=== PATIENT | female | born 1935 | race Caucasian/White ===

== ENCOUNTER 2020-03-22 03:42 | Inpatient (IN) | payer MEDICARE ==
[2020-03-22] MEDS ORDERED: IPRATROPIUM-ALBUTEROL 3 ML NEB INHALATION STA (03:45)
--- NOTE | 2020-03-22 03:48 | ED ---
SOB HPI - General Chief Complaint: Shortness of Breath Stated Complaint: FANTA Time Seen by Provider: 03/22/20 03:45 Source: patient, EMS, RN notes reviewed, old records reviewed Mode of arrival: EMS Limitations: no limitations - History of Present Illness Initial Comments: This is a 31-year-old female with a significantly poor strain secondary to clinical condition coming severely hypoxic in the 50s on BiPAP unresponsive. History obtained from EMS and patient's prior charting MD Complaint: shortness of breath -: unknown Severity: severe Severity scale (1-10): 10 Consistency: constant Improves With: oxygen, bronchodilators, upright position Worsens With: nothing Known History Of: other (unknown history) Associated Symptoms: denies other symptoms Treatments Prior to Arrival: none - Related Data Allergies Allergy/AdvReac Type Severity Reaction Status Date / Time codeine Allergy Anaphylaxis Verified 03/22/20 04:41 Penicillins Allergy Anaphylaxis Verified 03/22/20 04:41 Review of Systems ROS Statement: Those systems with pertinent positive or pertinent negative responses have been documented in the HPI. ROS Other: All systems not noted in ROS Statement are negative. Past Medical History Past Medical History: Unable to Obtain History of Any Multi-Drug Resistant Organisms: Unobtainable Past Surgical History: Unable to Obtain Past Psychological History: Unable to Obtain Smoking Status: Smoker, current status unknown Past Alcohol Use History: Unable to Obtain Past Drug Use History: Unable to Obtain General Exam Limitations: altered mental status General appearance: anxious, lethargic, obtunded, in distress Head exam: Present: atraumatic, normocephalic, normal inspection Eye exam: Present: normal appearance, PERRL, EOMI. Absent: scleral icterus, conjunctival injection, periorbital swelling ENT exam: Present: normal exam, mucous membranes moist Neck exam: Present: normal inspection. Absent: tenderness, meningismus, lymphadenopathy Respiratory exam: Present: respiratory distress, wheezes, accessory muscle use, decreased breath sounds, prolonged expiratory. Absent: rales, rhonchi, stridor Cardiovascular Exam: Present: regular rate, normal rhythm, normal heart sounds. Absent: systolic murmur, diastolic murmur, rubs, gallop, clicks GI/Abdominal exam: Present: soft, normal bowel sounds. Absent: distended, tenderness, guarding, rebound, rigid Extremities exam: Present: normal inspection, full ROM, normal capillary refill. Absent: tenderness, pedal edema, joint swelling, calf tenderness Back exam: Present: normal inspection Neurological exam: Present: alert, oriented X3, CN II-XII intact Psychiatric exam: Present: normal affect, normal mood Skin exam: Present: warm, dry, intact, normal color. Absent: rash Course Vital Signs 03/22/20 03/22/20 03/22/20 03:43 03:52 03:54 Temperature 97.4 F L Pulse Rate 90 87 Respiratory 18 35 H Rate Blood Pressure 148/92 O2 Sat by Pulse 97 Oximetry 03/22/20 04:29 Temperature Pulse Rate 77 Respiratory 18 Rate Blood Pressure 154/77 O2 Sat by Pulse 94 L Oximetry - Reevaluation(s) Reevaluation #1: 03/22/20 05:50 Medical record is reviewed with no prior hospital visits Reevaluation #2: 03/22/20 05:50 Patient has significant improvement on BiPAP is becoming more alert although still not conversing Reevaluation #3: 03/22/20 05:50 Patient is a no code - Consultations Consultation #1: Spoke with Dr. Roper who agrees to admit this patient Medical Decision Making - Medical Decision Making 84 female DF for evaluation persistent shortness of breath thickened disease. Patient be admitted for further evaluation management of severe hypoxia and monitoring of mental status - Lab Data Result diagrams: 03/22/20 03:48 03/22/20 03:48 Lab Results 03/22/20 03/22/20 03/22/20 Range/Units 03:48 03:48 03:48 WBC 17.4 H (3.8-10.6) k/uL RBC 3.96 (3.80-5.40) m/uL Hgb 12.0 (11.4-16.0) gm/dL Hct 37.1 (34.0-46.0) % MCV 93.7 (80.0-100.0) fL MCH 30.3 (25.0-35.0) pg MCHC 32.4 (31.0-37.0) g/dL RDW 15.8 H (11.5-15.5) % Plt Count 241 (150-450) k/uL MPV 7.9 Neutrophils % 81 % Lymphocytes % 8 % Monocytes % 6 % Eosinophils % 3 % Basophils % 1 % Neutrophils # 14.1 H (1.3-7.7) k/uL Lymphocytes # 1.4 (1.0-4.8) k/uL Monocytes # 1.0 (0-1.0) k/uL Eosinophils # 0.6 (0-0.7) k/uL Basophils # 0.1 (0-0.2) k/uL Sodium 127 L (137-145) mmol/L Potassium 5.3 H (3.5-5.1) mmol/L Chloride 93 L (98-107) mmol/L Carbon Dioxide 23 (22-30) mmol/L Anion Gap 11 mmol/L BUN 46 H (7-17) mg/dL Creatinine 1.54 H (0.52-1.04) mg/dL Est GFR (CKD-EPI)AfAm 36 (>60 ml/min/1.73 sqM) Est GFR (CKD-EPI)NonAf 31 (>60 ml/min/1.73 sqM) Glucose 292 H (74-99) mg/dL Plasma Lactic Acid Tom 2.2 H* (0.7-2.0) mmol/L Calcium 9.1 (8.4-10.2) mg/dL Phosphorus 7.1 H (2.5-4.5) mg/dL Magnesium 2.0 (1.6-2.3) mg/dL Total Bilirubin 1.0 (0.2-1.3) mg/dL AST 30 (14-36) U/L ALT 29 (4-34) U/L Alkaline Phosphatase 126 (38-126) U/L Creatine Kinase 33 (30-135) U/L Troponin I (0.000-0.034) ng/mL NT-Pro-B Natriuret Pep pg/mL Total Protein 6.2 L (6.3-8.2) g/dL Albumin 3.8 (3.5-5.0) g/dL 03/22/20 03/22/20 Range/Units 03:48 03:48 WBC (3.8-10.6) k/uL RBC (3.80-5.40) m/uL Hgb (11.4-16.0) gm/dL Hct (34.0-46.0) % MCV (80.0-100.0) fL MCH (25.0-35.0) pg MCHC (31.0-37.0) g/dL RDW (11.5-15.5) % Plt Count (150-450) k/uL MPV Neutrophils % % Lymphocytes % % Monocytes % % Eosinophils % % Basophils % % Neutrophils # (1.3-7.7) k/uL Lymphocytes # (1.0-4.8) k/uL Monocytes # (0-1.0) k/uL Eosinophils # (0-0.7) k/uL Basophils # (0-0.2) k/uL Sodium (137-145) mmol/L Potassium (3.5-5.1) mmol/L Chloride (98-107) mmol/L Carbon Dioxide (22-30) mmol/L Anion Gap mmol/L BUN (7-17) mg/dL Creatinine (0.52-1.04) mg/dL Est GFR (CKD-EPI)AfAm (>60 ml/min/1.73 sqM) Est GFR (CKD-EPI)NonAf (>60 ml/min/1.73 sqM) Glucose (74-99) mg/dL Plasma Lactic Acid Tom (0.7-2.0) mmol/L Calcium (8.4-10.2) mg/dL Phosphorus (2.5-4.5) mg/dL Magnesium (1.6-2.3) mg/dL Total Bilirubin (0.2-1.3) mg/dL AST (14-36) U/L ALT (4-34) U/L Alkaline Phosphatase (38-126) U/L Creatine Kinase (30-135) U/L Troponin I 0.075 H* (0.000-0.034) ng/mL NT-Pro-B Natriuret Pep 34081 pg/mL Total Protein (6.3-8.2) g/dL Albumin (3.5-5.0) g/dL - EKG Data -: EKG Interpreted by Me (EKG is sinus rhythm 89, [place] 04 QRS 96 QTc 450) - Radiology Data Radiology results: report reviewed (Chest x-ray shows bilateral diffuse edema and infiltrates infiltrate edema versus pneumonia), image reviewed Critical Care Time Critical Care Time: Yes Total Critical Care Time: 31 Disposition Clinical Impression: Community acquired pneumonia, Acute exacerbation of chronic obstructive pulmonary disease, Congestive heart failure, Acute pulmonary edema, Hypoxia Disposition: ADMITTED IP TO THIS [facility] Condition: Critical Is patient prescribed a controlled substance at d/c from ED?: No
[2020-03-22 04:02] LABS: Basophils # (A) 0.1 k/uL (0-0.2); Basophils % (A) 1 %; Eosinophils # (A) 0.6 k/uL (0-0.7); Eosinophils % (A) 3 %; HCT 37.1 % (34.0-46.0); Lymphocytes # (A) 1.4 k/uL (1.0-4.8); Lymphocytes % (A) 8 %; MCH 30.3 pg (25.0-35.0); MCHC 32.4 g/dL (31.0-37.0); MCV 93.7 fL (80.0-100.0); Mean Platelet Volume 7.9; Monocytes % (A) 6 %; Neutrophils # (A) 14.1 k/uL (1.3-7.7); Neutrophils % (A) 81 %; Platelet Count 241 k/uL (150-450); RBC 3.96 m/uL (3.80-5.40); RDW 15.8 % (11.5-15.5); WBC 17.4 k/uL (3.8-10.6)
[2020-03-22] MEDS ORDERED: MORPHINE SULFATE 2 MG/ML SYRINGE IVP STA (04:02)
[2020-03-22 04:11] LABS: Albumin 3.8 g/dL (3.5-5.0); Calcium 9.1 mg/dL (8.4-10.2); Phosphorus 7.1 mg/dL (2.5-4.5); Potassium 5.3 mmol/L (3.5-5.1); Total Protein 6.2 g/dL (6.3-8.2)
--- NOTE | 2020-03-22 04:13 | XR ---
EXAM: XR Chest, 1 View CLINICAL HISTORY: Shortness of breath. TECHNIQUE: Frontal view of the chest. COMPARISON: No previous study. FINDINGS: Lungs: Diffuse abnormal haziness is noted throughout the right lung differential etiologies which include atypical or diffuse pneumonia versus diffuse pulmonary edema. Pleural space: Small to moderate right pleural effusion. No pneumothorax. Heart: There is cardiomegaly. Mediastinum: Unremarkable. Bones/joints: Osteopenia. Vasculature: Atherosclerotic disease of the aortic knob. IMPRESSION: 1. Cardiomegaly. 2. Mild to moderate right pleural effusion appeared 3. Diffuse haziness throughout the right lung differential etiologies which include diffuse atypical pneumonia versus pulmonary edema. Clinical correlation is advised. 4. Atherosclerotic disease. 5. Osteopenia.
[2020-03-22] MEDS ORDERED: ALBUTEROL NEBULIZED 2.5 MG/3 ML INHALATION PRN (05:31)
[2020-03-22] MEDS ORDERED: AZITHROMYCIN 500 MG in SODIUM CHLORIDE 0.9% 250 ML IVPB STA (05:31)
[2020-03-22] MEDS ORDERED: PNEUMONIA PROTOCOL UTILIZED 1 EACH MISC PO PRN (05:31)
[2020-03-22] MEDS ORDERED: MORPHINE SULFATE 2 MG/ML SYRINGE IVP PRN (05:32)
[2020-03-22] MEDS ORDERED: LEVOFLOXACIN 750MG-D5W PMX 750 MG in DEXTROSE/WATER 1 150ML.BAG IVPB STA (05:35)
[2020-03-22 06:04] LABS: C Reactive Protein 44.8 mg/L (<10.0)
[2020-03-22] MEDS ORDERED: ONDANSETRON 4 MG/2 ML VIAL IVP STA (07:46)
[2020-03-22] MEDS: IPRATROPIUM-ALBUTEROL 3 ML NEB INHALATION SCH ×4 (07:56→19:50)
[2020-03-22] MEDS ORDERED: IPRATROPIUM-ALBUTEROL 3 ML NEB INHALATION PRN (11:57)
[2020-03-22] MEDS ORDERED: SPIRONOLACTONE 25 MG TAB PO SCH (12:00)
--- NOTE | 2020-03-22 12:27 | P.CRDCN ---
History of Present Illness Consult date: 03/22/20 Chief complaint: Shortness of breath History of present illness: This is an 84-year-old female patient who we consulted to see the emergency depa rtment today for further evaluation of shortness of breath. The patient somewhat is a poor historian. She was transferred from extended care facility mainly because of increasing shortness of breath and the need for more oxygen. Currently the patient is on BiPAP. She was seen at the emergency department with her daughter at bedside. The patient stated that for the last few days she has been more short of breath but no symptoms of chest pain or chest discomfort. No lower extremities edema. No fever or chills or cough. No dizziness or lightheadedness and no change in mental status until earlier today when the patient was at the shelter and the more obtunded. Because of that it was decided to bring the patient to the emergency department. The patient EKG showed sinus rhythm without any significant ST or T-wave abnormalities. She underwent a chest x-ray which showed bilateral infiltrate with a component of pulmonary edema as well. Subsequently the patient started on Lasix at 40 mg IV twice a day. The NT proBNP is 1500. Her lactic acid is elevated. The creatinine also is a slightly elevated. The patient was admitted according to her recently to [facility] with increasing shortness of breath and she was diagnosed was heart failure at that point. Past Medical History Past Medical History: Coronary Artery Disease (CAD), Heart Failure, COPD, CVA/TIA, Diabetes Mellitus, GERD/Reflux, Hyperlipidemia, Hypertension, Renal Disease, Syncope, Vascular Disorder Additional Past Medical History / Comment(s): Pt recently hospitalized 03/02/20 with CHF, bilateral pleural effusions/bilateral thoracentesis, syncope d/t hypoxia. Other hx: Aortic valve stenosis with replacement, cardiac arrhyth anuel, IDDM type II, CKD stage III, CVA with dysarthria/R sided weakness, chronic hypoxic respiratory failure, arthritis bilateral hands/feet, poor circulation, constipation History of Any Multi-Drug Resistant Organisms: None Reported Past Surgical History: Cardiac Valve Replacement, Heart Catheterization, Tonsillectomy Additional Past Surgical History / Comment(s): PAPITO, aortic valve replacement, colonoscopy Past Anesthesia/Blood Transfusion Reactions: No Reported Reaction Smoking Status: Never smoker - Past Family History Father Family Medical History: Myocardial Infarction (WA) Additional Family Medical History / Comment(s): Father of a [place] at the age of 47yrs. Mother Family Medical History: Coronary Artery Disease (CAD) Medications and Allergies Home Medications Medication Instructions Recorded Confirmed Type ALPRAZolam [Xanax] 0.25 mg PO TID PRN 03/22/20 03/22/20 History Acetaminophen Tab [Tylenol] 650 mg PO Q6H PRN 03/22/20 03/22/20 History Aspirin 81 mg PO DAILY 03/22/20 03/22/20 History Atenolol [Tenormin] 100 mg PO DAILY 03/22/20 03/22/20 History Atorvastatin [Lipitor] 20 mg PO HS 03/22/20 03/22/20 History Budesonide [Pulmicort] 0.5 mg INHALATION RT-BID@0600,2100 03/22/20 03/22/20 History Citalopram Hydrobromide [CeleXA] 20 mg PO DAILY 03/22/20 03/22/20 History Clotrimazole/Betamethasone Dip 1 applic TOPICAL BID 03/22/20 03/22/20 History [Lotrisone Cream] Furosemide [Lasix] 20 mg PO BID@0600,1200 03/22/20 03/22/20 History INSULIN LISPRO (humaLOG) [humaLOG] 2 units SQ ACHS 03/22/20 03/22/20 History Ipratropium-Albuterol Nebulize 3 ml INHALATION RT-Q6H PRN 03/22/20 03/22/20 History [Duoneb 0.5 mg-3 mg/3 ml Soln] Isosorbide Mononitrate ER [Imdur] 30 mg PO DAILY 03/22/20 03/22/20 History Linagliptin [Tradjenta] 5 mg PO DAILY 03/22/20 03/22/20 History Melatonin 3 mg PO HS 03/22/20 03/22/20 History Methylphenidate HCl [Ritalin] 20 mg PO BID@0600,1200 03/22/20 03/22/20 History Montelukast Sodium [Singulair] 10 mg PO HS 03/22/20 03/22/20 History Nystatin 100,000 Unit/ml Susp 500,000 units PO QID 03/22/20 03/22/20 History [Mycostatin Oral Susp] Pantoprazole Sodium [Protonix] 40 mg PO DAILY@0600 03/22/20 03/22/20 History Sennosides/Docusate Sodium [Senna 1 tab PO BID@0600,2100 03/22/20 03/22/20 History Plus 8.6-50 mg Tablet] Spironolactone [Aldactone] 25 mg PO DAILY 03/22/20 03/22/20 History amLODIPine [Norvasc] 10 mg PO DAILY 03/22/20 03/22/20 History cloNIDine HCL [Catapres] 0.05 mg PO BID 03/22/20 03/22/20 History diphenhydrAMINE & Zinc Cream 1 applic TOPICAL TID PRN 03/22/20 03/22/20 History [Benadryl Cream] hydrALAZINE HCL [Apresoline] 100 mg PO BID 03/22/20 03/22/20 History Allergies Allergy/AdvReac Type Severity Reaction Status Date / Time codeine Allergy Anaphylaxis Verified 03/22/20 07:39 Penicillins Allergy Anaphylaxis Verified 03/22/20 07:39 Physical Exam Vitals: Vital Signs Temp Pulse Resp BP Pulse Ox 03/22/20 09:17 61 20 108/44 95 03/22/20 08:08 64 03/22/20 07:56 64 03/22/20 07:41 64 24 120/52 93 L 03/22/20 07:14 67 18 119/48 93 L 03/22/20 04:29 77 18 154/77 94 L 03/22/20 03:54 87 03/22/20 03:52 35 H 03/22/20 03:43 97.4 F L 90 18 148/92 97 Intake and Output 03/21/20 03/22/20 03/22/20 22:59 06:59 14:59 Other: Weight 68.9 kg 68.9 kg - Constitutional General appearance: no acute distress - Respiratory Respiratory: bilateral: diminished - Cardiovascular Heart sounds: normal: S1, S2 Abnormal Heart Sounds: systolic murmur Results 03/22/20 03:48 03/22/20 03:48 Cardiac Enzymes 03/22/20 03/22/20 03/22/20 Range/Units 03:48 03:48 03:48 AST 30 (14-36) U/L Lactate Dehydrogenase 862 H (313-618) U/L Troponin I 0.075 H* (0.000-0.034) ng/mL CBC 03/22/20 Range/Units 03:48 WBC 17.4 H (3.8-10.6) k/uL RBC 3.96 (3.80-5.40) m/uL Hgb 12.0 (11.4-16.0) gm/dL Hct 37.1 (34.0-46.0) % Plt Count 241 (150-450) k/uL Comprehensive Metabolic Panel 03/22/20 Range/Units 03:48 Sodium 127 L (137-145) mmol/L Potassium 5.3 H (3.5-5.1) mmol/L Chloride 93 L (98-107) mmol/L Carbon Dioxide 23 (22-30) mmol/L BUN 46 H (7-17) mg/dL Creatinine 1.54 H (0.52-1.04) mg/dL Glucose 292 H (74-99) mg/dL Calcium 9.1 (8.4-10.2) mg/dL AST 30 (14-36) U/L ALT 29 (4-34) U/L Alkaline Phosphatase 126 (38-126) U/L Total Protein 6.2 L (6.3-8.2) g/dL Albumin 3.8 (3.5-5.0) g/dL Current Medications Generic Name Dose Route Start Last Admin Trade Name Freq PRN Reason Stop Dose Admin Acetaminophen 650 mg 03/22/20 11:54 Acetaminophen Tab 325 Mg Tab PO Q6H PRN Pain Albuterol Sulfate 2.5 mg 03/22/20 05:31 Albuterol Nebulized 2.5 Mg/3 Ml INHALATION RT-Q4H PRN Shortness Of Breath Or Wheezing Albuterol/Ipratropium 3 ml 03/22/20 08:00 03/22/20 07:56 Ipratropium-Albuterol 3 Ml Neb INHALATION 3 ml RT-QID LANEY Administration Albuterol/Ipratropium 3 ml 03/22/20 11:57 Ipratropium-Albuterol 3 Ml Neb INHALATION RT-Q6H PRN Shortness Of Breath Amlodipine Besylate 10 mg 03/23/20 09:00 Amlodipine 10 Mg Tab PO DAILY [facility] Aspirin 81 mg 03/23/20 09:00 Aspirin 81 Mg PO DAILY [facility] Atenolol 100 mg 03/23/20 09:00 Atenolol 50 Mg Tab PO DAILY [facility] Atorvastatin Calcium 20 mg 03/22/20 21:00 Atorvastatin 20 Mg Tab PO HS [facility] Betamethasone/Clotrimazole 1 applic 03/22/20 21:00 Clotrimazole/Betameth 1-0.05% Cream 45 Gm Tube TOPICAL BID [facility] Budesonide 0.5 mg 03/22/20 21:00 Budesonide 0.5 Mg/2 Ml Nebu INHALATION RT-BID@0600,2100 [facility] Citalopram Hydrobromide 20 mg 03/23/20 09:00 Citalopram Hydrobromide 20 Mg Tab PO DAILY [facility] Clonidine 0.05 mg 03/22/20 21:00 Clonidine Hcl 0.1 Mg Tab PO BID [facility] Furosemide 40 mg 03/22/20 12:00 Furosemide 10 Mg/Ml 4 Ml Vial IV Q12HR [facility] Hydralazine HCl 100 mg 03/22/20 21:00 Hydralazine Hcl 50 Mg Tab PO BID [facility] Isosorbide Mononitrate 30 mg 03/23/20 09:00 Isosorbide Mononitrate Er 30 Mg Tab.Er.24h PO DAILY [facility] Miscellaneous Information 1 each 03/22/20 05:31 Pneumonia Protocol Utilized 1 Each Misc PO ONCE PRN Per Protocol Morphine Sulfate 2 mg 03/22/20 05:32 Morphine Sulfate 2 Mg/Ml Syringe IVP Q4H PRN Pain/Discomfort Nystatin 500,000 unit 03/22/20 13:00 Nystatin 100,000 Unit/Ml Susp 500,000 Unit/5 Ml Cup PO QID [facility] Senna/Docusate Sodium 1 each 03/22/20 21:00 Sennosides-Docusate Sodium 1 Each Tab PO BID@0600,2100 [facility] Intake and Output 03/21/20 03/22/20 03/22/20 22:59 06:59 14:59 Other: Weight 68.9 kg 68.9 kg Patient Weight 03/23/20 06:59 Weight 68.9 kg 03/22/20 03:48 03/22/20 03:48 Assessment and Plan Assessment: Assessment #1 mild acute respiratory distress #2 heart failure of unknown etiology at this point #3 possible underlying pneumonia #4 renal failure #5 hypertension #6 multiple comorbid conditions Plan #1 continue the IV Lasix for additional 24 hours #2 continue monitoring the kidney function and electrolytes #3 obtain an echocardiogram was Doppler to assess ejection fraction #4 follow-up with the patient
[2020-03-22] MEDS: FUROSEMIDE 10 MG/ML 4 ML VIAL IV SCH ×2 (13:05→20:17)
[2020-03-22] MEDS: LORazepam 2 MG/ML INJ IV PRN ×2 (13:06→22:47)
[2020-03-22] MEDS: NYSTATIN 100,000 UNIT/ML SUSP 500,000 UNIT/5 ML CUP PO SCH ×3 (13:30→20:16)
--- NOTE | 2020-03-22 15:13 | P.HPIM ---
History of Present Illness H&P Date: 03/22/20 Chief Complaint: Difficulty breathing HISTORY OF PRESENT ILLNESS This is an 84-year-old female patient of Dr. Valente with past medical history of coronary artery disease, aortic valve stenosis status post replacement, chronic systolic heart failure, diabetes mellitus type 2, hypertension, hyperlipidemia, CVA with dysarthria and right-sided weakness, chronic hypoxic respiratory failure on home O2, chronic kidney disease stage III, generalized anxiety disorder. Patient was recently seen at [facility] which time she was treated for pleural effusions status post bilateral thoracentesis. Patient is known to have severe tricuspid regurgitation. Patient was recently started on methylphenidate 20 mg twice daily. She went to [facility] but had a panic attack and [facility]. Also [facility] did not have BiPAP which she required. She was stabilized and then discharged back to [facility]. Patient was then doing well until yesterday when she developed increasing shortness of breath. He also had increasing lower extremity edema. Denies having any chest pain. No lightheadedness or dizziness. Patient presented to [facility] emergency center for evaluation. EKG was sinus rhythm without acute ST changes. Chest x-ray showed bilateral infiltrates with component of pulmonary edema. ProBNP 31110. Lactic acid 2.2 with repeat of 1.3. Sodium 127, potassium 5.3, chloride 93, CO2 23, BUN 46 and creatinine 1.54. Blood sugar 292. Phosphorus 7.1, magnesium 2.0. LDH 862. Troponin 0.075. C-reactive protein 44.8. Coronavirus PCR not detected. Patient has been started on IV Lasix 40 mg twice daily, consults requested with pulmonary medicine, cardiology and nephrology. REVIEW OF SYSTEMS Constitutional: No fever, no chills, no night sweats. No weight change. Reports weakness, reports fatigue. No daytime sleepiness. EENT: No headache. No blurred vision or double vision, no loss of vision. No loss of Hearing, no ringing in the ears, no dizziness. No nasal drainage or congestion. No epistaxis. No sore throat. Lungs: Reports shortness of breath, cough, no sputum production. No wheezing. Cardiovascular: No chest pain, reports lower extremity edema. No palpitations. No paroxysmal nocturnal dyspnea. No orthopnea. No lightheadedness or dizziness. No syncopal episodes. Abdominal: No abdominal pain. No nausea, vomiting. No diarrhea. No constipation. No bloody or tarry stools reports loss of appetite. Genitourinary: No dysuria, increased frequency, urgency. No urinary retention. Musculoskeletal: No myalgias. No muscle weakness, no gait dysfunction, no frequent falls. No back pain. No neck pain. Integumentary: No wounds, no lesions. No rash or pruritus. No unusual bruising. No change in hair or nails. Neurologic: No aphasia. No facial droop. No change in mentation. No head injury. No headache. No paralysis. No paresthesia. Psychiatric: No depression. No anxiety. No mood swings. Endocrine: No abnormal blood sugars. No weight change. No excessive sweating or thirst. No cold intolerance. PHYSICAL EXAMINATION Gen: This is an 84-year-old female. Patient is on the ER stretcher. Daughter places at the bedside. HEENT: Head is atraumatic, normocephalic. Pupils equal, round. Sclerae is anicteric. Patient is on BiPAP. NECK: Supple. No JVD. No lymphadenopathy. No thyromegaly. LUNGS: Clear to auscultation. No wheezes or rhonchi. Mild to moderate intercostal retractions. HEART: Regular rate and rhythm. Systolic murmur. ABDOMEN: Soft. Bowel sounds are present. No masses. No tenderness. EXTREMITIES: 1+ bilateral pedal edema. No calf tenderness. NEUROLOGICAL: Patient is awake, alert and oriented x3. Cranial nerves 2 through 12 are grossly intact. ASSESSMENT AND PLAN 1. Acute on chronic hypoxic respiratory failure requiring BiPAP. Consult pulmonary medicine. Continue oxygen therapy with BiPAP. Continue DuoNeb treatments 4 times daily and as needed, Pulmicort 0.5 mg twice daily and repeat chest x-ray tomorrow. Pro-calcitonin ordered, sputum culture. 2. Acute on chronic heart failure, possible systolic. Echocardiogram ordered. Patient started on Lasix 40 mg IV twice daily, cardiology consult, monitor I&O and daily weights, monitor electrolytes and renal function. 3. Acute kidney injury with chronic kidney disease stage III. Consult with nephrology added. 4. Hyponatremia. 5. Diabetes mellitus type 2, uncontrolled with hyperglycemia. 6. Hypertension. Continue amlodipine 10 mg daily, atenolol 100 mg daily, Catapres 0.05 mg twice daily, hydralazine 100 mg twice daily. 7. Hyperlipidemia. Continue Lipitor 29 g at bedtime 8. History of CVA with right-sided weakness. Continue aspirin 81 mg daily, Lipitor 20 mg at bedtime for secondary prevention 9. History of coronary artery disease. Continue Imdur 30 mg daily. 10. Generalized anxiety disorder. Xanax on hold. Lorazepam 0.5 mg every 8 hours as needed for anxiety 11. GI prophylaxis. Protonix. 12. DVT prophylaxis. Heparin subcu. CODE STATUS: No code Patient will be admitted to the hospital for a minimum of 2 night stay. DISCHARGE PLAN Return to [facility] most likely. Impression and plan of care have been directed as dictated by the signing physician. Irma Stoll nurse practitioner acting as scribe for signing physician. Past Medical History Past Medical History: Coronary Artery Disease (CAD), Heart Failure, COPD, CVA/TIA, Diabetes Mellitus, GERD/Reflux, Hyperlipidemia, Hypertension, Renal Disease, Syncope, Vascular Disorder Additional Past Medical History / Comment(s): Pt recently hospitalized 03/02/20 with CHF, bilateral pleural effusions/bilateral thoracentesis, syncope d/t hypoxia. Other hx: Aortic valve stenosis with replacement, cardiac arrhythmia, IDDM type II, CKD stage III, CVA with dysarthria/R sided weakness, chronic hypoxic respiratory failure, arthritis bilateral hands/feet, poor circulation, constipation History of Any Multi-Drug Resistant Organisms: None Reported Past Surgical History: Cardiac Valve Replacement, Heart Catheterization, Tonsillectomy Additional Past Surgical History / Comment(s): PAPITO, aortic valve replacement, colonoscopy Smoking Status: Never smoker - Past Family History Father Family Medical History: Myocardial Infarction (ID) Additional Family Medical History / Comment(s): Father of a ID at the age of 47yrs. Mother Family Medical History: Coronary Artery Disease (CAD) Medications and Allergies Home Medications Medication Instructions Recorded Confirmed Type ALPRAZolam [Xanax] 0.25 mg PO TID PRN 03/22/20 03/22/20 History Acetaminophen Tab [Tylenol] 650 mg PO Q6H PRN 03/22/20 03/22/20 History Aspirin 81 mg PO DAILY 03/22/20 03/22/20 History Atenolol [Tenormin] 100 mg PO DAILY 03/22/20 03/22/20 History Atorvastatin [Lipitor] 20 mg PO HS 03/22/20 03/22/20 History Budesonide [Pulmicort] 0.5 mg INHALATION RT-BID@0600,2100 03/22/20 03/22/20 History Citalopram Hydrobromide [CeleXA] 20 mg PO DAILY 03/22/20 03/22/20 History Clotrimazole/Betamethasone Dip 1 applic TOPICAL BID 03/22/20 03/22/20 History [Lotrisone Cream] Furosemide [Lasix] 20 mg PO BID@0600,1200 03/22/20 03/22/20 History INSULIN LISPRO (humaLOG) [humaLOG] 2 units SQ ACHS 03/22/20 03/22/20 History Ipratropium-Albuterol Nebulize 3 ml INHALATION RT-Q6H PRN 03/22/20 03/22/20 History [Duoneb 0.5 mg-3 mg/3 ml Soln] Isosorbide Mononitrate ER [Imdur] 30 mg PO DAILY 03/22/20 03/22/20 History Linagliptin [Tradjenta] 5 mg PO DAILY 03/22/20 03/22/20 History Melatonin 3 mg PO HS 03/22/20 03/22/20 History Methylphenidate HCl [Ritalin] 20 mg PO BID@0600,1200 03/22/20 03/22/20 History Montelukast Sodium [Singulair] 10 mg PO HS 03/22/20 03/22/20 History Nystatin 100,000 Unit/ml Susp 500,000 units PO QID 03/22/20 03/22/20 History [Mycostatin Oral Susp] Pantoprazole Sodium [Protonix] 40 mg PO DAILY@0600 03/22/20 03/22/20 History Sennosides/Docusate Sodium [Senna 1 tab PO BID@0600,2100 03/22/20 03/22/20 History Plus 8.6-50 mg Tablet] Spironolactone [Aldactone] 25 mg PO DAILY 03/22/20 03/22/20 History amLODIPine [Norvasc] 10 mg PO DAILY 03/22/20 03/22/20 History cloNIDine HCL [Catapres] 0.05 mg PO BID 03/22/20 03/22/20 History diphenhydrAMINE & Zinc Cream 1 applic TOPICAL TID PRN 03/22/20 03/22/20 History [Benadryl Cream] hydrALAZINE HCL [Apresoline] 100 mg PO BID 03/22/20 03/22/20 History Allergies Allergy/AdvReac Type Severity Reaction Status Date / Time codeine Allergy Anaphylaxis Verified 03/22/20 07:39 Penicillins Allergy Anaphylaxis Verified 03/22/20 07:39 Physical Exam Vitals: Vital Signs Temp Pulse Resp BP Pulse Ox 03/22/20 09:17 61 20 108/44 95 03/22/20 08:08 64 03/22/20 07:56 64 03/22/20 07:41 64 24 120/52 93 L 03/22/20 07:14 67 18 119/48 93 L 03/22/20 04:29 77 18 154/77 94 L 03/22/20 03:54 87 03/22/20 03:52 35 H 03/22/20 03:43 97.4 F L 90 18 148/92 97 Intake and Output 03/21/20 03/22/20 03/22/20 22:59 06:59 14:59 Other: Weight 68.9 kg 68.9 kg Results CBC & Chem 7: 03/22/20 03:48 03/22/20 03:48 Labs: Abnormal Lab Results - Last 24 Hours (Table) 03/22/20 03/22/20 03/22/20 Range/Units 03:48 03:48 03:48 WBC 17.4 H (3.8-10.6) k/uL RDW 15.8 H (11.5-15.5) % Neutrophils # 14.1 H (1.3-7.7) k/uL Sodium 127 L (137-145) mmol/L Potassium 5.3 H (3.5-5.1) mmol/L Chloride 93 L (98-107) mmol/L BUN 46 H (7-17) mg/dL Creatinine 1.54 H (0.52-1.04) mg/dL Glucose 292 H (74-99) mg/dL Plasma Lactic Acid Tom 2.2 H* (0.7-2.0) mmol/L Phosphorus 7.1 H (2.5-4.5) mg/dL Lactate Dehydrogenase (313-618) U/L Troponin I (0.000-0.034) ng/mL C-Reactive Protein (<10.0) mg/L Total Protein 6.2 L (6.3-8.2) g/dL 03/22/20 03/22/20 Range/Units 03:48 03:48 WBC (3.8-10.6) k/uL RDW (11.5-15.5) % Neutrophils # (1.3-7.7) k/uL Sodium (137-145) mmol/L Potassium (3.5-5.1) mmol/L Chloride (98-107) mmol/L BUN (7-17) mg/dL Creatinine (0.52-1.04) mg/dL Glucose (74-99) mg/dL Plasma Lactic Acid Tom (0.7-2.0) mmol/L Phosphorus (2.5-4.5) mg/dL Lactate Dehydrogenase 862 H (313-618) U/L Troponin I 0.075 H* (0.000-0.034) ng/mL C-Reactive Protein 44.8 H (<10.0) mg/L Total Protein (6.3-8.2) g/dL
[2020-03-22 17:08] LABS: Glucose,Whole Blood 126 mg/dL (75-99)
[2020-03-22] MEDS: ACETAMINOPHEN TAB 325 MG TAB PO PRN (18:08)
[2020-03-22] MEDS: BUDESONIDE 0.5 MG/2 ML NEBU INHALATION SCH (20:07)
[2020-03-22] MEDS: SENNOSIDES-DOCUSATE SODIUM 1 EACH TAB PO SCH (20:16)
[2020-03-22] MEDS: hydrALAZINE HCL 50 MG TAB PO SCH (20:16)
[2020-03-22] MEDS: HEPARIN SODIUM,PORCINE 5,000 UNIT/ML 1 ML VIAL SQ SCH (20:16)
[2020-03-22] MEDS: CLOTRIMAZOLE/BETAMETH 1-0.05% CREAM 45 GM TUBE TOPICAL SCH (20:16)
[2020-03-22] MEDS: cloNIDine HCL 0.1 MG TAB PO SCH (20:16)
[2020-03-22] MEDS: ATORVASTATIN 20 MG TAB PO SCH (20:16)
[2020-03-22 20:21] LABS: Glucose,Whole Blood 188 mg/dL (75-99)
[2020-03-23] MEDS ORDERED: AZITHROMYCIN 500 MG TAB PO SCH (05:31)
[2020-03-23 06:12] LABS: Glucose,Whole Blood 146 mg/dL (75-99)
[2020-03-23] MEDS: PANTOPRAZOLE 40 MG TABLET PO SCH (06:28)
[2020-03-23] MEDS: SENNOSIDES-DOCUSATE SODIUM 1 EACH TAB PO SCH ×2 (06:28→20:12)
[2020-03-23] MEDS: BUDESONIDE 0.5 MG/2 ML NEBU INHALATION SCH ×3 (07:41→19:40)
[2020-03-23] MEDS: IPRATROPIUM-ALBUTEROL 3 ML NEB INHALATION SCH ×4 (07:42→19:37)
--- NOTE | 2020-03-23 08:15 | XR ---
EXAMINATION TYPE: XR chest 1V portable DATE OF EXAM: 03/23/2020 COMPARISON: 03/22/2020 INDICATION: Pneumonia TECHNIQUE: Single frontal view of the chest is obtained. FINDINGS: The heart size is upper limits of normal. The pulmonary vasculature is prominent. Bibasilar infiltrates are present. Small pleural effusions are present. IMPRESSION: 1. Clinical correlation recommended for congestive heart failure. Bibasilar pneumonia could be consid ered. Bibasilar atelectasis is slightly favored.
[2020-03-23] MEDS: CITALOPRAM HYDROBROMIDE 20 MG TAB PO SCH (09:24)
[2020-03-23] MEDS: ISOSORBIDE MONONITRATE ER 30 MG TAB.ER.24H PO SCH (09:24)
[2020-03-23] MEDS: HEPARIN SODIUM,PORCINE 5,000 UNIT/ML 1 ML VIAL SQ SCH ×2 (09:24→20:12)
[2020-03-23] MEDS: ASPIRIN 81 MG PO SCH (09:25)
[2020-03-23] MEDS: cloNIDine HCL 0.1 MG TAB PO SCH ×2 (09:25→20:12)
[2020-03-23] MEDS: hydrALAZINE HCL 50 MG TAB PO SCH ×2 (09:25→20:12)
[2020-03-23] MEDS: atenoloL 50 MG TAB PO SCH (09:25)
[2020-03-23] MEDS: amLODIPine 10 MG TAB PO SCH (09:25)
[2020-03-23] MEDS: NYSTATIN 100,000 UNIT/ML SUSP 500,000 UNIT/5 ML CUP PO SCH ×4 (09:26→20:12)
[2020-03-23] MEDS: FUROSEMIDE 10 MG/ML 4 ML VIAL IV SCH ×2 (09:26→20:12)
[2020-03-23] MEDS: CLOTRIMAZOLE/BETAMETH 1-0.05% CREAM 45 GM TUBE TOPICAL SCH ×2 (09:26→20:13)
[2020-03-23 11:39] LABS: Glucose,Whole Blood 163 mg/dL (75-99)
[2020-03-23] MEDS ORDERED: VANCOMYCIN IV PER PHARMACY 1 EACH MISC MISCELLANE PRN (12:21)
[2020-03-23] MEDS: LEVOFLOXACIN 500MG-D5W PMX 500 MG in DEXTROSE/WATER 1 100ML.BAG IVPB SCH (13:01)
[2020-03-23] MEDS: VANCOMYCIN 1,250 MG in SODIUM CHLORIDE 0.9% 250 ML IVPB SCH (13:02)
[2020-03-23 13:38] LABS: Basophils # (A) 0.1 k/uL (0-0.2); Basophils % (A) 1 %; Eosinophils # (A) 0.2 k/uL (0-0.7); Eosinophils % (A) 2 %; HCT 31.6 % (34.0-46.0); HGB 10.2 gm/dL (11.4-16.0); Lymphocytes # (A) 0.8 k/uL (1.0-4.8); Lymphocytes % (A) 10 %; MCH 30.7 pg (25.0-35.0); MCHC 32.3 g/dL (31.0-37.0); MCV 95.1 fL (80.0-100.0); Mean Platelet Volume 7.9; Monocytes # (A) 0.6 k/uL (0-1.0); Monocytes % (A) 7 %; Neutrophils # (A) 6.3 k/uL (1.3-7.7); Neutrophils % (A) 78 %; Platelet Count 172 k/uL (150-450); RBC 3.32 m/uL (3.80-5.40); RDW 15.4 % (11.5-15.5)
[2020-03-23 13:48] LABS: Calcium 8.5 mg/dL (8.4-10.2)
--- NOTE | 2020-03-23 13:58 | P.NPCON ---
History of Present Illness - Reason for Consult acute renal failure - History of Present Illness Reason for consultation: Acute kidney injury and hyponatremia History of present illness: Patient is a 84-year-old female seen in consultation for acute kidney injury and hyponatremia. Creatinine was 1.54 on admission and is 1.66 today. Sodium level was 127 and is 128 today. Patient presented to the hospital from [facility] with shortness of breath. She was noted to be unresponsive with oxygen saturation in the 50s. Currently she is on a high flow nasal cannula 15 L. Blood pressure is stable. No active chest pain or shortness of breath. Chest x-ray suggestive of fluid overload. No vomiting or diarrhea. Oral intake fair. Currently maintained on IV Lasix. Has a Calix catheter. No dizziness or syncopal episodes. She has been evaluated by cardiology. Echocardiogram is pending. No hematuria or dysuria. No fever or chills. Denies any cough. Denies regular use of nonsteroidals. No family history of renal disease. She does have long- standing history of diabetes. Currently sitting up in chair. Vital signs are stable. General: The patient appeared well nourished and normally developed. HEENT: Head exam is unremarkable. Neck is without jugular venous distension. LUNGS: Breath sounds decreased. HEART: Rate and Rhythm are regular. ABDOMEN: Soft, nontender. EXTREMITITES: Trace edema. Past Medical History Past Medical History: Coronary Artery Disease (CAD), Heart Failure, COPD, CVA/TIA, Diabetes Mellitus, GERD/Reflux, Hyperlipidemia, Hypertension, Renal Disease, Syncope, Vascular Disorder Additional Past Medical History / Comment(s): Pt recently hospitalized 03/02/20 with CHF, bilateral pleural effusions/bilateral thoracentesis, syncope d/t hypoxia. Other hx: Aortic valve stenosis with replacement, cardiac arr hythmia, IDDM type II, CKD stage III, CVA with dysarthria/R sided weakness, chronic hypoxic respiratory failure, arthritis bilateral hands/feet, poor circulation, constipation History of Any Multi-Drug Resistant Organisms: None Reported Past Surgical History: Cardiac Valve Replacement, Heart Catheterization, Tonsillectomy Additional Past Surgical History / Comment(s): PAPITO, aortic valve replacement, colonoscopy Past Anesthesia/Blood Transfusion Reactions: No Reported Reaction Smoking Status: Never smoker - Past Family History Father Family Medical History: Myocardial Infarction (MA) Additional Family Medical History / Comment(s): Father of a MA at the age of 47yrs. Mother Family Medical History: Coronary Artery Disease (CAD) Medications and Allergies Home Medications Medication Instructions Recorded Confirmed Type ALPRAZolam [Xanax] 0.25 mg PO TID PRN 03/22/20 03/22/20 History Acetaminophen Tab [Tylenol] 650 mg PO Q6H PRN 03/22/20 03/22/20 History Aspirin 81 mg PO DAILY 03/22/20 03/22/20 History Atenolol [Tenormin] 100 mg PO DAILY 03/22/20 03/22/20 History Atorvastatin [Lipitor] 20 mg PO HS 03/22/20 03/22/20 History Budesonide [Pulmicort] 0.5 mg INHALATION RT-BID@0600,2100 03/22/20 03/22/20 History Citalopram Hydrobromide [CeleXA] 20 mg PO DAILY 03/22/20 03/22/20 History Clotrimazole/Betamethasone Dip 1 applic TOPICAL BID 03/22/20 03/22/20 History [Lotrisone Cream] Furosemide [Lasix] 20 mg PO BID@0600,1200 03/22/20 03/22/20 History INSULIN LISPRO (humaLOG) [humaLOG] 2 units SQ ACHS 03/22/20 03/22/20 History Ipratropium-Albuterol Nebulize 3 ml INHALATION RT-Q6H PRN 03/22/20 03/22/20 History [Duoneb 0.5 mg-3 mg/3 ml Soln] Isosorbide Mononitrate ER [Imdur] 30 mg PO DAILY 03/22/20 03/22/20 History Linagliptin [Tradjenta] 5 mg PO DAILY 03/22/20 03/22/20 History Melatonin 3 mg PO HS 03/22/20 03/22/20 History Methylphenidate HCl [Ritalin] 20 mg PO BID@0600,1200 03/22/20 03/22/20 History Montelukast Sodium [Singulair] 10 mg PO HS 03/22/20 03/22/20 History Nystatin 100,000 Unit/ml Susp 500,000 units PO QID 03/22/20 03/22/20 History [Mycostatin Oral Susp] Pantoprazole Sodium [Protonix] 40 mg PO DAILY@0600 03/22/20 03/22/20 History Sennosides/Docusate Sodium [Senna 1 tab PO BID@0600,2100 03/22/20 03/22/20 History Plus 8.6-50 mg Tablet] Spironolactone [Aldactone] 25 mg PO DAILY 03/22/20 03/22/20 History amLODIPine [Norvasc] 10 mg PO DAILY 03/22/20 03/22/20 History cloNIDine HCL [Catapres] 0.05 mg PO BID 03/22/20 03/22/20 History diphenhydrAMINE & Zinc Cream 1 applic TOPICAL TID PRN 03/22/20 03/22/20 History [Benadryl Cream] hydrALAZINE HCL [Apresoline] 100 mg PO BID 03/22/20 03/22/20 History Allergies Allergy/AdvReac Type Severity Reaction Status Date / Time codeine Allergy Anaphylaxis Verified 03/22/20 07:39 Penicillins Allergy Anaphylaxis Verified 03/22/20 07:39 Physical Exam Vitals: Vital Signs Temp Pulse Pulse Resp BP Pulse Ox 03/23/20 12:00 98.1 F 65 17 104/47 93 L 03/23/20 11:10 68 03/23/20 10:57 68 03/23/20 09:40 98 F 72 18 127/53 91 L 03/23/20 04:00 98.9 F 74 22 132/54 95 03/22/20 23:39 98.8 F 86 21 123/56 91 L 03/22/20 20:01 60 03/22/20 20:00 100 F H 89 18 134/64 91 L 03/22/20 19:50 60 03/22/20 16:23 60 03/22/20 16:12 60 03/22/20 16:00 100.5 F H 74 152/64 92 L Intake and Output 03/22/20 03/23/20 03/23/20 22:59 06:59 14:59 Intake Total 125 125 Output Total 460 510 Balance -335 -510 125 Intake: Oral 125 125 Output: Urine 460 510 Other: Voiding Method Indwelling Catheter Indwelling Catheter Indwelling Catheter Results - Lab Results Most recent lab results Calcium 9.1 mg/dL (8.4-10.2) 03/22/20 03:48 Phosphorus 7.1 mg/dL (2.5-4.5) H 03/22/20 03:48 Magnesium 2.0 mg/dL (1.6-2.3) 03/22/20 03:48 03/23/20 13:09 03/22/20 03:48 Assessment and Plan Plan: Assessment: 1. Acute kidney injury versus chronic kidney disease. No prior records available. Creatinine serially stable at 1.66 today. 2. Hypervolemic hyponatremia. 3. CHF. Unknown ejection fraction. Echocardiogram pending. 4. Fluid overload. 5. Diabetes mellitus. 6. Acute hypoxic respiratory failure. 7. Hypertension with chronic kidney disease. Blood pressure little on the lower side. Plan: Maintain IV Lasix. Low-salt diet and 1200 mL fluid restriction. Strict is and os. Check urinalysis. Check renal ultrasound. Follow-up echocardiogram. Repeat electrolytes in the morning. Hold hydralazine for systolic blood pressure less than 120. Thank you for the consultation. I will continue to follow the patient with you during her hospital stay.
--- NOTE | 2020-03-23 14:06 | P.PN ---
Subjective Progress Note Date: 03/23/20 HISTORY OF PRESENT ILLNESS: Patient examined this morning at the bedside. She denies chest pain or pressure. She reports feeling short of breath. She is on 15 L nasal cannula. She remains on IV Lasix. Creatinine 1.66 today, up from 1.54 yesterday. Fluid balance of the last 24 hours is -845 mL. PHYSICAL EXAM: VITAL SIGNS: Reviewed. GENERAL: Well-developed in no acute distress. NECK: Supple. No JVD or thyromegaly LUNGS: Respirations even and unlabored. Lungs diminished. HEART: Regular rate and rhythm. S1 and S2 heard. Systolic mumur noted. EXTREMITIES: Normal range of motion. No clubbing or cyanosis. Peripheral pulses intact. Trace bilateral lower extremity edema ASSESSMENT: Acute exacerbation of chronic heart failure, type unknown, echo pending Possible pneumonia Acute hypoxic respiratory failure Acute on chronic kidney disease Hypertension Hyperlipidemia History of CVA with right-sided weakness Diabetes mellitus PLAN: 2D echo ordered. Await results Wean oxygen as tolerated Continue IV lasix Monitor kidney function Accurate I&O Daily weights Further recommendations pending patient course Nurse practitioner note has been reviewed by physician. Signing provider agrees with the documented findings, assessment, and plan of care. Objective - Vital Signs Vital signs: Vital Signs Temp 98.1 F 03/23/20 12:00 Pulse 65 03/23/20 12:00 Resp 17 03/23/20 12:00 BP 104/47 03/23/20 12:00 Pulse Ox 93 L 03/23/20 12:00 Intake & Output 03/22/20 03/23/20 03/23/20 18:59 06:59 18:59 Intake Total 125 125 Output Total 970 Balance 125 -970 125 Weight 68.9 kg Intake: Oral 125 125 Output: Urine 970 Other: Voiding Method Indwelling Catheter Indwelling Catheter - Labs CBC & Chem 7: 03/23/20 13:09 03/23/20 13:09 Labs: Abnormal Lab Results - Last 24 Hours (Table) 03/22/20 03/22/20 03/22/20 Range/Units 03:48 17:02 20:19 RBC (3.80-5.40) m/uL Hgb (11.4-16.0) gm/dL Hct (34.0-46.0) % Lymphocytes # (1.0-4.8) k/uL Sodium (137-145) mmol/L Chloride (98-107) mmol/L BUN (7-17) mg/dL Creatinine (0.52-1.04) mg/dL Glucose (74-99) mg/dL POC Glucose (mg/dL) 126 H 188 H (75-99) mg/dL Procalcitonin 0.22 H (0.02-0.09) ng/mL 03/23/20 03/23/20 03/23/20 Range/Units 06:11 11:34 13:09 RBC (3.80-5.40) m/uL Hgb (11.4-16.0) gm/dL Hct (34.0-46.0) % Lymphocytes # (1.0-4.8) k/uL Sodium 128 L (137-145) mmol/L Chloride 97 L (98-107) mmol/L BUN 54 H (7-17) mg/dL Creatinine 1.66 H (0.52-1.04) mg/dL Glucose 148 H (74-99) mg/dL POC Glucose (mg/dL) 146 H 163 H (75-99) mg/dL Procalcitonin (0.02-0.09) ng/mL 03/23/20 Range/Units 13:09 RBC 3.32 L (3.80-5.40) m/uL Hgb 10.2 L (11.4-16.0) gm/dL Hct 31.6 L (34.0-46.0) % Lymphocytes # 0.8 L (1.0-4.8) k/uL Sodium (137-145) mmol/L Chloride (98-107) mmol/L BUN (7-17) mg/dL Creatinine (0.52-1.04) mg/dL Glucose (74-99) mg/dL POC Glucose (mg/dL) (75-99) mg/dL Procalcitonin (0.02-0.09) ng/mL
--- NOTE | 2020-03-23 14:41 | P.CNPUL ---
History of Present Illness Consult date: 03/23/20 Reason for consult: dyspnea, cough, hypoxemia, pneumonia, abnormal CXR/CT Chief complaint: Shortness of breath History of present illness: This is a 84-year-old female seen evaluated examined overall a poor historian, data mostly obtained from the chart, patient is a resident of the [facility] on chronic home oxygen also on BiPAP support, there are some issues with activity of BiPAP at [facility], she developed progressive shortness of breath and admitted into the hospital, recently she was hospitalized at [facility] she was found to have severe tricuspid regurgitation status post bilateral pleural effusion and thoracentesis, her baseline problems are significant for chronic systolic heart failure type 2 diabetes mellitus hypertension hypertensive cardiovascular disease dyslipidemia she has a 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, on arrival she was very hypoxic with bilateral infiltrate on the x-ray she was treated with broad-spectrum antibiotics currently on vancomycin and Levaquin also on BiPAP 12/5 is 70% oxygen, currently patient is on the 15 L high flow oxygen awake and alert, denies any chest pain does have ongoing shortness of breath, chest x-ray shows bilateral CHF-like changes along with bilateral pneumonia cannot be excluded with basal atelectasis small pleural effusion Review of Systems ROS unobtainable: due to mental status All systems: negative Past Medical History Past Medical History: Coronary Artery Disease (CAD), Heart Failure, COPD, CVA/TIA, Diabetes Mellitus, GERD/Reflux, Hyperlipidemia, Hypertension, Renal Disease, Syncope, Vascular Disorder Additional Past Medical History / Comment(s): Pt recently hospitalized 03/02/20 with CHF, bilateral pleural effusions/bilateral thoracentesis, syncope d/t hypoxia. Other hx: Aortic valve stenosis with replacement, cardiac arrhythmia, IDDM type II, CKD stage III, CVA with dysarthria/R sided weakness, chronic hypoxic respiratory failure, arthritis bilateral hands/feet, poor circulation, constipation History of Any Multi-Drug Resistant Organisms: None Reported Past Surgical History: Cardiac Valve Replacement, Heart Catheterization, Tons illectomy Additional Past Surgical History / Comment(s): PAPITO, aortic valve replacement, colonoscopy Past Anesthesia/Blood Transfusion Reactions: No Reported Reaction Smoking Status: Never smoker - Past Family History Father Family Medical History: Myocardial Infarction (GA) Additional Family Medical History / Comment(s): Father of a GA at the age of 47yrs. Mother Family Medical History: Coronary Artery Disease (CAD) Medications and Allergies Home Medications Medication Instructions Recorded Confirmed Type ALPRAZolam [Xanax] 0.25 mg PO TID PRN 03/22/20 03/22/20 History Acetaminophen Tab [Tylenol] 650 mg PO Q6H PRN 03/22/20 03/22/20 History Aspirin 81 mg PO DAILY 03/22/20 03/22/20 History Atenolol [Tenormin] 100 mg PO DAILY 03/22/20 03/22/20 History Atorvastatin [Lipitor] 20 mg PO HS 03/22/20 03/22/20 History Budesonide [Pulmicort] 0.5 mg INHALATION RT-BID@0600,2100 03/22/20 03/22/20 History Citalopram Hydrobromide [CeleXA] 20 mg PO DAILY 03/22/20 03/22/20 History Clotrimazole/Betamethasone Dip 1 applic TOPICAL BID 03/22/20 03/22/20 History [Lotrisone Cream] Furosemide [Lasix] 20 mg PO BID@0600,1200 03/22/20 03/22/20 History INSULIN LISPRO (humaLOG) [humaLOG] 2 units SQ ACHS 03/22/20 03/22/20 History Ipratropium-Albuterol Nebulize 3 ml INHALATION RT-Q6H PRN 03/22/20 03/22/20 History [Duoneb 0.5 mg-3 mg/3 ml Soln] Isosorbide Mononitrate ER [Imdur] 30 mg PO DAILY 03/22/20 03/22/20 History Linagliptin [Tradjenta] 5 mg PO DAILY 03/22/20 03/22/20 History Melatonin 3 mg PO HS 03/22/20 03/22/20 History Methylphenidate HCl [Ritalin] 20 mg PO BID@0600,1200 03/22/20 03/22/20 History Montelukast Sodium [Singulair] 10 mg PO HS 03/22/20 03/22/20 History Nystatin 100,000 Unit/ml Susp 500,000 units PO QID 03/22/20 03/22/20 History [Mycostatin Oral Susp] Pantoprazole Sodium [Protonix] 40 mg PO DAILY@0600 03/22/20 03/22/20 History Sennosides/Docusate Sodium [Senna 1 tab PO BID@0600,2100 03/22/20 03/22/20 History Plus 8.6-50 mg Tablet] Spironolactone [Aldactone] 25 mg PO DAILY 03/22/20 03/22/20 History amLODIPine [Norvasc] 10 mg PO DAILY 03/22/20 03/22/20 History cloNIDine HCL [Catapres] 0.05 mg PO BID 03/22/20 03/22/20 History diphenhydrAMINE & Zinc Cream 1 applic TOPICAL TID PRN 03/22/20 03/22/20 History [Benadryl Cream] hydrALAZINE HCL [Apresoline] 100 mg PO BID 03/22/20 03/22/20 History Allergies Allergy/AdvReac Type Severity Reaction Status Date / Time codeine Allergy Anaphylaxis Verified 03/22/20 07:39 Penicillins Allergy Anaphylaxis Verified 03/22/20 07:39 Physical Exam Vitals: Vital Signs Temp Pulse Pulse Resp BP Pulse Ox 03/23/20 14:00 17 03/23/20 12:00 98.1 F 65 17 104/47 93 L 03/23/20 11:10 68 03/23/20 10:57 68 03/23/20 09:40 98 F 72 18 127/53 91 L 03/23/20 04:00 98.9 F 74 22 132/54 95 03/22/20 23:39 98.8 F 86 21 123/56 91 L 03/22/20 20:01 60 03/22/20 20:00 100 F H 89 18 134/64 91 L 03/22/20 19:50 60 03/22/20 16:23 60 03/22/20 16:12 60 03/22/20 16:00 100.5 F H 74 152/64 92 L Intake and Output 03/22/20 03/23/20 03/23/20 22:59 06:59 14:59 Intake Total 125 475 Output Total 460 510 Balance -335 -510 475 Intake: Intake, IV Titration 350 Amount Levofloxacin 500Mg-D5w 100 Pmx 500 mg In Dextrose/ Water 1 100ml.bag @ 100 mls/hr IVPB Q48H [facility] Rx#: [id number] Vancomycin 1,250 mg In 250 Sodium Chloride 0.9% 250 ml @ 125 mls/hr IVPB Q24HR [facility] Rx#:[id number] Oral 125 125 Output: Urine 460 510 Other: Voiding Method Indwelling Catheter Indwelling Catheter Indwelling Catheter - Constitutional General appearance: average body habitus, cooperative, disheveled, mild distress - EENT Eyes: PERRLA Ears: bilateral: normal - Neck Neck: normal ROM Carotids: bilateral: upstroke normal - Respiratory Respiratory: bilateral: diminished, rales - Cardiovascular Rhythm: regular Heart sounds: normal: S1, S2 - Gastrointestinal General gastrointestinal: normal bowel sounds, soft - Musculoskeletal Musculoskeletal: gait normal, generalized weakness Results - Laboratory Findings CBC and BMP: 03/23/20 13:09 03/23/20 13:09 Abnormal lab findings: Abnormal Labs 03/22/20 03/22/20 03/22/20 03:48 03:48 03:48 WBC 17.4 H RBC Hgb Hct RDW 15.8 H Neutrophils # 14.1 H Lymphocytes # Sodium 127 L Potassium 5.3 H Chloride 93 L BUN 46 H Creatinine 1.54 H Glucose 292 H POC Glucose (mg/dL) Plasma Lactic Acid Tom 2.2 H* Phosphorus 7.1 H Lactate Dehydrogenase Troponin I C-Reactive Protein Total Protein 6.2 L Procalcitonin 03/22/20 03/22/20 03/22/20 03:48 03:48 03:48 WBC RBC Hgb Hct RDW Neutrophils # Lymphocytes # Sodium Potassium Chloride BUN Creatinine Glucose POC Glucose (mg/dL) Plasma Lactic Acid Tom Phosphorus Lactate Dehydrogenase 862 H Troponin I 0.075 H* C-Reactive Protein 44.8 H Total Protein Procalcitonin 0.22 H 03/22/20 03/22/20 03/23/20 17:02 20:19 06:11 WBC RBC Hgb Hct RDW Neutrophils # Lymphocytes # Sodium Potassium Chloride BUN Creatinine Glucose POC Glucose (mg/dL) 126 H 188 H 146 H Plasma Lactic Acid Tom Phosphorus Lactate Dehydrogenase Troponin I C-Reactive Protein Total Protein Procalcitonin 03/23/20 03/23/20 03/23/20 11:34 13:09 13:09 WBC RBC 3.32 L Hgb 10.2 L Hct 31.6 L RDW Neutrophils # Lymphocytes # 0.8 L Sodium 128 L Potassium Chloride 97 L BUN 54 H Creatinine 1.66 H Glucose 148 H POC Glucose (mg/dL) 163 H Plasma Lactic Acid Tom Phosphorus Lactate Dehydrogenase Troponin I C-Reactive Protein Total Protein Procalcitonin 03/23/20 13:09 WBC RBC Hgb Hct RDW Neutrophils # Lymphocytes # Sodium Potassium Chloride BUN Creatinine Glucose POC Glucose (mg/dL) Plasma Lactic Acid Tom Phosphorus Lactate Dehydrogenase Troponin I 0.091 H* C-Reactive Protein Total Protein Procalcitonin - Diagnostic Findings Chest x-ray: report reviewed, image reviewed (Finding as noted above) Assessment and Plan Assessment: Acute on chronic hypoxic respiratory failure Acute exacerbation of acute on chronic systolic heart failure Pulmonary hypertension and severe tricuspid regurgitation Bilateral pneumonia Acute kidney injury Type 2 diabetes mellitus Dyslipidemia Hypertension hypertensive cardiovascular disease CVA prior with right-sided weakness Plan: Continue high flow oxygen titrated down as tolerated, continue to use BiPAP machine as night time with when necessary during the day Bronchodilators Broad-spectrum antibiotics Gentle diuresis with close monitoring observation off renal functions Long-term prognosis is guarded O follow clinical course closely Time with Patient: Greater than 30
--- NOTE | 2020-03-23 14:47 | ECHOF ---
Referral Reason:CHF MEASUREMENTS -------- HEIGHT: 157.5 cm WEIGHT: 68.5 kg BP: IVSd: 1.3 cm (0.6 - 1.1) LVIDd: 4.4 cm (3.9 - 5.3) LVPWd: 1.3 cm (0.6 - 1.1) IVSs: 1.9 cm LVIDs: 2.8 cm LVPWs: 1.8 cm RVIDd: 2.5 cm (< 3.3) LAESV Index (A-L): 46.30 ml/m Ao Diam: 2.5 cm (2.0 - 3.7) LA Diam: 3.7 cm (2.7 - 3.8) AV Cusp: 1.4 cm (1.5 - 2.6) EPSS: 0.9 cm MV E Sourav: 1.91 m/s MV DecT: 177 ms MV A Sourav: 0.73 m/s MV E/A Ratio: 2.62 AV maxP.20 mmHg AV meanP.53 mmHg AR PHT: 185 ms RAP: 5.00 mmHg RVSP: 63.94 mmHg MV EF SLOPE: 77.98 mm/s (70 - 150) MV EXCURSION: 13.55 mm (> 18.000) FINDINGS -------- This was a technically good study. The left ventricular size is normal. There is mild concentric left ventricular hypertrophy. Overa ll left ventricular systolic function is normal with, an EF between 55 - 60 %. Increased LAP. Grade 3 Diastolic Dysfunction. The right ventricle is normal in size. LA is severely dilated >40 ml/m2 The right atrial size is normal. Aortic valve is trileaflet and is moderately thickened. There is severe aortic regurgitation. The re is moderate aortic stenosis present. Peak/mean gradient across the Aortic Valve is 40.20mmHg / 1 8.53mmHg. The mitral valve leaflets are mildly thickened. Severe mitral regurgitation is present. The peak and mean MV gradients are 16.47mmHg 4.63mmHg as measured by doppler. Cannot rule out vegetation. The tricuspid valve appears structurally normal. Moderate tricuspid regurgitation present. There is moderate to severe pulmonary hypertension. The right ventricular systolic pressure, as measured by Doppler, is 63.94mmHg. There is no pulmonic regurgitation present. The aortic root size is normal. Normal inferior vena cava with normal inspiratory collapse consistent with estimated right atrial pre ssure of 5 mmHg. There is no pericardial effusion. Large Pleural Effusion. CONCLUSIONS -------- 1. The left ventricular size is normal. 2. There is mild concentric left ventricular hypertrophy. 3. Overall left ventricular systolic function is normal with, an EF between 55 - 60 %. 4. Increased LAP. Grade 3 Diastolic Dysfunction. 5. LA is severely dilated >40 ml/m2 6. Aortic valve is trileaflet and is moderately thickened. 7. There is severe aortic regurgitation. 8. There is moderate aortic stenosis present. 9. Peak/mean gradient across the Aortic Valve is 40.20mmHg / 18.53mmHg. 10. The mitral valve leaflets are mildly thickened. 11. Severe mitral regurgitation is present. 12. The peak and mean MV gradients are 16.47mmHg 4.63mmHg as measured by doppler. 13. Cannot rule out vegetation. 14. Moderate tricuspid regurgitation present. 15. There is moderate to severe pulmonary hypertension. 16. The right ventricular systolic pressure, as measured by Doppler, is 63.94mmHg. 17. There is no pericardial effusion. 18. Large Pleural Effusion. [employer]ATION ENGINEER CHIEF: Gabriella Yuen RDCS
--- NOTE | 2020-03-23 15:43 | US ---
EXAMINATION TYPE: US kidneys/renal and bladder DATE OF EXAM: 03/23/2020 COMPARISON: NONE CLINICAL HISTORY: andres. ANDRES EXAM MEASUREMENTS: Right Kidney: 8.6 x 3.5 x 3.7 cm Left Kidney: 8.5 x 4.2 x 3.4 cm Incidental finding gallstones with thickened wall 5 mm/ CBD is wnl. Right Kidney: No hydronephrosis of masses seen Left Kidney: No hydronephrosis or masses seen Bladder: Catheter in Bilateral Jets seen: No Note is made of gallbladder wall thickening at 0.54 cm and cholelithiasis. Consider additional workup for cholecystitis. IMPRESSION: 1. Normal renal ultrasound. 2. Consider workup for acute cholecystitis
--- NOTE | 2020-03-23 15:55 | P.PN ---
Subjective Progress Note Date: 03/23/20 This is an 84-year-old female patient of Dr. Valente with past medical history of coronary artery disease, aortic valve stenosis status post replacement, chronic systolic heart failure, diabetes mellitus type 2, hypertension, hyperlipidemia, CVA with dysarthria and right-sided weakness, chronic hypoxic respiratory failure on home O2, chronic kidney disease stage III, generalized anxiety disorder. Patient was recently seen at [facility] which time she was treated for pleural effusions status post bilateral thoracentesis. Patient is known to have severe tricuspid regurgitati on. Patient was recently started on methylphenidate 20 mg twice daily. She went to [facility] but had a panic attack and returned [facility] within [facility] hours. Also [facility] did not have BiPAP which she required. She was stabilized and then discharged back to [facility]. Patient was then doing well until yesterday when she developed increasing shortness of breath. He also had increasing lower extremity edema. Denies having any chest pain. No lightheadedness or dizziness. Patient presented to [facility] emergency center for evaluation. EKG was sinus rhythm without acute ST changes. Chest x-ray showed bilateral infiltrates with component of pulmonary edema. ProBNP 60885. Lactic acid 2.2 with repeat of 1.3. Sodium 127, potassium 5.3, chloride 93, CO2 23, BUN 46 and creatinine 1.54. Blood sugar 292. Phosphorus 7.1, magnesium 2.0. LDH 862. Troponin 0.075. C-reactive protein 44.8. Coronavirus PCR not detected. Patient has been started on IV Lasix 40 mg twice daily, consults requested with pulmonary medicine, cardiology and nephrology. 03/23 patient examined bedside. Continues to be on 15 L of nasal cannula high flow. Chest x-ray repeated today shows mild atelectasis with bilateral infiltrate concerning for pneumonia with pulmonary edema. Cardiology evaluated the patient and recommended echocardiogram currently pending. We'll continue with Lasix 40 mg IV twice a day. Continue antibiotics including vancomycin and levofloxacin. Mycoplasma and Legionella ordered. Chest x-ray shows only small pleural effusion of benefit for thoracentesis at this point. Continue albuterol and Pulmicort. REVIEW OF SYSTEMS Constitutional: No fever, no chills, no night sweats. No weight change. Reports weakness, reports fatigue. No daytime sleepiness. EENT: No headache. No blurred vision or double vision, no loss of vision. No loss of Hearing, no ringing in the ears, no dizziness. No nasal drainage or congestion. No epistaxis. No sore throat. Lungs: Reports shortness of breath, cough, no sputum production. No wheezing. Cardiovascular: No chest pain, reports lower extremity edema. No palpitations. No paroxysmal nocturnal dyspnea. No orthopnea. No lightheadedness or dizziness. No syncopal episodes. Abdominal: No abdominal pain. No nausea, vomiting. No diarrhea. No constipation. No bloody or tarry stools reports loss of appetite. Genitourinary: No dysuria, increased frequency, urgency. No urinary retention. Musculoskeletal: No myalgias. No muscle weakness, no gait dysfunction, no frequent falls. No back pain. No neck pain. Integumentary: No wounds, no lesions. No rash or pruritus. No unusual bruising. No change in hair or nails. Neurologic: No aphasia. No facial droop. No change in mentation. No head injury. No headache. No paralysis. No paresthesia. Psychiatric: No depression. No anxiety. No mood swings. Endocrine: No abnormal blood sugars. No weight change. No excessive sweating or thirst. No cold intolerance. Objective - Vital Signs Vital signs: Vital Signs Temp 98.1 F 03/23/20 12:00 Pulse 65 03/23/20 12:00 Resp 17 03/23/20 14:00 BP 104/47 03/23/20 12:00 Pulse Ox 93 L 03/23/20 12:00 Intake & Output 03/22/20 03/23/20 03/23/20 18:59 06:59 18:59 Intake Total 125 475 Output Total 970 Balance 125 -970 475 Weight 68.9 kg Intake: Intake, IV Titration 350 Amount Levofloxacin 500Mg-D5w 100 Pmx 500 mg In Dextrose/ Water 1 100ml.bag @ 100 mls/hr IVPB Q48H [facility] Rx#: [id number] Vancomycin 1,250 mg In 250 Sodium Chloride 0.9% 250 ml @ 125 mls/hr IVPB Q24HR [facility] Rx#:[id number] Oral 125 125 Output: Urine 970 Other: Voiding Method Indwelling Catheter Indwelling Catheter - Exam PHYSICAL EXAMINATION Gen: This is an 84-year-old female. Appears drowsy HEENT: Head is atraumatic, normocephalic. Pupils equal, round. Sclerae is anicteric. Patient is on BiPAP. NECK: Supple. No JVD. No lymphadenopathy. No thyromegaly. LUNGS: Decreased air entry bilaterally. No wheezes or rhonchi. Mild to moderate intercostal retractions. HEART: Regular rate and rhythm. Systolic murmur. ABDOMEN: Soft. Bowel sounds are present. No masses. No tenderness. EXTREMITIES: 1+ bilateral pedal edema. No calf tenderness. NEUROLOGICAL: Patient is awake, alert and oriented x3. Cranial nerves 2 through 12 are grossly intact - Labs CBC & Chem 7: 03/23/20 13:09 03/23/20 13:09 Labs: Abnormal Lab Results - Last 24 Hours (Table) 03/22/20 03/22/20 03/22/20 Range/Units 03:48 17:02 20:19 RBC (3.80-5.40) m/uL Hgb (11.4-16.0) gm/dL Hct (34.0-46.0) % Lymphocytes # (1.0-4.8) k/uL Sodium (137-145) mmol/L Chloride (98-107) mmol/L BUN (7-17) mg/dL Creatinine (0.52-1.04) mg/dL Glucose (74-99) mg/dL POC Glucose (mg/dL) 126 H 188 H (75-99) mg/dL Troponin I (0.000-0.034) ng/mL Procalcitonin 0.22 H (0.02-0.09) ng/mL 03/23/20 03/23/20 03/23/20 Range/Units 06:11 11:34 13:09 RBC (3.80-5.40) m/uL Hgb (11.4-16.0) gm/dL Hct (34.0-46.0) % Lymphocytes # (1.0-4.8) k/uL Sodium 128 L (137-145) mmol/L Chloride 97 L (98-107) mmol/L BUN 54 H (7-17) mg/dL Creatinine 1.66 H (0.52-1.04) mg/dL Glucose 148 H (74-99) mg/dL POC Glucose (mg/dL) 146 H 163 H (75-99) mg/dL Troponin I (0.000-0.034) ng/mL Procalcitonin (0.02-0.09) ng/mL 03/23/20 03/23/20 Range/Units 13:09 13:09 RBC 3.32 L (3.80-5.40) m/uL Hgb 10.2 L (11.4-16.0) gm/dL Hct 31.6 L (34.0-46.0) % Lymphocytes # 0.8 L (1.0-4.8) k/uL Sodium (137-145) mmol/L Chloride (98-107) mmol/L BUN (7-17) mg/dL Creatinine (0.52-1.04) mg/dL Glucose (74-99) mg/dL POC Glucose (mg/dL) (75-99) mg/dL Troponin I 0.091 H* (0.000-0.034) ng/mL Procalcitonin (0.02-0.09) ng/mL Assessment and Plan Plan: ASSESSMENT AND PLAN 1. Acute on chronic hypoxic respiratory failure requiring BiPAP. Consult pulmonary medicine. Continue oxygen therapy with BiPAP. Continue DuoNeb treatments 4 times daily and as needed, Pulmicort 0.5 mg twice daily and repeat chest x-ray suggestive of bibasilar pneumonia and finding of CHF with minimal pleural effusions. Pro-calcitonin mildly elevated, sputum culture. 2. Acute on chronic heart failure, possible diastolic Echocardiogram ordered. Patient started on Lasix 40 mg IV twice daily, cardiology consult, monitor I&O and daily weights, monitor electrolytes and renal function. 3. Acute kidney injury with chronic kidney disease stage III. Consult with nephrology added. 4. Hypovolemic Hyponatremia. Low-salt diet with 1200 fluid restrictions 5. Diabetes mellitus type 2, uncontrolled with hyperglycemia. Continue insulin sliding scale 6. Hypertension. Continue amlodipine 10 mg daily, atenolol 100 mg daily, Catapres 0.05 mg twice daily, hydralazine 100 mg twice daily. 7. Hyperlipidemia. Continue Lipitor 20 mg at bedtime 8. History of CVA with right-sided weakness. Continue aspirin 81 mg daily, Lipitor 20 mg at bedtime for secondary prevention 9. History of coronary artery disease. Continue Imdur 30 mg daily. 10. Generalized anxiety disorder. Xanax on hold. Lorazepam 0.5 mg every 8 hours as needed for anxiety 11. GI prophylaxis. Protonix. 12. DVT prophylaxis. Heparin subcu. CODE STATUS: No code
[2020-03-23 17:08] LABS: Glucose,Whole Blood 135 mg/dL (75-99)
[2020-03-23 19:36] LABS: Appearance,Urine Clear (Clear); Bacteria,Urine Rare /hpf; Bilirubin,Urine Negative (Negative); Blood,Urine Negative (Negative); Color,Urine Yellow; Glucose,Urine (UA) Negative (Negative); Hyaline Casts,Urine 4 /lpf (0-2); Ketones,Urine Negative (Negative); Leukocyte Esterase,Urine Small (Negative); Mucus,Urine Rare /hpf; Nitrite,Urine Negative (Negative); Protein,Urine Negative (Negative); RBC,Urine 2 /hpf (0-5); Squamous Epithelial Cell,Urine <1 /hpf (0-4); Urobilinogen,Urine <2.0 mg/dL (<2.0); WBC,Urine 6 /hpf (0-5)
[2020-03-23] MEDS: ATORVASTATIN 20 MG TAB PO SCH (20:12)
[2020-03-23 20:40] LABS: Glucose,Whole Blood 162 mg/dL (75-99)
[2020-03-23] MEDS: LORazepam 2 MG/ML INJ IV PRN (23:56)
[2020-03-24 06:11] LABS: Glucose,Whole Blood 125 mg/dL (75-99)
[2020-03-24] MEDS: SENNOSIDES-DOCUSATE SODIUM 1 EACH TAB PO SCH ×2 (06:27→21:14)
[2020-03-24] MEDS: PANTOPRAZOLE 40 MG TABLET PO SCH (06:27)
[2020-03-24 08:29] LABS: Calcium 8.6 mg/dL (8.4-10.2); Magnesium 2.1 mg/dL (1.6-2.3); Potassium 4.8 mmol/L (3.5-5.1)
[2020-03-24] MEDS: IPRATROPIUM-ALBUTEROL 3 ML NEB INHALATION SCH ×4 (08:40→20:02)
[2020-03-24] MEDS: BUDESONIDE 0.5 MG/2 ML NEBU INHALATION SCH ×2 (08:40→20:02)
[2020-03-24] MEDS: HEPARIN SODIUM,PORCINE 5,000 UNIT/ML 1 ML VIAL SQ SCH ×2 (10:00→21:14)
[2020-03-24] MEDS: CITALOPRAM HYDROBROMIDE 20 MG TAB PO SCH (10:00)
[2020-03-24] MEDS: cloNIDine HCL 0.1 MG TAB PO SCH ×2 (10:00→21:14)
[2020-03-24] MEDS: atenoloL 50 MG TAB PO SCH (10:00)
[2020-03-24] MEDS: ASPIRIN 81 MG PO SCH (10:00)
[2020-03-24] MEDS: VANCOMYCIN 1,250 MG in SODIUM CHLORIDE 0.9% 250 ML IVPB SCH (10:01)
[2020-03-24] MEDS: NYSTATIN 100,000 UNIT/ML SUSP 500,000 UNIT/5 ML CUP PO SCH ×4 (10:01→21:13)
[2020-03-24] MEDS: hydrALAZINE HCL 50 MG TAB PO SCH ×3 (10:01→21:14)
[2020-03-24] MEDS: FUROSEMIDE 10 MG/ML 4 ML VIAL IV SCH (10:01)
[2020-03-24] MEDS: ISOSORBIDE MONONITRATE ER 30 MG TAB.ER.24H PO SCH (10:01)
[2020-03-24] MEDS: CLOTRIMAZOLE/BETAMETH 1-0.05% CREAM 45 GM TUBE TOPICAL SCH ×2 (10:02→21:14)
--- NOTE | 2020-03-24 10:02 | P.PN ---
Subjective Patient is seen in follow-up for acute kidney injury. She is currently on BiPAP. Renal function worsened from diuresis. Creatinine 1.82 today. Blood pressure stable. Urine output 975 mL overnight. Vital signs are stable. General: The patient appeared well nourished and normally developed. HEENT: Currently on BiPAP. LUNGS: Breath sounds decreased. HEART: Rate and Rhythm are regular. ABDOMEN: Soft, nontender. EXTREMITITES: Trace edema. Objective - Vital Signs Vital signs: Vital Signs Temp 98.7 F 03/24/20 08:00 Pulse 60 03/24/20 08:57 Resp 21 03/24/20 08:00 BP 120/45 03/24/20 09:48 Pulse Ox 97 03/24/20 09:48 Intake & Output 03/23/20 03/24/20 03/24/20 18:59 06:59 18:59 Intake Total 836 Output Total 975 Balance 836 -975 Intake: Intake, IV Titration 350 Amount Levofloxacin 500Mg-D5w 100 Pmx 500 mg In Dextrose/ Water 1 100ml.bag @ 100 mls/hr IVPB Q48H [facility] Rx#: [id number] Vancomycin 1,250 mg In 250 Sodium Chloride 0.9% 250 ml @ 125 mls/hr IVPB Q24HR [facility] Rx#:[id number] Oral 486 Output: Urine 975 Other: Voiding Method Indwelling Catheter Indwelling Catheter - Labs CBC & Chem 7: 03/23/20 13:09 03/24/20 07:29 Labs: Abnormal Lab Results - Last 24 Hours (Table) 03/22/20 03/23/20 03/23/20 Range/Units 03:48 11:34 13:09 RBC (3.80-5.40) m/uL Hgb (11.4-16.0) gm/dL Hct (34.0-46.0) % Lymphocytes # (1.0-4.8) k/uL Sodium 128 L (137-145) mmol/L Chloride 97 L (98-107) mmol/L BUN 54 H (7-17) mg/dL Creatinine 1.66 H (0.52-1.04) mg/dL Glucose 148 H (74-99) mg/dL POC Glucose (mg/dL) 163 H (75-99) mg/dL Troponin I (0.000-0.034) ng/mL Procalcitonin 0.22 H (0.02-0.09) ng/mL Ur Leukocyte Esterase (Negative) Urine WBC (0-5) /hpf Urine Bacteria (None) /hpf Hyaline Casts (0-2) /lpf Urine Mucus (None) /hpf 03/23/20 03/23/20 03/23/20 Range/Units 13:09 13:09 16:03 RBC 3.32 L (3.80-5.40) m/uL Hgb 10.2 L (11.4-16.0) gm/dL Hct 31.6 L (34.0-46.0) % Lymphocytes # 0.8 L (1.0-4.8) k/uL Sodium (137-145) mmol/L Chloride (98-107) mmol/L BUN (7-17) mg/dL Creatinine (0.52-1.04) mg/dL Glucose (74-99) mg/dL POC Glucose (mg/dL) (75-99) mg/dL Troponin I 0.091 H* 0.088 H* (0.000-0.034) ng/mL Procalcitonin (0.02-0.09) ng/mL Ur Leukocyte Esterase (Negative) Urine WBC (0-5) /hpf Urine Bacteria (None) /hpf Hyaline Casts (0-2) /lpf Urine Mucus (None) /hpf 03/23/20 03/23/20 03/23/20 Range/Units 17:00 17:01 20:38 RBC (3.80-5.40) m/uL Hgb (11.4-16.0) gm/dL Hct (34.0-46.0) % Lymphocytes # (1.0-4.8) k/uL Sodium (137-145) mmol/L Chloride (98-107) mmol/L BUN (7-17) mg/dL Creatinine (0.52-1.04) mg/dL Glucose (74-99) mg/dL POC Glucose (mg/dL) 135 H 162 H (75-99) mg/dL Troponin I (0.000-0.034) ng/mL Procalcitonin (0.02-0.09) ng/mL Ur Leukocyte Esterase Small H (Negative) Urine WBC 6 H (0-5) /hpf Urine Bacteria Rare H (None) /hpf Hyaline Casts 4 H (0-2) /lpf Urine Mucus Rare H (None) /hpf 03/24/20 03/24/20 Range/Units 06:09 07:29 RBC (3.80-5.40) m/uL Hgb (11.4-16.0) gm/dL Hct (34.0-46.0) % Lymphocytes # (1.0-4.8) k/uL Sodium 130 L (137-145) mmol/L Chloride (98-107) mmol/L BUN 56 H (7-17) mg/dL Creatinine 1.82 H (0.52-1.04) mg/dL Glucose 119 H (74-99) mg/dL POC Glucose (mg/dL) 125 H (75-99) mg/dL Troponin I (0.000-0.034) ng/mL Procalcitonin (0.02-0.09) ng/mL Ur Leukocyte Esterase (Negative) Urine WBC (0-5) /hpf Urine Bacteria (None) /hpf Hyaline Casts (0-2) /lpf Urine Mucus (None) /hpf Assessment and Plan Plan: Assessment: 1. Acute kidney injury versus chronic kidney disease. No prior records availab le. Renal function worse from diuresis. Creatinine 1.82 today. UA benign. No hydronephrosis noted on kidney ultrasound. Both kidneys are small in size. 2. Hypervolemic hyponatremia. Improving with diuresis. 3. Acute diastolic CHF with severe aortic regurgitation, moderate aortic stenosis, severe mitral regurgitation, moderate tricuspid regurgitation and moderate to severe pulmonary hypertension. 4. Fluid overload. 5. Diabetes mellitus. 6. Acute hypoxic respiratory failure. 7. Hypertension with chronic kidney disease. Controlled. 8. Pneumonia maintained on antibiotics. Plan: Stop IV push Lasix. Start Lasix drip at 10 mL an hour. Low-salt diet and 1200 mL fluid restriction. Strict is and os. Repeat electrolytes in the morning. Hold hydralazine for systolic blood pressure less than 120. Wean FiO2. Monitor vancomycin levels. Dose to be adjusted for renal function.
[2020-03-24] MEDS: amLODIPine 5 MG TAB PO SCH (10:07)
[2020-03-24] MEDS: amLODIPine 10 MG TAB PO SCH (10:26)
[2020-03-24] MEDS: FUROSEMIDE 100 MG in SODIUM CHLORIDE 0.9% 90 ML IV SCH ×2 (10:43→19:10)
--- NOTE | 2020-03-24 10:56 | P.PN ---
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 03/24/2020, patient seen eval reexamined, she has been on BiPAP overnight 01/09 with 80% oxygen switched to high flow oxygen 15 L oxygen saturations 94% she feels better today she is being diuresed renal service has recommended to start Lasix strip, patient remains on the IV antibiotics along with bronchodilator, we'll start some steroids as well This is a 84-year-old female seen evaluated examined overall a poor historian, data mostly obtained from the chart, patient is a resident of the [facility] on chronic home oxygen also on BiPAP support, there are some issues with activity of BiPAP at [facility], she developed progressive shortness of breath and admitted into the hospital, recently she was hospitalized at [facility] she was found to have severe tricuspid regurgitation status post bilateral pleural effusion and thoracentesis, her baseline problems are significant for chronic systolic heart failure type 2 diabetes mellitus hypertension hypertensive cardiovascular disease dyslipidemia she has a 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, on arrival she was very hypoxic with bilateral infiltrate on the x-ray she was treated with broad-spectrum antibiotics currently on vancomycin and Levaquin also on BiPAP 01/09 is 70% oxygen, currently patient is on the 15 L high flow oxygen awake and alert, denies any chest pain does have ongoing shortness of breath, chest x-ray shows bilateral CHF-like changes along with bilateral pneumonia cannot be excluded with basal atelectasis small pleural effusion Objective - Vital Signs Vital signs: Vital Signs Temp 98.7 F 03/24/20 08:00 Pulse 60 03/24/20 08:57 Resp 21 03/24/20 08:00 BP 120/45 03/24/20 09:48 Pulse Ox 93 L 03/24/20 10:21 Intake & Output 03/23/20 03/24/20 03/24/20 18:59 06:59 18:59 Intake Total 836 Output Total 975 Balance 836 -975 Intake: Intake, IV Titration 350 Amount Levofloxacin 500Mg-D5w 100 Pmx 500 mg In Dextrose/ Water 1 100ml.bag @ 100 mls/hr IVPB Q48H [facility] Rx#: [id number] Vancomycin 1,250 mg In 250 Sodium Chloride 0.9% 250 ml @ 125 mls/hr IVPB Q24HR [facility] Rx#:[id number] Oral 486 Output: Urine 975 Other: Voiding Method Indwelling Catheter Indwelling Catheter - Exam - Constitutional General appearance: average body habitus, cooperative, disheveled, mild distress - EENT Eyes: PERRLA Ears: bilateral: normal - Neck Neck: normal ROM Carotids: bilateral: upstroke normal - Respiratory Respiratory: bilateral: diminished, rales - Cardiovascular Rhythm: regular Heart sounds: normal: S1, S2 - Gastrointestinal General gastrointestinal: normal bowel sounds, soft - Musculoskeletal Musculoskeletal: gait normal, generalized weakness - Labs CBC & Chem 7: 03/23/20 13:09 03/24/20 07:29 Labs: Abnormal Lab Results - Last 24 Hours (Table) 03/22/20 03/23/20 03/23/20 Range/Units 03:48 11:34 13:09 RBC (3.80-5.40) m/uL Hgb (11.4-16.0) gm/dL Hct (34.0-46.0) % Lymphocytes # (1.0-4.8) k/uL Sodium 128 L (137-145) mmol/L Chloride 97 L (98-107) mmol/L BUN 54 H (7-17) mg/dL Creatinine 1.66 H (0.52-1.04) mg/dL Glucose 148 H (74-99) mg/dL POC Glucose (mg/dL) 163 H (75-99) mg/dL Troponin I (0.000-0.034) ng/mL Procalcitonin 0.22 H (0.02-0.09) ng/mL Ur Leukocyte Esterase (Negative) Urine WBC (0-5) /hpf Urine Bacteria (None) /hpf Hyaline Casts (0-2) /lpf Urine Mucus (None) /hpf 03/23/20 03/23/20 03/23/20 Range/Units 13:09 13:09 16:03 RBC 3.32 L (3.80-5.40) m/uL Hgb 10.2 L (11.4-16.0) gm/dL Hct 31.6 L (34.0-46.0) % Lymphocytes # 0.8 L (1.0-4.8) k/uL Sodium (137-145) mmol/L Chloride (98-107) mmol/L BUN (7-17) mg/dL Creatinine (0.52-1.04) mg/dL Glucose (74-99) mg/dL POC Glucose (mg/dL) (75-99) mg/dL Troponin I 0.091 H* 0.088 H* (0.000-0.034) ng/mL Procalcitonin (0.02-0.09) ng/mL Ur Leukocyte Esterase (Negative) Urine WBC (0-5) /hpf Urine Bacteria (None) /hpf Hyaline Casts (0-2) /lpf Urine Mucus (None) /hpf 03/23/20 03/23/20 03/23/20 Range/Units 17:00 17:01 20:38 RBC (3.80-5.40) m/uL Hgb (11.4-16.0) gm/dL Hct (34.0-46.0) % Lymphocytes # (1.0-4.8) k/uL Sodium (137-145) mmol/L Chloride (98-107) mmol/L BUN (7-17) mg/dL Creatinine (0.52-1.04) mg/dL Glucose (74-99) mg/dL POC Glucose (mg/dL) 135 H 162 H (75-99) mg/dL Troponin I (0.000-0.034) ng/mL Procalcitonin (0.02-0.09) ng/mL Ur Leukocyte Esterase Small H (Negative) Urine WBC 6 H (0-5) /hpf Urine Bacteria Rare H (None) /hpf Hyaline Casts 4 H (0-2) /lpf Urine Mucus Rare H (None) /hpf 03/24/20 03/24/20 Range/Units 06:09 07:29 RBC (3.80-5.40) m/uL Hgb (11.4-16.0) gm/dL Hct (34.0-46.0) % Lymphocytes # (1.0-4.8) k/uL Sodium 130 L (137-145) mmol/L Chloride (98-107) mmol/L BUN 56 H (7-17) mg/dL Creatinine 1.82 H (0.52-1.04) mg/dL Glucose 119 H (74-99) mg/dL POC Glucose (mg/dL) 125 H (75-99) mg/dL Troponin I (0.000-0.034) ng/mL Procalcitonin (0.02-0.09) ng/mL Ur Leukocyte Esterase (Negative) Urine WBC (0-5) /hpf Urine Bacteria (None) /hpf Hyaline Casts (0-2) /lpf Urine Mucus (None) /hpf Assessment and Plan Assessment: Acute on chronic hypoxic respiratory failure Acute exacerbation of acute on chronic systolic heart failure Pulmonary hypertension and severe tricuspid regurgitation Bilateral pneumonia COPD with acute exacerbation Acute kidney injury Type 2 diabetes mellitus Dyslipidemia Hypertension 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
[2020-03-24 11:49] LABS: Glucose,Whole Blood 168 mg/dL (75-99)
[2020-03-24] MEDS: methylPREDNISolone SOD SUCCI 40 MG/ML 1 ML VIAL IV SCH ×2 (12:21→21:13)
--- NOTE | 2020-03-24 13:40 | P.PN ---
Subjective Progress Note Date: 03/24/20 Principal diagnosis: Valvular heart disease This is an 84-year-old female patient who was admitted to the hospital with increasing shortness of breath and she was diagnosed with acute exacerbation of heart failure secondary to diastole dysfunction with possible underlying pneumo sanjuana. The patient was seen today. She is feeling slightly better intermittent shortness of breath. No symptoms of chest pain or chest discomfort. The creatinine is a slightly worse and because of that the Lasix was stopped by the nephrology service. Hemodynamically she is a stable. An echogram was performed and reveals normal LV function with evidence of severe aortic regurgitation and severe mitral regurgitation and moderate tricuspid regurgitation. Objective - Vital Signs Vital signs: Vital Signs Temp 97.8 F 03/24/20 12:00 Pulse 60 03/24/20 12:53 Resp 20 03/24/20 12:00 BP 107/43 03/24/20 12:00 Pulse Ox 91 L 03/24/20 12:00 Intake & Output 03/23/20 03/24/20 03/24/20 18:59 06:59 18:59 Intake Total 836 237 Output Total 975 Balance 836 -975 237 Intake: Intake, IV Titration 350 Amount Levofloxacin 500Mg-D5w 100 Pmx 500 mg In Dextrose/ Water 1 100ml.bag @ 100 mls/hr IVPB Q48H [facility] Rx#: [id number] Vancomycin 1,250 mg In 250 Sodium Chloride 0.9% 250 ml @ 125 mls/hr IVPB Q24HR [facility] Rx#:[id number] Oral 486 237 Output: Urine 975 Other: Voiding Method Indwelling Catheter Indwelling Catheter Indwelling Catheter - Constitutional General appearance: Present: no acute distress - Respiratory Respiratory: bilateral: diminished - Cardiovascular Heart sounds: normal: S1, S2 Abnormal Heart Sounds: Present: systolic murmur - Labs CBC & Chem 7: 03/23/20 13:09 03/24/20 07:29 Labs: Abnormal Lab Results - Last 24 Hours (Table) 03/23/20 03/23/20 03/23/20 Range/Units 13:09 13:09 13:09 RBC 3.32 L (3.80-5.40) m/uL Hgb 10.2 L (11.4-16.0) gm/dL Hct 31.6 L (34.0-46.0) % Lymphocytes # 0.8 L (1.0-4.8) k/uL D-Dimer (<0.60) mg/L FEU Sodium 128 L (137-145) mmol/L Chloride 97 L (98-107) mmol/L BUN 54 H (7-17) mg/dL Creatinine 1.66 H (0.52-1.04) mg/dL Glucose 148 H (74-99) mg/dL POC Glucose (mg/dL) (75-99) mg/dL Troponin I 0.091 H* (0.000-0.034) ng/mL Ur Leukocyte Esterase (Negative) Urine WBC (0-5) /hpf Urine Bacteria (None) /hpf Hyaline Casts (0-2) /lpf Urine Mucus (None) /hpf 03/23/20 03/23/20 03/23/20 Range/Units 16:03 17:00 17:01 RBC (3.80-5.40) m/uL Hgb (11.4-16.0) gm/dL Hct (34.0-46.0) % Lymphocytes # (1.0-4.8) k/uL D-Dimer (<0.60) mg/L FEU Sodium (137-145) mmol/L Chloride (98-107) mmol/L BUN (7-17) mg/dL Creatinine (0.52-1.04) mg/dL Glucose (74-99) mg/dL POC Glucose (mg/dL) 135 H (75-99) mg/dL Troponin I 0.088 H* (0.000-0.034) ng/mL Ur Leukocyte Esterase Small H (Negative) Urine WBC 6 H (0-5) /hpf Urine Bacteria Rare H (None) /hpf Hyaline Casts 4 H (0-2) /lpf Urine Mucus Rare H (None) /hpf 03/23/20 03/24/20 03/24/20 Range/Units 20:38 06:09 07:29 RBC (3.80-5.40) m/uL Hgb (11.4-16.0) gm/dL Hct (34.0-46.0) % Lymphocytes # (1.0-4.8) k/uL D-Dimer (<0.60) mg/L FEU Sodium 130 L (137-145) mmol/L Chloride (98-107) mmol/L BUN 56 H (7-17) mg/dL Creatinine 1.82 H (0.52-1.04) mg/dL Glucose 119 H (74-99) mg/dL POC Glucose (mg/dL) 162 H 125 H (75-99) mg/dL Troponin I (0.000-0.034) ng/mL Ur Leukocyte Esterase (Negative) Urine WBC (0-5) /hpf Urine Bacteria (None) /hpf Hyaline Casts (0-2) /lpf Urine Mucus (None) /hpf 03/24/20 03/24/20 Range/Units 10:03 11:48 RBC (3.80-5.40) m/uL Hgb (11.4-16.0) gm/dL Hct (34.0-46.0) % Lymphocytes # (1.0-4.8) k/uL D-Dimer 4.73 H (<0.60) mg/L FEU Sodium (137-145) mmol/L Chloride (98-107) mmol/L BUN (7-17) mg/dL Creatinine (0.52-1.04) mg/dL Glucose (74-99) mg/dL POC Glucose (mg/dL) 168 H (75-99) mg/dL Troponin I (0.000-0.034) ng/mL Ur Leukocyte Esterase (Negative) Urine WBC (0-5) /hpf Urine Bacteria (None) /hpf Hyaline Casts (0-2) /lpf Urine Mucus (None) /hpf Assessment and Plan Assessment: Assessment #1 shortness of breath multifocal corneal #2 heart failure exacerbation secondary to heart failure with preserved ejection fraction #3 valvular heart disease as described above #4 acute on chronic renal failure #5 multiple comorbid conditions Plan #1 the Lasix IV was stopped by the nephrology service #2 continue monitor the kidney function and electrolytes #3 the patient remains hemodynamically stable #4 follow-up with the patient
--- NOTE | 2020-03-24 14:47 | P.PN ---
Subjective Progress Note Date: 03/24/20 This is an 84-year-old female patient of Dr. Valente with past medical history of coronary artery disease, aortic valve stenosis status post replacement, chronic systolic heart failure, diabetes mellitus type 2, hypertension, hyperlipidemia, CVA with dysarthria and right-sided weakness, chronic hypoxic respiratory failure on home O2, chronic kidney disease stage III, generalized anxiety disorder. Patient was recently seen at [facility] which time she was treated for pleural effusions status post bilateral thoracentesis. Patient is known to have severe tricuspid regurgitati on. Patient was recently started on methylphenidate 20 mg twice daily. She went to [facility] but had a panic attack and returned [facility] within [facility]. Also [facility] did not have BiPAP which she required. She was stabilized and then discharged back to [facility]. Patient was then doing well until yesterday when she developed increasing shortness of breath. He also had increasing lower extremity edema. Denies having any chest pain. No lightheadedness or dizziness. Patient presented to [facility] emergency center for evaluation. EKG was sinus rhythm without acute ST changes. Chest x-ray showed bilateral infiltrates with component of pulmonary edema. ProBNP 78458. Lactic acid 2.2 with repeat of 1.3. Sodium 127, potassium 5.3, chloride 93, CO2 23, BUN 46 and creatinine 1.54. Blood sugar 292. Phosphorus 7.1, magnesium 2.0. LDH 862. Troponin 0.075. C-reactive protein 44.8. Coronavirus PCR not detected. Patient has been started on IV Lasix 40 mg twice daily, consults requested with pulmonary medicine, cardiology and nephrology. 03/23 patient examined bedside. Continues to be on 15 L of nasal cannula high flow. Chest x-ray repeated today shows mild atelectasis with bilateral infiltrate concerning for pneumonia with pulmonary edema. Cardiology evaluated the patient and recommended echocardiogram currently pending. We'll continue with Lasix 40 mg IV twice a day. Continue antibiotics including vancomycin and levofloxacin. Mycoplasma and Legionella ordered. Chest x-ray shows only small pleural effusion of benefit for thoracentesis at this point. Continue albuterol and Pulmicort. 03/24: Sugar readings have been on the low side and Norvasc decreased to 5 mg and hydralazine to 50. Patient is still on BiPAP at 80% with pulse ox of 97%. She is followed by Dr. Mon. She does have episodes where her respirations are 30 or more. Renal ultrasound was normal. There is note to consider acute cholecystitis. Echocardiogram reveals EF of 55-60%, mild concentric left ventricular hypertrophy, severe aortic regurgitation, moderate aortic stenosis, severe mitral regurgitation, moderate tricuspid regurgitation, moderate to severe pulmonary hypertension. His been afebrile, heart rate in the 60s. Nephrology. IV Lasix and started patient on Lasix drip. She is on a low-salt diet with 1200 mL fluid restriction. REVIEW OF SYSTEMS Constitutional: No fever, no chills, no night sweats. No weight change. Reports weakness, reports fatigue. No daytime sleepiness. EENT: No headache. No blurred vision or double vision, no loss of vision. No loss of Hearing, no ringing in the ears, no dizziness. No nasal drainage or congestion. No epistaxis. No sore throat. Lungs: Reports shortness of breath, reports cough, no sputum production. No wheezing. Cardiovascular: No chest pain, reports lower extremity edema. No palpitations. No paroxysmal nocturnal dyspnea. No orthopnea. No lightheadedness or dizziness. No syncopal episodes. Abdominal: No abdominal pain. No nausea, vomiting. No diarrhea. No constipation. No bloody or tarry stools reports loss of appetite. Genitourinary: No dysuria, increased frequency, urgency. No urinary retention. Musculoskeletal: No myalgias. No muscle weakness, no gait dysfunction, no frequent falls. No back pain. No neck pain. Integumentary: No wounds, no lesions. No rash or pruritus. No unusual bruising. No change in hair or nails. Neurologic: No aphasia. No facial droop. No change in mentation. No head injury. No headache. No paralysis. No paresthesia. Psychiatric: No depression. No anxiety. No mood swings. Endocrine: No abnormal blood sugars. No weight change. No excessive sweating or thirst. No cold intolerance. PHYSICAL EXAMINATION Gen: This is an 84-year-old female. Appears drowsy HEENT: Head is atraumatic, normocephalic. Pupils equal, round. Sclerae is anicteric. Patient is on BiPAP. NECK: Supple. No JVD. No lymphadenopathy. No thyromegaly. LUNGS: Decreased air entry bilaterally. No wheezes or rhonchi. Mild to moderate intercostal retractions. HEART: Regular rate and rhythm. Systolic murmur. ABDOMEN: Soft. Bowel sounds are present. No masses. No tenderness. EXTREMITIES: 1+ bilateral pedal edema. No calf tenderness. NEUROLOGICAL: Patient is awake, alert and oriented x3. Cranial nerves 2 through 12 are grossly intact ASSESSMENT AND PLAN 1. Acute on chronic hypoxic respiratory failure requiring BiPAP. Consult pulmonary medicine appreciated. Continue oxygen therapy with BiPAP. Continue DuoNeb treatments 4 times daily and as needed, Pulmicort 0.5 mg twice daily and repeat chest x-ray suggestive of bibasilar pneumonia and finding of CHF with minimal pleural effusions. Pro-calcitonin mildly elevated, sputum culture. 2. Acute on chronic heart failure, possible diastolic Echocardiogram ordered. Patient transitioned to Lasix gtt, cardiology consult appreciated, monitor I&O and daily weights, monitor electrolytes and renal function. 3. Acute kidney injury with chronic kidney disease stage III. Consult with nephrology appreciated. 4. Hypovolemic Hyponatremia. Low-salt diet with 1200 fluid restrictions 5. Diabetes mellitus type 2, uncontrolled with hyperglycemia. Continue insulin sliding scale 6. Hypertension. Continue amlodipine decreased to 5 mg daily, atenolol 100 mg daily, Catapres 0.05 mg twice daily, hydralazine decreased to 50 mg twice daily. 7. Hyperlipidemia. Continue Lipitor 20 mg at bedtime 8. History of CVA with right-sided weakness. Continue aspirin 81 mg daily, Lipitor 20 mg at bedtime for secondary prevention 9. History of coronary artery disease. Continue Imdur 30 mg daily. 10. Generalized anxiety disorder. Xanax on hold. Lorazepam 0.5 mg every 8 hours as needed for anxiety 11. GI prophylaxis. Protonix. 12. DVT prophylaxis. Heparin subcu. CODE STATUS: No code Discharge plan: Return to [facility] Impression and plan of care have been directed as dictated by the signing physician. Irma Stoll nurse practitioner acting as scribe for signing physician. Objective - Vital Signs Vital signs: Vital Signs Temp 98.7 F 03/24/20 08:00 Pulse 60 03/24/20 08:57 Resp 21 03/24/20 08:00 BP 112/46 03/24/20 08:00 Pulse Ox 94 L 03/24/20 08:00 Intake & Output 03/23/20 03/24/20 03/24/20 18:59 06:59 18:59 Intake Total 836 Output Total 975 Balance 836 -975 Intake: Intake, IV Titration 350 Amount Levofloxacin 500Mg-D5w 100 Pmx 500 mg In Dextrose/ Water 1 100ml.bag @ 100 mls/hr IVPB Q48H [facility] Rx#: [id number] Vancomycin 1,250 mg In 250 Sodium Chloride 0.9% 250 ml @ 125 mls/hr IVPB Q24HR [facility] Rx#:[id number] Oral 486 Output: Urine 975 Other: Voiding Method Indwelling Catheter Indwelling Catheter - Labs CBC & Chem 7: 03/23/20 13:09 03/24/20 07:29 Labs: Abnormal Lab Results - Last 24 Hours (Table) 03/22/20 03/23/20 03/23/20 Range/Units 03:48 11:34 13:09 RBC (3.80-5.40) m/uL Hgb (11.4-16.0) gm/dL Hct (34.0-46.0) % Lymphocytes # (1.0-4.8) k/uL Sodium 128 L (137-145) mmol/L Chloride 97 L (98-107) mmol/L BUN 54 H (7-17) mg/dL Creatinine 1.66 H (0.52-1.04) mg/dL Glucose 148 H (74-99) mg/dL POC Glucose (mg/dL) 163 H (75-99) mg/dL Troponin I (0.000-0.034) ng/mL Procalcitonin 0.22 H (0.02-0.09) ng/mL Ur Leukocyte Esterase (Negative) Urine WBC (0-5) /hpf Urine Bacteria (None) /hpf Hyaline Casts (0-2) /lpf Urine Mucus (None) /hpf 03/23/20 03/23/20 03/23/20 Range/Units 13:09 13:09 16:03 RBC 3.32 L (3.80-5.40) m/uL Hgb 10.2 L (11.4-16.0) gm/dL Hct 31.6 L (34.0-46.0) % Lymphocytes # 0.8 L (1.0-4.8) k/uL Sodium (137-145) mmol/L Chloride (98-107) mmol/L BUN (7-17) mg/dL Creatinine (0.52-1.04) mg/dL Glucose (74-99) mg/dL POC Glucose (mg/dL) (75-99) mg/dL Troponin I 0.091 H* 0.088 H* (0.000-0.034) ng/mL Procalcitonin (0.02-0.09) ng/mL Ur Leukocyte Esterase (Negative) Urine WBC (0-5) /hpf Urine Bacteria (None) /hpf Hyaline Casts (0-2) /lpf Urine Mucus (None) /hpf 03/23/20 03/23/20 03/23/20 Range/Units 17:00 17:01 20:38 RBC (3.80-5.40) m/uL Hgb (11.4-16.0) gm/dL Hct (34.0-46.0) % Lymphocytes # (1.0-4.8) k/uL Sodium (137-145) mmol/L Chloride (98-107) mmol/L BUN (7-17) mg/dL Creatinine (0.52-1.04) mg/dL Glucose (74-99) mg/dL POC Glucose (mg/dL) 135 H 162 H (75-99) mg/dL Troponin I (0.000-0.034) ng/mL Procalcitonin (0.02-0.09) ng/mL Ur Leukocyte Esterase Small H (Negative) Urine WBC 6 H (0-5) /hpf Urine Bacteria Rare H (None) /hpf Hyaline Casts 4 H (0-2) /lpf Urine Mucus Rare H (None) /hpf 03/24/20 03/24/20 Range/Units 06:09 07:29 RBC (3.80-5.40) m/uL Hgb (11.4-16.0) gm/dL Hct (34.0-46.0) % Lymphocytes # (1.0-4.8) k/uL Sodium 130 L (137-145) mmol/L Chloride (98-107) mmol/L BUN 56 H (7-17) mg/dL Creatinine 1.82 H (0.52-1.04) mg/dL Glucose 119 H (74-99) mg/dL POC Glucose (mg/dL) 125 H (75-99) mg/dL Troponin I (0.000-0.034) ng/mL Procalcitonin (0.02-0.09) ng/mL Ur Leukocyte Esterase (Negative) Urine WBC (0-5) /hpf Urine Bacteria (None) /hpf Hyaline Casts (0-2) /lpf Urine Mucus (None) /hpf
--- NOTE | 2020-03-24 15:42 | NM ---
EXAMINATION TYPE: NM pul perfusion DATE OF EXAM: 03/24/2020 COMPARISON: NONE HISTORY: hypoxia Following administration of 5.2 mCi Tc 99m MAA. Perfusion Images obtained post injection. FINDINGS: Several bilateral perfusion defects are noted. The examination is indeterminate and I do recommend a corresponding ventilation study. IMPRESSION: Indeterminant examination. Findings could be on the basis of underlying congestive failure. Correspon ding ventilation study advised.
[2020-03-24 16:46] LABS: Glucose,Whole Blood 210 mg/dL (75-99)
[2020-03-24 20:36] LABS: Glucose,Whole Blood 241 mg/dL (75-99)
[2020-03-24] MEDS: ATORVASTATIN 20 MG TAB PO SCH (21:14)
[2020-03-24] MEDS: INSULIN ASPART (NovoLOG) 100 UNIT/ML VIAL SQ SCH (21:14)
[2020-03-25] MEDS: FUROSEMIDE 100 MG in SODIUM CHLORIDE 0.9% 90 ML IV SCH ×2 (06:13→20:20)
[2020-03-25] MEDS: INSULIN ASPART (NovoLOG) 100 UNIT/ML VIAL SQ SCH ×4 (06:22→21:38)
[2020-03-25] MEDS: SENNOSIDES-DOCUSATE SODIUM 1 EACH TAB PO SCH ×2 (06:22→21:37)
[2020-03-25] MEDS: PANTOPRAZOLE 40 MG TABLET PO SCH (06:22)
[2020-03-25 06:37] LABS: Glucose,Whole Blood 192 mg/dL (75-99)
[2020-03-25] MEDS: BUDESONIDE 0.5 MG/2 ML NEBU INHALATION SCH ×2 (07:36→19:46)
[2020-03-25] MEDS: IPRATROPIUM-ALBUTEROL 3 ML NEB INHALATION SCH ×4 (07:36→19:46)
[2020-03-25 08:28] LABS: Calcium 8.6 mg/dL (8.4-10.2); Magnesium 2.2 mg/dL (1.6-2.3); Potassium 3.9 mmol/L (3.5-5.1)
[2020-03-25 08:33] LABS: Vancomycin,Random 15.7 ug/mL
[2020-03-25] MEDS: ISOSORBIDE MONONITRATE ER 30 MG TAB.ER.24H PO SCH (09:14)
[2020-03-25] MEDS: CITALOPRAM HYDROBROMIDE 20 MG TAB PO SCH (09:14)
[2020-03-25] MEDS: ASPIRIN 81 MG PO SCH (09:14)
[2020-03-25] MEDS: HEPARIN SODIUM,PORCINE 5,000 UNIT/ML 1 ML VIAL SQ SCH ×2 (09:14→21:38)
[2020-03-25] MEDS: NYSTATIN 100,000 UNIT/ML SUSP 500,000 UNIT/5 ML CUP PO SCH ×4 (09:14→22:35)
[2020-03-25] MEDS: amLODIPine 5 MG TAB PO SCH (09:15)
[2020-03-25] MEDS: cloNIDine HCL 0.1 MG TAB PO SCH ×2 (09:15→22:42)
[2020-03-25] MEDS: hydrALAZINE HCL 50 MG TAB PO SCH ×2 (09:15→22:43)
[2020-03-25] MEDS: methylPREDNISolone SOD SUCCI 40 MG/ML 1 ML VIAL IV SCH ×2 (09:15→22:34)
[2020-03-25] MEDS: CLOTRIMAZOLE/BETAMETH 1-0.05% CREAM 45 GM TUBE TOPICAL SCH ×2 (09:16→21:39)
[2020-03-25] MEDS: atenoloL 50 MG TAB PO SCH (09:17)
--- NOTE | 2020-03-25 09:31 | P.PN ---
Subjective Progress Note Date: 03/25/20 Principal diagnosis: Acute on chronic hypoxic respiratory failure Acute exacerbation of acute on chronic systolic heart failure Pulmonary hypertension and severe tricuspid regurgitation Bilateral pneumonia Acute kidney injury Type 2 diabetes mellitus Dyslipidemia Hypertension hypertensive cardiovascular disease CVA prior with right-sided weakness 03/25/2020, patient seen eval reexamined during the rounds labs reviewed medications reviewed, remains on 15 L high flow oxygen, comfortable oxygen saturation is in low to mid 90s, remains on IV Lasix, creatinine improved to 1.75, vancomycin level is in therapeutic range 15.7, patient did use the BiPAP machine at nighttime for almost 6-7 hours 03/24/2020, patient seen eval reexamined, she has been on BiPAP overnight 01/09 with 80% oxygen switched to high flow oxygen 15 L oxygen saturations 94% she feels better today she is being diuresed renal service has recommended to start Lasix strip, patient remains on the IV antibiotics along with bronchodilator, we'll start some steroids as well This is a 84-year-old female seen evaluated examined overall a poor historian, data mostly obtained from the chart, patient is a resident of the [facility] on chronic home oxygen also on BiPAP support, there are some issues with activity of BiPAP at [facility], she developed progressive shortness of breath and admitted into the hospital, recently she was hospitalized at [facility] she was found to have severe tricuspid regurgitation status post bilateral pleural effusion and thoracentesis, her baseline problems are significant for chronic systolic heart failure type 2 diabetes mellitus hypertension hypertensive cardiovascular disease dyslipidemia she has a 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, on arrival she was very hypoxic with bilateral infiltrate on the x-ray she was treated with broad-spectrum antibiotics currently on vancomycin and Levaquin also on BiPAP 01/09 is 70% oxygen, currently patient is on the 15 L high flow oxygen awake and alert, denies any chest pain does have ongoing shortness of breath, chest x-ray shows bilateral CHF-like changes along with bilateral pneumonia cannot be excluded with basal atelectasis small pleural effusion Objective - Vital Signs Vital signs: Vital Signs Temp 98.2 F 03/25/20 08:00 Pulse 72 03/25/20 08:00 Resp 18 03/25/20 08:00 BP 103/39 03/25/20 08:00 Pulse Ox 93 L 03/25/20 08:00 Intake & Output 03/24/20 03/25/20 03/25/20 18:59 06:59 18:59 Intake Total 477 234.5 Output Total 650 775 Balance -173 -540.5 Intake: Intake, IV Titration 184.5 Amount Furosemide 100 mg In 184.5 Sodium Chloride 0.9% 90 ml @ 10 MG/HR 10 mls/hr IV .Q10H [facility] Rx#: [id number] Oral 477 50 Output: Urine 650 775 Other: Voiding Method Indwelling Catheter Indwelling Catheter - Exam - Constitutional General appearance: average body habitus, cooperative, disheveled, mild distress - EENT Eyes: PERRLA Ears: bilateral: normal - Neck Neck: normal ROM Carotids: bilateral: upstroke normal - Respiratory Respiratory: bilateral: diminished, rales - Cardiovascular Rhythm: regular Heart sounds: normal: S1, S2 - Gastrointestinal General gastrointestinal: normal bowel sounds, soft - Musculoskeletal Musculoskeletal: gait normal, generalized weakness - Labs CBC & Chem 7: 03/23/20 13:09 03/25/20 07:46 Labs: Abnormal Lab Results - Last 24 Hours (Table) 03/24/20 03/24/20 03/24/20 Range/Units 10:03 11:48 16:45 D-Dimer 4.73 H (<0.60) mg/L FEU Sodium (137-145) mmol/L BUN (7-17) mg/dL Creatinine (0.52-1.04) mg/dL Glucose (74-99) mg/dL POC Glucose (mg/dL) 168 H 210 H (75-99) mg/dL 03/24/20 03/25/20 03/25/20 Range/Units 20:33 06:16 07:46 D-Dimer (<0.60) mg/L FEU Sodium 132 L (137-145) mmol/L BUN 65 H (7-17) mg/dL Creatinine 1.75 H (0.52-1.04) mg/dL Glucose 171 H (74-99) mg/dL POC Glucose (mg/dL) 241 H 192 H (75-99) mg/dL Assessment and Plan Assessment: Acute on chronic hypoxic respiratory failure Acute exacerbation of acute on chronic systolic heart failure Pulmonary hypertension and severe tricuspid regurgitation Bilateral pneumonia COPD with acute exacerbation Acute kidney injury Type 2 diabetes mellitus Dyslipidemia Hypertension 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
--- NOTE | 2020-03-25 10:18 | P.PN ---
Subjective Progress Note Date: 03/25/20 Principal diagnosis: Valvular heart disease This is an 84-year-old female patient who was admitted to the hospital with increasing shortness of breath and she was diagnosed with acute exacerbation of heart failure secondary to diastole dysfunction with possible underlying pneumo sanjuana. The patient was seen today March 252020. Clinically she is looking better. She still on high flow oxygen 5 L. The shortness of breath overall is better. No symptoms of chest pain or chest discomfort. She has been diuresing very well since she was started on Lasix drip. Echo revealed normal left ventricular systolic function with evidence of severe aortic regurgitation and severe mitral regurgitation and moderate tricuspid regurgitation. Objective - Vital Signs Vital signs: Vital Signs Temp 98.2 F 03/25/20 08:00 Pulse 72 03/25/20 08:00 Resp 18 03/25/20 08:00 BP 103/39 03/25/20 08:00 Pulse Ox 93 L 03/25/20 08:00 Intake & Output 03/24/20 03/25/20 03/25/20 18:59 06:59 18:59 Intake Total 477 234.5 Output Total 650 775 Balance -173 -540.5 Intake: Intake, IV Titration 184.5 Amount Furosemide 100 mg In 184.5 Sodium Chloride 0.9% 90 ml @ 10 MG/HR 10 mls/hr IV .Q10H [facility] Rx#: [id number] Oral 477 50 Output: Urine 650 775 Other: Voiding Method Indwelling Catheter Indwelling Catheter Indwelling Catheter - Constitutional General appearance: Present: no acute distress - Respiratory Respiratory: bilateral: diminished - Cardiovascular Rhythm: regular Heart sounds: normal: S1, S2 Abnormal Heart Sounds: Present: systolic murmur - Labs CBC & Chem 7: 03/23/20 13:09 03/25/20 07:46 Labs: Abnormal Lab Results - Last 24 Hours (Table) 03/24/20 03/24/20 03/24/20 Range/Units 10:03 11:48 16:45 D-Dimer 4.73 H (<0.60) mg/L FEU Sodium (137-145) mmol/L BUN (7-17) mg/dL Creatinine (0.52-1.04) mg/dL Glucose (74-99) mg/dL POC Glucose (mg/dL) 168 H 210 H (75-99) mg/dL 03/24/20 03/25/20 03/25/20 Range/Units 20:33 06:16 07:46 D-Dimer (<0.60) mg/L FEU Sodium 132 L (137-145) mmol/L BUN 65 H (7-17) mg/dL Creatinine 1.75 H (0.52-1.04) mg/dL Glucose 171 H (74-99) mg/dL POC Glucose (mg/dL) 241 H 192 H (75-99) mg/dL Assessment and Plan Assessment: Assessment #1 shortness of breath multifocal corneal #2 heart failure exacerbation secondary to heart failure with preserved ejection fraction #3 valvular heart disease as described above #4 acute on chronic renal failure #5 multiple comorbid conditions Plan #1 continue Lasix drip and nephrology service is on the case #2 continue monitor the kidney function and electrolytes #3 follow-up with the patient
--- NOTE | 2020-03-25 10:36 | P.PN ---
Subjective Patient is seen in follow-up for acute kidney injury. She is currently on high flow nasal cannula. She is maintained on Lasix drip. Renal function stable. Blood pressure on the lower side. Urine output 1.4 L in the last 24 hours. Vital signs are stable. General: The patient appeared well nourished and normally developed. HEENT: Currently on nasal cannula. LUNGS: Breath sounds decreased. HEART: Rate and Rhythm are regular. ABDOMEN: Soft, nontender. EXTREMITITES: Trace edema. Objective - Vital Signs Vital signs: Vital Signs Temp 98.2 F 03/25/20 08:00 Pulse 72 03/25/20 08:00 Resp 18 03/25/20 08:00 BP 103/39 03/25/20 08:00 Pulse Ox 93 L 03/25/20 08:00 Intake & Output 03/24/20 03/25/20 03/25/20 18:59 06:59 18:59 Intake Total 477 234.5 Output Total 650 775 Balance -173 -540.5 Intake: Intake, IV Titration 184.5 Amount Furosemide 100 mg In 184.5 Sodium Chloride 0.9% 90 ml @ 10 MG/HR 10 mls/hr IV .Q10H [facility] Rx#: [id number] Oral 477 50 Output: Urine 650 775 Other: Voiding Method Indwelling Catheter Indwelling Catheter Indwelling Catheter - Labs CBC & Chem 7: 03/23/20 13:09 03/25/20 07:46 Labs: Abnormal Lab Results - Last 24 Hours (Table) 03/24/20 03/24/20 03/24/20 Range/Units 10:03 11:48 16:45 D-Dimer 4.73 H (<0.60) mg/L FEU Sodium (137-145) mmol/L BUN (7-17) mg/dL Creatinine (0.52-1.04) mg/dL Glucose (74-99) mg/dL POC Glucose (mg/dL) 168 H 210 H (75-99) mg/dL 03/24/20 03/25/20 03/25/20 Range/Units 20:33 06:16 07:46 D-Dimer (<0.60) mg/L FEU Sodium 132 L (137-145) mmol/L BUN 65 H (7-17) mg/dL Creatinine 1.75 H (0.52-1.04) mg/dL Glucose 171 H (74-99) mg/dL POC Glucose (mg/dL) 241 H 192 H (75-99) mg/dL Assessment and Plan Plan: Assessment: 1. Acute kidney injury versus chronic kidney disease. Etiology is cardiorenal syndrome. No prior records available. Creatinine stable at 1.75 today. UA benign. No hydronephrosis noted on kidney ultrasound. Patient has underlying chronic kidney disease as both kidneys are small in size. 2. Hypervolemic hyponatremia. Improving with diuresis. 3. Acute diastolic CHF with severe aortic regurgitation, moderate aortic stenosis, severe mitral regurgitation, moderate tricuspid regurgitation and moderate to severe pulmonary hypertension. 4. Fluid overload. Improving with diuresis. 5. Diabetes mellitus. 6. Acute hypoxic respiratory failure. 7. Hypertension with chronic kidney disease. Controlled. 8. Pneumonia maintained on antibiotics. Plan: Maintain Lasix drip at 10 mL an hour. Low-salt diet and 1200 mL fluid restriction. Strict is and os. Repeat electrolytes in the morning. Hold hydralazine and amlodipine for systolic blood pressure less than 120. Wean FiO2. Monitor vancomycin levels. Dose to be adjusted for renal function. Add midodrine 5 mg 3 times daily. To be held for systolic blood pressure greater than 110.
[2020-03-25] MEDS ORDERED: VANCOMYCIN 1,250 MG in SODIUM CHLORIDE 0.9% 250 ML IVPB ONE (12:00)
[2020-03-25 12:07] LABS: Glucose,Whole Blood 227 mg/dL (75-99)
[2020-03-25] MEDS: MIDODRINE 5 MG TAB PO SCH ×2 (12:40→17:27)
--- NOTE | 2020-03-25 14:12 | P.PN ---
Subjective Progress Note Date: 03/25/20 This is an 84-year-old female patient of Dr. Valente with past medical history of coronary artery disease, aortic valve stenosis status post replacement, chronic systolic heart failure, diabetes mellitus type 2, hypertension, hyperlipidemia, CVA with dysarthria and right-sided weakness, chronic hypoxic respiratory failure on home O2, chronic kidney disease stage III, generalized anxiety disorder. Patient was recently seen at [facility] which time she was treated for pleural effusions status post bilateral thoracentesis. Patient is known to have severe tricuspid regurgitati on. Patient was recently started on methylphenidate 20 mg twice daily. She went to [facility] but had a panic attack and returned [facility] within [facility]. Also [facility] did not have BiPAP which she required. She was stabilized and then discharged back to [facility]. Patient was then doing well until yesterday when she developed increasing shortness of breath. He also had increasing lower extremity edema. Denies having any chest pain. No lightheadedness or dizziness. Patient presented to [facility] emergency center for evaluation. EKG was sinus rhythm without acute ST changes. Chest x-ray showed bilateral infiltrates with component of pulmonary edema. ProBNP 09745. Lactic acid 2.2 with repeat of 1.3. Sodium 127, potassium 5.3, chloride 93, CO2 23, BUN 46 and creatinine 1.54. Blood sugar 292. Phosphorus 7.1, magnesium 2.0. LDH 862. Troponin 0.075. C-reactive protein 44.8. Coronavirus PCR not detected. Patient has been started on IV Lasix 40 mg twice daily, consults requested with pulmonary medicine, cardiology and nephrology. 03/23 patient examined bedside. Continues to be on 15 L of nasal cannula high flow. Chest x-ray repeated today shows mild atelectasis with bilateral infiltrate concerning for pneumonia with pulmonary edema. Cardiology evaluated the patient and recommended echocardiogram currently pending. We'll continue with Lasix 40 mg IV twice a day. Continue antibiotics including vancomycin and levofloxacin. Mycoplasma and Legionella ordered. Chest x-ray shows only small pleural effusion of benefit for thoracentesis at this point. Continue albuterol and Pulmicort. 03/25 patient examined bedside. Is comfortable shortness of breath is improved. Continues to be on 15 L high flow. We will plan to transition down to 10 L and was for hypoxia. Patient continues to be on Lasix drip per nephrology recommendation. Urine output was 1.4 L in the past 24 hours. evaluated suggested sodium 132 BUN 65 creatinine 1.75 glucose 227 continue Solu-Medrol 40 IV every 12 continue insulin sliding scale REVIEW OF SYSTEMS Constitutional: No fever, no chills, no night sweats. No weight change. Reports weakness, reports fatigue. No daytime sleepiness. EENT: No headache. No blurred vision or double vision, no loss of vision. No loss of Hearing, no ringing in the ears, no dizziness. No nasal drainage or congestion. No epistaxis. No sore throat. Lungs: Reports shortness of breath, cough, no sputum production. No wheezing. Cardiovascular: No chest pain, reports lower extremity edema. No palpitations. No paroxysmal nocturnal dyspnea. No orthopnea. No lightheadedness or dizziness. No syncopal episodes. Abdominal: No abdominal pain. No nausea, vomiting. No diarrhea. No constipation. No bloody or tarry stools reports loss of appetite. Genitourinary: No dysuria, increased frequency, urgency. No urinary retention. Musculoskeletal: No myalgias. No muscle weakness, no gait dysfunction, no frequent falls. No back pain. No neck pain. Integumentary: No wounds, no lesions. No rash or pruritus. No unusual bruising. No change in hair or nails. Neurologic: No aphasia. No facial droop. No change in mentation. No head injury. No headache. No paralysis. No paresthesia. Psychiatric: No depression. No anxiety. No mood swings. Endocrine: No abnormal blood sugars. No weight change. No excessive sweating or thirst. No cold intolerance. Objective - Vital Signs Vital signs: Vital Signs Temp 97.5 F L 03/25/20 12:00 Pulse 74 03/25/20 12:15 Resp 18 03/25/20 12:00 BP 137/53 03/25/20 12:00 Pulse Ox 98 03/25/20 12:00 Intake & Output 03/24/20 03/25/20 03/25/20 18:59 06:59 18:59 Intake Total 477 234.5 240 Output Total 650 775 Balance -173 -540.5 240 Weight 68.9 kg Intake: Intake, IV Titration 184.5 Amount Furosemide 100 mg In 184.5 Sodium Chloride 0.9% 90 ml @ 10 MG/HR 10 mls/hr IV .Q10H [facility] Rx#: [id number] Oral 477 50 240 Output: Urine 650 775 Other: Voiding Method Indwelling Catheter Indwelling Catheter Indwelling Catheter - Exam PHYSICAL EXAMINATION Gen: This is an 84-year-old female. Appears drowsy HEENT: Head is atraumatic, normocephalic. Pupils equal, round. Sclerae is anicteric. Patient is on BiPAP. NECK: Supple. No JVD. No lymphadenopathy. No thyromegaly. LUNGS: Decreased air entry bilaterally. No wheezes or rhonchi. HEART: Regular rate and rhythm. Systolic murmur. ABDOMEN: Soft. Bowel sounds are present. No masses. No tenderness. EXTREMITIES: 1+ bilateral pedal edema. No calf tenderness. NEUROLOGICAL: Patient is awake, alert and oriented x3. Cranial nerves 2 through 12 are grossly intact - Labs CBC & Chem 7: 03/23/20 13:09 03/25/20 07:46 Labs: Abnormal Lab Results - Last 24 Hours (Table) 03/24/20 03/24/20 03/25/20 Range/Units 16:45 20:33 06:16 Sodium (137-145) mmol/L BUN (7-17) mg/dL Creatinine (0.52-1.04) mg/dL Glucose (74-99) mg/dL POC Glucose (mg/dL) 210 H 241 H 192 H (75-99) mg/dL 03/25/20 03/25/20 Range/Units 07:46 12:03 Sodium 132 L (137-145) mmol/L BUN 65 H (7-17) mg/dL Creatinine 1.75 H (0.52-1.04) mg/dL Glucose 171 H (74-99) mg/dL POC Glucose (mg/dL) 227 H (75-99) mg/dL Assessment and Plan Plan: ASSESSMENT AND PLAN 1. Acute on chronic hypoxic respiratory failure requiring BiPAP. Consult pulmonary medicine. Continue oxygen therapy with BiPAP. Continue DuoNeb treatments 4 times daily and as needed, Pulmicort 0.5 mg twice daily and repeat chest x-ray suggestive of bibasilar pneumonia and finding of CHF with minimal pleural effusions. Continue Lasix. Pro-calcitonin mildly elevated, sputum culture. 2. Acute on chronic heart failure, possible diastolic Echocardiogram ordered. On Lasix drip, cardiology consult, monitor I&O and daily weights, monitor electrolytes and renal function. 3. Acute kidney injury with chronic kidney disease stage III. Consult with nephrology added. 4. Hypovolemic Hyponatremia. Low-salt diet with 1200 fluid restrictions 5. Diabetes mellitus type 2, uncontrolled with hyperglycemia. Continue insulin sliding scale 6. Hypertension. Continue amlodipine 10 mg daily, atenolol 100 mg daily, Catapres 0.05 mg twice daily, hydralazine 100 mg twice daily. 7. Hyperlipidemia. Continue Lipitor 20 mg at bedtime 8. History of CVA with right-sided weakness. Continue aspirin 81 mg daily, Lipitor 20 mg at bedtime for secondary prevention 9. History of coronary artery disease. Continue Imdur 30 mg daily. 10. Generalized anxiety disorder. Xanax on hold. Lorazepam 0.5 mg every 8 hours as needed for anxiety 11. GI prophylaxis. Protonix. 12. DVT prophylaxis. Heparin subcu. CODE STATUS: No code
[2020-03-25 16:53] LABS: Glucose,Whole Blood 303 mg/dL (75-99)
[2020-03-25] MEDS: LEVOFLOXACIN 500MG-D5W PMX 500 MG in DEXTROSE/WATER 1 100ML.BAG IVPB SCH (17:30)
[2020-03-25 20:54] LABS: Glucose,Whole Blood 379 mg/dL (75-99)
[2020-03-25] MEDS: ACETAMINOPHEN TAB 325 MG TAB PO PRN (21:37)
[2020-03-25] MEDS: ATORVASTATIN 20 MG TAB PO SCH (21:37)
[2020-03-26 06:47] LABS: Glucose,Whole Blood 249 mg/dL (75-99)
[2020-03-26] MEDS: INSULIN ASPART (NovoLOG) 100 UNIT/ML VIAL SQ SCH ×4 (06:49→20:56)
[2020-03-26] MEDS: PANTOPRAZOLE 40 MG TABLET PO SCH (06:49)
[2020-03-26] MEDS: SENNOSIDES-DOCUSATE SODIUM 1 EACH TAB PO SCH ×2 (06:49→20:57)
[2020-03-26] MEDS: MIDODRINE 5 MG TAB PO SCH ×3 (06:50→17:50)
[2020-03-26] MEDS: IPRATROPIUM-ALBUTEROL 3 ML NEB INHALATION SCH ×4 (08:09→20:12)
[2020-03-26] MEDS: BUDESONIDE 0.5 MG/2 ML NEBU INHALATION SCH ×2 (08:09→20:12)
[2020-03-26 08:20] LABS: Potassium 4.2 mmol/L (3.5-5.1)
[2020-03-26 08:21] LABS: Calcium 8.9 mg/dL (8.4-10.2); Magnesium 2.3 mg/dL (1.6-2.3)
[2020-03-26] MEDS: methylPREDNISolone SOD SUCCI 40 MG/ML 1 ML VIAL IV SCH ×2 (08:55→20:55)
[2020-03-26] MEDS: HEPARIN SODIUM,PORCINE 5,000 UNIT/ML 1 ML VIAL SQ SCH ×2 (08:56→20:55)
[2020-03-26] MEDS: ISOSORBIDE MONONITRATE ER 30 MG TAB.ER.24H PO SCH (08:56)
[2020-03-26] MEDS: ASPIRIN 81 MG PO SCH (08:56)
[2020-03-26] MEDS: CITALOPRAM HYDROBROMIDE 20 MG TAB PO SCH (08:56)
[2020-03-26] MEDS: cloNIDine HCL 0.1 MG TAB PO SCH ×2 (08:56→20:56)
[2020-03-26] MEDS: hydrALAZINE HCL 50 MG TAB PO SCH ×2 (08:56→20:56)
[2020-03-26] MEDS: amLODIPine 5 MG TAB PO SCH (08:56)
[2020-03-26] MEDS: atenoloL 50 MG TAB PO SCH (08:56)
[2020-03-26] MEDS: NYSTATIN 100,000 UNIT/ML SUSP 500,000 UNIT/5 ML CUP PO SCH ×4 (08:57→20:56)
[2020-03-26] MEDS: CLOTRIMAZOLE/BETAMETH 1-0.05% CREAM 45 GM TUBE TOPICAL SCH ×2 (08:58→20:57)
--- NOTE | 2020-03-26 11:25 | P.PN ---
Subjective Patient is seen in follow-up for acute kidney injury. She is currently on high flow nasal cannula. She is maintained on Lasix drip. Renal function stable. Blood pressure stable. Urine output 1.5 L in the last 24 hours. Has a Calix catheter. No vomiting or diarrhea. Oral intake fair. Vital signs are stable. General: The patient appeared well nourished and normally developed. HEENT: Currently on nasal cannula. LUNGS: Breath sounds decreased. HEART: Rate and Rhythm are regular. ABDOMEN: Soft, nontender. EXTREMITITES: Trace edema. Objective - Vital Signs Vital signs: Vital Signs Temp 98.1 F 03/26/20 08:00 Pulse 76 03/26/20 08:22 Resp 19 03/26/20 08:00 BP 136/49 03/26/20 08:00 Pulse Ox 95 03/26/20 08:11 Intake & Output 03/25/20 03/26/20 03/26/20 18:59 06:59 18:59 Intake Total 2150 240 440 Output Total 1000 500 Balance 1150 -260 440 Weight 68.9 kg 68.4 kg Intake: Intake, IV Titration 450 Amount Furosemide 100 mg In 100 Sodium Chloride 0.9% 90 ml @ 10 MG/HR 10 mls/hr IV .Q10H [facility] Rx#: [id number] Levofloxacin 500Mg-D5w 100 Pmx 500 mg In Dextrose/ Water 1 100ml.bag @ 100 mls/hr IVPB Q48H [facility] Rx#: [id number] Vancomycin 1,250 mg In 250 Sodium Chloride 0.9% 250 ml @ 125 mls/hr IVPB ONCE ONE Rx#:[id number] Oral 1700 240 440 Output: Urine 1000 500 Other: Voiding Method Indwelling Catheter Indwelling Catheter Indwelling Catheter # Bowel Movements 1 - Labs CBC & Chem 7: 03/23/20 13:09 03/26/20 07:40 Labs: Abnormal Lab Results - Last 24 Hours (Table) 03/25/20 03/25/20 03/25/20 Range/Units 12:03 16:47 20:33 Sodium (137-145) mmol/L BUN (7-17) mg/dL Creatinine (0.52-1.04) mg/dL Glucose (74-99) mg/dL POC Glucose (mg/dL) 227 H 303 H 379 H (75-99) mg/dL 03/26/20 03/26/20 Range/Units 06:44 07:40 Sodium 135 L (137-145) mmol/L BUN 73 H (7-17) mg/dL Creatinine 1.60 H (0.52-1.04) mg/dL Glucose 211 H (74-99) mg/dL POC Glucose (mg/dL) 249 H (75-99) mg/dL Microbiology - Last 24 Hours (Table) 03/25/20 16:01 Sputum Culture - Final Sputum Assessment and Plan Plan: Assessment: 1. Acute kidney injury versus chronic kidney disease. Etiology is cardiorenal syndrome. No prior records available. Creatinine a little better at 1.6 today. UA benign. No hydronephrosis noted on kidney ultrasound. Patient has underlying chronic kidney disease as both kidneys are small in size. 2. Hypervolemic hyponatremia. Improving with diuresis. 3. Acute diastolic CHF with severe aortic regurgitation, moderate aortic stenosis, severe mitral regurgitation, moderate tricuspid regurgitation and moderate to severe pulmonary hypertension. 4. Fluid overload. Improving with diuresis. 5. Diabetes mellitus. 6. Acute hypoxic respiratory failure. 7. Hypertension with chronic kidney disease. Controlled. 8. Pneumonia maintained on antibiotics. Plan: Maintain Lasix drip at 10 mL an hour for another 24 hours. Low-salt diet and 1200 mL fluid restriction. Strict is and os. Repeat electrolytes in the morning. Hold hydralazine and amlodipine for systolic blood pressure less than 120. Wean FiO2. Monitor vancomycin levels. Dose to be adjusted for renal function. Maintain midodrine 5 mg 3 times daily. To be held for systolic blood pressure greater than 110.
[2020-03-26 11:59] LABS: Glucose,Whole Blood 243 mg/dL (75-99)
[2020-03-26] MEDS: FUROSEMIDE 100 MG in SODIUM CHLORIDE 0.9% 90 ML IV SCH ×3 (12:36→23:41)
--- NOTE | 2020-03-26 14:00 | P.PN ---
Subjective Progress Note Date: 03/26/20 HISTORY OF PRESENT ILLNESS: Patient examined this morning at the bedside. She denies chest pain or pressure. She reports feeling short of breath but states it is improving each day. She is on 10 L nasal cannula. She remains on a Lasix drip per nephrology. Creatinine 1.6 today. Fluid balance over the last 24 hours is +890 mL. Echocardiogram completed revealed ejection fraction 55-60%. PHYSICAL EXAM: VITAL SIGNS: Reviewed. GENERAL: Well-developed in no acute distress. NECK: Supple. No JVD or thyromegaly LUNGS: Respirations even and unlabored. Lungs diminished. HEART: Regular rate and rhythm. S1 and S2 heard. Systolic mumur noted. EXTREMITIES: Normal range of motion. No clubbing or cyanosis. Peripheral pulses intact. Trace bilateral lower extremity edema ASSESSMENT: Acute exacerbation of chronic diastolic heart failure, ejection fraction 55-60% Pneumonia Acute hypoxic respiratory failure Acute on chronic kidney disease Hypertension Hyperlipidemia History of CVA with right-sided weakness Diabetes mellitus PLAN: Wean oxygen as tolerated Nephrology following. Continue Lasix drip per nephrology Monitor kidney function Accurate I&O Daily weights Echo reports states can not rule out vegetation. Dr. Garcia will review echo and make further recommendations. Further recommendations pending patient course Nurse practitioner note has been reviewed by physician. Signing provider agrees with the documented findings, assessment, and plan of care. Objective - Vital Signs Vital signs: Vital Signs Temp 98.1 F 03/26/20 08:00 Pulse 68 03/26/20 12:00 Resp 19 03/26/20 12:00 BP 110/45 03/26/20 12:00 Pulse Ox 97 03/26/20 12:00 Intake & Output 03/25/20 03/26/20 03/26/20 18:59 06:59 18:59 Intake Total 2150 340 440 Output Total 1000 500 Balance 1150 -160 440 Weight 68.9 kg 68.4 kg Intake: Intake, IV Titration 450 100 Amount Furosemide 100 mg In 100 100 Sodium Chloride 0.9% 90 ml @ 10 MG/HR 10 mls/hr IV .Q10H [facility] Rx#: [id number] Levofloxacin 500Mg-D5w 100 Pmx 500 mg In Dextrose/ Water 1 100ml.bag @ 100 mls/hr IVPB Q48H [facility] Rx#: [id number] Vancomycin 1,250 mg In 250 Sodium Chloride 0.9% 250 ml @ 125 mls/hr IVPB ONCE ONE Rx#:[id number] Oral 1700 240 440 Output: Urine 1000 500 Other: Voiding Method Indwelling Catheter Indwelling Catheter Indwelling Catheter # Bowel Movements 1 - Labs CBC & Chem 7: 03/23/20 13:09 03/26/20 07:40 Labs: Abnormal Lab Results - Last 24 Hours (Table) 03/25/20 03/25/20 03/26/20 Range/Units 16:47 20:33 06:44 Sodium (137-145) mmol/L BUN (7-17) mg/dL Creatinine (0.52-1.04) mg/dL Glucose (74-99) mg/dL POC Glucose (mg/dL) 303 H 379 H 249 H (75-99) mg/dL 03/26/20 03/26/20 Range/Units 07:40 11:57 Sodium 135 L (137-145) mmol/L BUN 73 H (7-17) mg/dL Creatinine 1.60 H (0.52-1.04) mg/dL Glucose 211 H (74-99) mg/dL POC Glucose (mg/dL) 243 H (75-99) mg/dL Microbiology - Last 24 Hours (Table) 03/25/20 16:01 Sputum Culture - Final Sputum
--- NOTE | 2020-03-26 16:28 | P.PN ---
Subjective Progress Note Date: 03/26/20 This is an 84-year-old female patient of Dr. Valente with past medical history of coronary artery disease, aortic valve stenosis status post replacement, chronic systolic heart failure, diabetes mellitus type 2, hypertension, hyperlipidemia, CVA with dysarthria and right-sided weakness, chronic hypoxic respiratory failure on home O2, chronic kidney disease stage III, generalized anxiety disorder. Patient was recently seen at [facility] which time she was treated for pleural effusions status post bilateral thoracentesis. Patient is known to have severe tricuspid regurgitati on. Patient was recently started on methylphenidate 20 mg twice daily. She went to [facility] but had a panic attack and returned here in [facility] within 2 hours. Also [facility] did not have BiPAP which she required. She was stabilized and then discharged back to [facility]. Patient was then doing well until yesterday when she developed increasing shortness of breath. He also had increasing lower extremity edema. Denies having any chest pain. No lightheadedness or dizziness. Patient presented to [facility] emergency center for evaluation. EKG was sinus rhythm without acute ST changes. Chest x-ray showed bilateral infiltrates with component of pulmonary edema. ProBNP 45685. Lactic acid 2.2 with repeat of 1.3. Sodium 127, potassium 5.3, chloride 93, CO2 23, BUN 46 and creatinine 1.54. Blood sugar 292. Phosphorus 7.1, magnesium 2.0. LDH 862. Troponin 0.075. C-reactive protein 44.8. Coronavirus PCR not detected. Patient has been started on IV Lasix 40 mg twice daily, consults requested with pulmonary medicine, cardiology and nephrology. 03/23 patient examined bedside. Continues to be on 15 L of nasal cannula high flow. Chest x-ray repeated today shows mild atelectasis with bilateral infiltrate concerning for pneumonia with pulmonary edema. Cardiology evaluated the patient and recommended echocardiogram currently pending. We'll continue with Lasix 40 mg IV twice a day. Continue antibiotics including vancomycin and levofloxacin. Mycoplasma and Legionella ordered. Chest x-ray shows only small pleural effusion of benefit for thoracentesis at this point. Continue albuterol and Pulmicort. 03/25 patient examined bedside. Is comfortable shortness of breath is improved. Continues to be on 15 L high flow. We will plan to transition down to 10 L and was for hypoxia. Patient continues to be on Lasix drip per nephrology recommendation. Urine output was 1.4 L in the past 24 hours. evaluated suggested sodium 132 BUN 65 creatinine 1.75 glucose 227 continue Solu-Medrol 40 IV every 12 continue insulin sliding scale 03/26 patient continues to be on 10 L oxygen high flow. Continue Lasix drip for next 24 hours per nephrology. Monitor I&O's. Continue Calix catheter for monitoring of urine output. On evaluation today BUN is trending up to 73 creatinine 1.6 hemoglobin pending. Blood sugar this morning to 2 49. We'll hold vancomycin continue levofloxacin. Repeat pro calcitonin. We will add patient on Lantus 5 units twice a day while patient on Solu-Medrol REVIEW OF SYSTEMS Constitutional: No fever, no chills, no night sweats. No weight change. Reports weakness, reports fatigue. No daytime sleepiness. EENT: No headache. No blurred vision or double vision, no loss of vision. No loss of Hearing, no ringing in the ears, no dizziness. No nasal drainage or congestion. No epistaxis. No sore throat. Lungs: Reports shortness of breath, cough, no sputum production. No wheezing. Cardiovascular: No chest pain, reports lower extremity edema. No palpitations. No paroxysmal nocturnal dyspnea. No orthopnea. No lightheadedness or dizziness. No syncopal episodes. Abdominal: No abdominal pain. No nausea, vomiting. No diarrhea. No constipati on. No bloody or tarry stools reports loss of appetite. Genitourinary: No dysuria, increased frequency, urgency. No urinary retention. Musculoskeletal: No myalgias. No muscle weakness, no gait dysfunction, no frequent falls. No back pain. No neck pain. Integumentary: No wounds, no lesions. No rash or pruritus. No unusual bruising. No change in hair or nails. Neurologic: No aphasia. No facial droop. No change in mentation. No head injury. No headache. No paralysis. No paresthesia. Psychiatric: No depression. No anxiety. No mood swings. Endocrine: No abnormal blood sugars. No weight change. No excessive sweating or thirst. No cold intolerance. Objective - Vital Signs Vital signs: Vital Signs Temp 98.1 F 03/26/20 08:00 Pulse 80 03/26/20 11:36 Resp 19 03/26/20 08:00 BP 136/49 03/26/20 08:00 Pulse Ox 95 03/26/20 08:11 Intake & Output 03/25/20 03/26/20 03/26/20 18:59 06:59 18:59 Intake Total 2150 240 440 Output Total 1000 500 Balance 1150 -260 440 Weight 68.9 kg 68.4 kg Intake: Intake, IV Titration 450 Amount Furosemide 100 mg In 100 Sodium Chloride 0.9% 90 ml @ 10 MG/HR 10 mls/hr IV .Q10H [facility] Rx#: [id number] Levofloxacin 500Mg-D5w 100 Pmx 500 mg In Dextrose/ Water 1 100ml.bag @ 100 mls/hr IVPB Q48H [facility] Rx#: [id number] Vancomycin 1,250 mg In 250 Sodium Chloride 0.9% 250 ml @ 125 mls/hr IVPB ONCE ONE Rx#:[id number] Oral 1700 240 440 Output: Urine 1000 500 Other: Voiding Method Indwelling Catheter Indwelling Catheter Indwelling Catheter # Bowel Movements 1 - Exam PHYSICAL EXAMINATION Gen: This is an 84-year-old female. Appears drowsy HEENT: Head is atraumatic, normocephalic. Pupils equal, round. Sclerae is anicteric. Patient is on BiPAP. NECK: Supple. No JVD. No lymphadenopathy. No thyromegaly. LUNGS: Decreased air entry bilaterally. No wheezes or rhonchi. HEART: Regular rate and rhythm. Systolic murmur. ABDOMEN: Soft. Bowel sounds are present. No masses. No tenderness. EXTREMITIES: 1+ bilateral pedal edema. No calf tenderness. NEUROLOGICAL: Patient is awake, alert and oriented x3. Cranial nerves 2 through 12 are grossly intact - Labs CBC & Chem 7: 03/23/20 13:09 03/26/20 07:40 Labs: Abnormal Lab Results - Last 24 Hours (Table) 03/25/20 03/25/20 03/25/20 Range/Units 12:03 16:47 20:33 Sodium (137-145) mmol/L BUN (7-17) mg/dL Creatinine (0.52-1.04) mg/dL Glucose (74-99) mg/dL POC Glucose (mg/dL) 227 H 303 H 379 H (75-99) mg/dL 03/26/20 03/26/20 Range/Units 06:44 07:40 Sodium 135 L (137-145) mmol/L BUN 73 H (7-17) mg/dL Creatinine 1.60 H (0.52-1.04) mg/dL Glucose 211 H (74-99) mg/dL POC Glucose (mg/dL) 249 H (75-99) mg/dL Microbiology - Last 24 Hours (Table) 03/25/20 16:01 Sputum Culture - Final Sputum Assessment and Plan Plan: ASSESSMENT AND PLAN 1. Acute on chronic hypoxic respiratory failure requiring BiPAP. Consult pulmonary medicine. Continue oxygen therapy with BiPAP. Continue DuoNeb treatments 4 times daily and as needed, Pulmicort 0.5 mg twice daily and repeat chest x-ray suggestive of bibasilar pneumonia and finding of CHF with minimal pleural effusions. Continue Lasix. Pro-calcitonin mildly elevated, sputum culture. Repeat pro-calcitonin. Hold vancomycin continue levofloxacin 2. Acute on chronic heart failure, possible diastolic Echocardiogram ordered. On Lasix drip, cardiology consult, monitor I&O and daily weights, monitor electrolytes and renal function. 3. Acute kidney injury with chronic kidney disease stage III. Consult with nephrology added. 4. Hypovolemic Hyponatremia. Low-salt diet with 1200 fluid restrictions 5. Diabetes mellitus type 2, uncontrolled with hyperglycemia. Continue insulin sliding scale and is initiated at 5 mg twice a day 6. Hypertension. Continue amlodipine 10 mg daily, atenolol 100 mg daily, Catapres 0.05 mg twice daily, hydralazine 100 mg twice daily. 7. Hyperlipidemia. Continue Lipitor 20 mg at bedtime 8. History of CVA with right-sided weakness. Continue aspirin 81 mg daily, Lipitor 20 mg at bedtime for secondary prevention 9. History of coronary artery disease. Continue Imdur 30 mg daily. 10. Generalized anxiety disorder. Xanax on hold. Lorazepam 0.5 mg every 8 hours as needed for anxiety 11. GI prophylaxis. Protonix. 12. DVT prophylaxis. Heparin subcu. CODE STATUS: No code
[2020-03-26 16:50] LABS: Glucose,Whole Blood 314 mg/dL (75-99)
--- NOTE | 2020-03-26 17:00 | P.PN ---
Subjective Progress Note Date: 03/26/20 Principal diagnosis: Acute on chronic hypoxic respiratory failure Acute exacerbation of acute on chronic systolic heart failure Pulmonary hypertension and severe tricuspid regurgitation Bilateral pneumonia Acute kidney injury Type 2 diabetes mellitus Dyslipidemia Hypertension hypertensive cardiovascular disease CVA prior with right-sided weakness 03/26/2020, patient seen eval examined during the rounds labs reviewed medications reviewed, respiratory status continued to improve, now down to 10 L high flow oxygen, patient continued to use BiPAP machine at nighttime, B UN/creatinine remains stable 73 and 1.6 03/25/2020, patient seen eval reexamined during the rounds labs reviewed medications reviewed, remains on 15 L high flow oxygen, comfortable oxygen saturation is in low to mid 90s, remains on IV Lasix, creatinine improved to 1.75, vancomycin level is in therapeutic range 15.7, patient did use the BiPAP machine at nighttime for almost 6-7 hours 03/24/2020, patient seen eval reexamined, she has been on BiPAP overnight 01/09 with 80% oxygen switched to high flow oxygen 15 L oxygen saturations 94% she feels better today she is being diuresed renal service has recommended to start Lasix strip, patient remains on the IV antibiotics along with bronchodilator, we'll start some steroids as well This is a 84-year-old female seen evaluated examined overall a poor historian, data mostly obtained from the chart, patient is a resident of the [facility] on chronic home oxygen also on BiPAP support, there are some issues with activity of BiPAP at [facility], she developed progressive shortness of breath and admitted into the hospital, recently she was hospitalized at [facility] she was found to have severe tricuspid regurgitation status post bilateral pleural effusion and thoracentesis, her baseline problems are significant for chronic systolic heart failure type 2 diabetes mellitus hypertension hypertensive cardiovascular disease dyslipidemia she has a 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, on arrival she was very hypoxic with bilateral infiltrate on the x-ray she was treated with broad-spectrum antibiotics currently on vancomycin and Levaquin also on BiPAP /5 is 70% oxygen, currently patient is on the 15 L high flow oxygen awake and alert, denies any chest pain does have ongoing shortness of breath, chest x-ray shows bilateral CHF-like changes along with bilateral pneumonia cannot be excluded with basal atelectasis small pleural effusion Objective - Vital Signs Vital signs: Vital Signs Temp 98.1 F 03/26/20 08:00 Pulse 72 03/26/20 16:00 Resp 19 03/26/20 16:00 BP 107/47 03/26/20 16:00 Pulse Ox 94 L 03/26/20 16:00 Intake & Output 03/25/20 03/26/20 03/26/20 18:59 06:59 18:59 Intake Total 2150 340 690 Output Total 1901 285 8934 Balance 1150 -160 -710 Weight 68.9 kg 68.4 kg Intake: Intake, IV Titration 450 100 Amount Furosemide 100 mg In 100 100 Sodium Chloride 0.9% 90 ml @ 10 MG/HR 10 mls/hr IV .Q10H [facility] Rx#: [id number] Levofloxacin 500Mg-D5w 100 Pmx 500 mg In Dextrose/ Water 1 100ml.bag @ 100 mls/hr IVPB Q48H [facility] Rx#: [id number] Vancomycin 1,250 mg In 250 Sodium Chloride 0.9% 250 ml @ 125 mls/hr IVPB ONCE ONE Rx#:[id number] Oral 1700 240 690 Output: Urine 0179 484 0660 Other: Voiding Method Indwelling Catheter Indwelling Catheter Indwelling Catheter # Bowel Movements 1 - Exam - Constitutional General appearance: average body habitus, cooperative, disheveled, mild distress - EENT Eyes: PERRLA Ears: bilateral: normal - Neck Neck: normal ROM Carotids: bilateral: upstroke normal - Respiratory Respiratory: bilateral: diminished, rales - Cardiovascular Rhythm: regular Heart sounds: normal: S1, S2 - Gastrointestinal General gastrointestinal: normal bowel sounds, soft - Musculoskeletal Musculoskeletal: gait normal, generalized weakness - Labs CBC & Chem 7: 03/23/20 13:09 03/26/20 07:40 Labs: Abnormal Lab Results - Last 24 Hours (Table) 03/25/20 03/26/20 03/26/20 Range/Units 20:33 06:44 07:40 Sodium 135 L (137-145) mmol/L BUN 73 H (7-17) mg/dL Creatinine 1.60 H (0.52-1.04) mg/dL Glucose 211 H (74-99) mg/dL POC Glucose (mg/dL) 379 H 249 H (75-99) mg/dL 03/26/20 03/26/20 Range/Units 11:57 16:47 Sodium (137-145) mmol/L BUN (7-17) mg/dL Creatinine (0.52-1.04) mg/dL Glucose (74-99) mg/dL POC Glucose (mg/dL) 243 H 314 H (75-99) mg/dL Microbiology - Last 24 Hours (Table) 03/25/20 16:01 Gram Stain - Final Sputum Sputum Culture - Final Assessment and Plan Assessment: Acute on chronic hypoxic respiratory failure Acute exacerbation of acute on chronic systolic heart failure Pulmonary hypertension and severe tricuspid regurgitation Bilateral pneumonia COPD with acute exacerbation Acute kidney injury Type 2 diabetes mellitus Dyslipidemia Hypertension 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
[2020-03-26] MEDS ORDERED: VANCOMYCIN 1,250 MG in SODIUM CHLORIDE 0.9% 250 ML IVPB ONE (18:00)
[2020-03-26 20:47] LABS: Glucose,Whole Blood 243 mg/dL (75-99)
[2020-03-26] MEDS: INSULIN DETEMIR (LEVEMIR) 100 UNIT/ML SYR SQ SCH (20:56)
[2020-03-26] MEDS: ATORVASTATIN 20 MG TAB PO SCH (20:57)
[2020-03-27 06:48] LABS: Glucose,Whole Blood 215 mg/dL (75-99)
[2020-03-27] MEDS: PANTOPRAZOLE 40 MG TABLET PO SCH (07:01)
[2020-03-27] MEDS: INSULIN ASPART (NovoLOG) 100 UNIT/ML VIAL SQ SCH ×4 (07:02→21:22)
[2020-03-27] MEDS: SENNOSIDES-DOCUSATE SODIUM 1 EACH TAB PO SCH ×2 (07:02→21:19)
[2020-03-27] MEDS: INSULIN DETEMIR (LEVEMIR) 100 UNIT/ML SYR SQ SCH ×2 (07:02→21:22)
[2020-03-27] MEDS: MIDODRINE 5 MG TAB PO SCH ×3 (07:02→17:30)
[2020-03-27 07:59] LABS: Calcium 8.4 mg/dL (8.4-10.2); Magnesium 2.4 mg/dL (1.6-2.3)
[2020-03-27] MEDS: BUDESONIDE 0.5 MG/2 ML NEBU INHALATION SCH ×2 (08:06→21:35)
[2020-03-27] MEDS: IPRATROPIUM-ALBUTEROL 3 ML NEB INHALATION SCH ×4 (08:06→21:35)
[2020-03-27] MEDS: FUROSEMIDE 100 MG in SODIUM CHLORIDE 0.9% 90 ML IV SCH ×2 (08:30→17:59)
[2020-03-27] MEDS: CITALOPRAM HYDROBROMIDE 20 MG TAB PO SCH (08:33)
[2020-03-27] MEDS: cloNIDine HCL 0.1 MG TAB PO SCH ×2 (08:33→21:21)
[2020-03-27] MEDS: ASPIRIN 81 MG PO SCH (08:33)
[2020-03-27] MEDS: hydrALAZINE HCL 50 MG TAB PO SCH ×2 (08:33→21:21)
[2020-03-27] MEDS: ISOSORBIDE MONONITRATE ER 30 MG TAB.ER.24H PO SCH (08:33)
[2020-03-27] MEDS: atenoloL 50 MG TAB PO SCH (08:34)
[2020-03-27] MEDS: CLOTRIMAZOLE/BETAMETH 1-0.05% CREAM 45 GM TUBE TOPICAL SCH ×2 (08:34→21:22)
[2020-03-27] MEDS: methylPREDNISolone SOD SUCCI 40 MG/ML 1 ML VIAL IV SCH ×2 (08:34→21:21)
[2020-03-27] MEDS: NYSTATIN 100,000 UNIT/ML SUSP 500,000 UNIT/5 ML CUP PO SCH ×4 (08:34→21:19)
[2020-03-27] MEDS: amLODIPine 5 MG TAB PO SCH (08:34)
[2020-03-27] MEDS: HEPARIN SODIUM,PORCINE 5,000 UNIT/ML 1 ML VIAL SQ SCH ×2 (08:34→21:21)
--- NOTE | 2020-03-27 09:46 | P.PN ---
Subjective Progress Note Date: 03/27/20 84-year-old female admitted to the hospital with symptoms of worsening shortness of breath, was diagnosed with acute exacerbation of diastolic congestive heart failure and possibly underlying pneumonia. Continues at this time to be on a Lasix drip at 10 mg per hour. Blood pressure 128/60 with a heart rate in the 60s, 92% on 10 L high flow cannula. Sodium 135, potassium 4.0, BUN 83, creatinine 1.5, magnesium 2.4. No weight documented this morning. Objective - Vital Signs Vital signs: Vital Signs Temp 97.4 F L 03/27/20 08:30 Pulse 69 03/27/20 08:30 Resp 18 03/27/20 08:30 BP 129/51 03/27/20 08:30 Pulse Ox 92 L 03/27/20 08:30 Intake & Output 03/26/20 03/27/20 03/27/20 18:59 06:59 18:59 Intake Total 1190 340 88.167 Output Total 1400 725 Balance -210 -385 88.167 Intake: Intake, IV Titration 100 88.167 Amount Furosemide 100 mg In 100 88.167 Sodium Chloride 0.9% 90 ml @ 10 MG/HR 10 mls/hr IV .Q10H [facility] Rx#: [id number] Oral 1190 240 Output: Urine 1400 725 Other: Voiding Method Indwelling Catheter Indwelling Catheter Indwelling Catheter # Bowel Movements 0 0 - Exam PHYSICAL EXAMINATION: GENERAL: 84-year-old female in no acute distress at the time of my examination HEENT: Head is atraumatic, normocephalic. Pupils equal, round. Sclera anicteric. Conjunctiva are clear. Mucous membranes of the mouth are moist. Neck is supple. There is no elevated jugular venous pressure. No carotid bruit is heard. HEART EXAMINATION: Heart S1 S2 1 systolic murmur is heard CHEST EXAMINATION: Lungs reveal diminished air entry to the bases bilaterally ABDOMEN: Soft, nontender. Bowel sounds are heard. No organomegaly noted. EXTREMITIES: 2+ peripheral pulses with no evidence of peripheral edema and no calf tenderness noted. NEUROLOGIC patient is awake, alert and oriented 2 . . - Labs CBC & Chem 7: 03/23/20 13:09 03/27/20 07:29 Labs: Abnormal Lab Results - Last 24 Hours (Table) 03/26/20 03/26/20 03/26/20 Range/Units 07:40 11:57 16:47 Sodium (137-145) mmol/L BUN (7-17) mg/dL Creatinine (0.52-1.04) mg/dL Glucose (74-99) mg/dL POC Glucose (mg/dL) 243 H 314 H (75-99) mg/dL Magnesium (1.6-2.3) mg/dL Procalcitonin 1.03 H (0.02-0.09) ng/mL 03/26/20 03/27/20 03/27/20 Range/Units 20:46 06:46 07:29 Sodium 135 L (137-145) mmol/L BUN 83 H (7-17) mg/dL Creatinine 1.57 H (0.52-1.04) mg/dL Glucose 197 H (74-99) mg/dL POC Glucose (mg/dL) 243 H 215 H (75-99) mg/dL Magnesium 2.4 H (1.6-2.3) mg/dL Procalcitonin (0.02-0.09) ng/mL Microbiology - Last 24 Hours (Table) 03/25/20 16:01 Gram Stain - Final Sputum Sputum Culture - Final Assessment and Plan Plan: Assessment and plan #1 diastolic congestive heart failure acute on chronic #2 possible pneumonia #3 acute on chronic kidney disease #4 hypertension #5 hyperlipidemia #6 history of CVA with right-sided weakness #7 diabetes Plan We will continue current Lasix drip as per nephrology's recommendation. Continue to monitor the patient's intake and output along with daily weights. Patient's echo cardiac gram with Doppler study revealed an ejection fraction of 55-60%, severe aortic regurgitation with moderate aortic stenosis noted, severe mitral regurgitation, suggestion of possible vegetation, moderate tricuspid regurg, moderate to severe pulmonary hypertension. Further recommendations to follow. DNP note has been reviewed, I agree with a documented findings and plan of care. Patient was seen and examined.
[2020-03-27 12:11] LABS: Glucose,Whole Blood 217 mg/dL (75-99)
--- NOTE | 2020-03-27 12:28 | XR ---
EXAMINATION TYPE: XR chest 1V portable DATE OF EXAM: 03/27/2020 HISTORY: Shortness of breath. COMPARISON: 03/23/2020 TECHNIQUE: Single view of the chest is submitted. FINDINGS: Demonstrated are scattered senescent parenchymal change. Proving features of congestive failure. Persistent pulmonary venous congestion and bilateral effusion s and left basilar atelectasis or infiltrates. The heart is stable. Hilar and mediastinal structures are within normal limits. Degenerative changes are seen of the dorsal spine. IMPRESSION: 1. Proving features of congestive failure. Persistent pulmonary venous congestion and bilateral effu sions and left basilar atelectasis or infiltrates.
--- NOTE | 2020-03-27 13:40 | P.PN ---
Subjective Progress Note Date: 03/27/20 Principal diagnosis: Acute and chronic hypoxic respiratory failure, acute on chronic heart failure, acute kidney injury, hyponatremia, type 2 diabetes, chronic kidney disease. This is an 84-year-old female patient of Dr. 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 Patient was recently seen at [facility] [place] which time she was treated for pleural effusions status post bilateral thoracentesis. Patient is known to have severe tricuspid regurgitation. Patient was recently started on methylphenidate 20 mg twice daily. She went to [facility] but had a panic attack and returned here in Medical Center within 2 hours. Also [facility] did not have BiPAP which she required. She was stabilized and then discharged back to [facility]. Patient was then doing well until yesterday when she developed increasing shortness of breath. He also had increasing lower extremity edema. Denies having any chest pain. No lightheadedness or dizziness. Patient presented to [facility] emergency center for evaluation. EKG was sinus rhythm without acute ST changes. Chest x-ray showed bilateral infiltrates with component of pulmonary edema. ProBNP 35103. Lactic acid 2.2 with repeat of 1.3. Sodium 127, potassium 5.3, chloride 93, CO2 23, B UN 46 and creatinine 1.54. Blood sugar 292. Phosphorus 7.1, magnesium 2.0. LDH 862. Troponin 0.075. C-reactive protein 44.8. Coronavirus PCR not detected. Patient has been started on IV Lasix 40 mg twice daily, consults requested with pulmonary medicine, cardiology and nephrology. 03/23 patient examined bedside. Continues to be on 15 L of nasal cannula high flow. Chest x-ray repeated today shows mild atelectasis with bilateral infiltrate concerning for pneumonia with pulmonary edema. Cardiology evaluated the patient and recommended echocardiogram currently pending. We'll continue with Lasix 40 mg IV twice a day. Continue antibiotics including vancomycin and levofloxacin. Mycoplasma and Legionella ordered. Chest x-ray shows only small pleural effusion of benefit for thoracentesis at this point. Continue albuterol and Pulmicort. 03/25 patient examined bedside. Is comfortable shortness of breath is improved. Continues to be on 15 L high flow. We will plan to transition down to 10 L and was for hypoxia. Patient continues to be on Lasix drip per nephrology recommendation. Urine output was 1.4 L in the past 24 hours. evaluated suggested sodium 132 BUN 65 creatinine 1.75 glucose 227 continue Solu-Medrol 40 IV every 12 continue insulin sliding scale 03/26 patient continues to be on 10 L oxygen high flow. Continue Lasix drip for next 24 hours per nephrology. Monitor I&O's. Continue Calix catheter for monitoring of urine output. On evaluation today BUN is trending up to 73 creatinine 1.6 hemoglobin pending. Blood sugar this morning to 2 49. We'll hold vancomycin continue levofloxacin. Repeat pro calcitonin. We will add patient on Lantus 5 units twice a day while patient on Solu-Medrol 03/27: Patient is doing much better she still on BiPAP using like less oxygen the high flow from 10 L when down to 5 so far. Blood sugars under control currently. Patient is diuresing very well with current diuretics, her kidney function remained good so far. Patient will titrate PTOT will remove Calix catheter and prepare hopefully for going back to [facility] on Sunday. Objective - Vital Signs Vital signs: Vital Signs Temp 97 F L 03/27/20 12:00 Pulse 72 03/27/20 12:13 Resp 18 03/27/20 12:00 BP 108/38 03/27/20 12:00 Pulse Ox 96 03/27/20 12:00 Intake & Output 03/26/20 03/27/20 03/27/20 18:59 06:59 18:59 Intake Total 1190 340 88.167 Output Total 1400 725 Balance -210 -385 88.167 Weight 61.5 kg Intake: Intake, IV Titration 100 88.167 Amount Furosemide 100 mg In 100 88.167 Sodium Chloride 0.9% 90 ml @ 10 MG/HR 10 mls/hr IV .Q10H [facility] Rx#: [id number] Oral 1190 240 Output: Urine 1400 725 Other: Voiding Method Indwelling Catheter Indwelling Catheter Toilet # Bowel Movements 0 0 - Exam REVIEW OF SYSTEMS Constitutional: No fever, no chills, no night sweats. No weight change. Reports weakness, reports fatigue. No daytime sleepiness. EENT: No headache. No blurred vision or double vision, no loss of vision. No loss of Hearing, no ringing in the ears, no dizziness. No nasal drainage or congestion. No epistaxis. No sore throat. Lungs: Reports shortness of breath, cough, no sputum production. No wheezing. Cardiovascular: No chest pain, reports lower extremity edema. No palpitations. No paroxysmal nocturnal dyspnea. No orthopnea. No lightheadedness or dizziness. No syncopal episodes. Abdominal: No abdominal pain. No nausea, vomiting. No diarrhea. No constipation. No bloody or tarry stools reports loss of appetite. Genitourinary: No dysuria, increased frequency, urgency. No urinary retention. Musculoskeletal: No myalgias. No muscle weakness, no gait dysfunction, no frequent falls. No back pain. No neck pain. Integumentary: No wounds, no lesions. No rash or pruritus. No unusual bruising. No change in hair or nails. Neurologic: No aphasia. No facial droop. No change in mentation. No head injury. No headache. No paralysis. No paresthesia. Psychiatric: No depression. No anxiety. No mood swings. Endocrine: No abnormal blood sugars. No weight change. No excessive sweating or thirst. No cold intolerance. PHYSICAL EXAMINATION Gen: This is an 84-year-old female. Appears drowsy HEENT: Head is atraumatic, normocephalic. Pupils equal, round. Sclerae is anicteric. Patient is on BiPAP. NECK: Supple. No JVD. No lymphadenopathy. No thyromegaly. LUNGS: Decreased air entry bilaterally. No wheezes or rhonchi. HEART: Regular rate and rhythm. Systolic murmur. ABDOMEN: Soft. Bowel sounds are present. No masses. No tenderness. EXTREMITIES: 1+ bilateral pedal edema. No calf tenderness. NEUROLOGICAL: Patient is awake, alert and oriented x3. Cranial nerves 2 through 12 are grossly intact - Labs CBC & Chem 7: 03/23/20 13:09 03/27/20 07:29 Labs: Abnormal Lab Results - Last 24 Hours (Table) 03/26/20 03/26/20 03/26/20 Range/Units 07:40 16:47 20:46 Sodium (137-145) mmol/L BUN (7-17) mg/dL Creatinine (0.52-1.04) mg/dL Glucose (74-99) mg/dL POC Glucose (mg/dL) 314 H 243 H (75-99) mg/dL Magnesium (1.6-2.3) mg/dL Procalcitonin 1.03 H (0.02-0.09) ng/mL 03/27/20 03/27/20 03/27/20 Range/Units 06:46 07:29 12:10 Sodium 135 L (137-145) mmol/L BUN 83 H (7-17) mg/dL Creatinine 1.57 H (0.52-1.04) mg/dL Glucose 197 H (74-99) mg/dL POC Glucose (mg/dL) 215 H 217 H (75-99) mg/dL Magnesium 2.4 H (1.6-2.3) mg/dL Procalcitonin (0.02-0.09) ng/mL Microbiology - Last 24 Hours (Table) 03/25/20 16:01 Gram Stain - Final Sputum Sputum Culture - Final Assessment and Plan Assessment: 1. Acute on chronic hypoxic respiratory failure requiring BiPAP. Consult pulmonary medicine. Continue oxygen therapy with BiPAP. Continue DuoNeb treatments 4 times daily and as needed, Pulmicort 0.5 mg twice daily and repeat chest x-ray suggestive of bibasilar pneumonia and finding of CHF with minimal pleural effusions. Continue Lasix. Pro-calcitonin mildly elevated, sputum culture. Repeat pro-calcitonin. Hold vancomycin continue levofloxacin 2. Acute on chronic heart failure, possible diastolic Echocardiogram ordered. Lasix was switched to IV push was switched to oral Lasix by Sunday continue to monitor daily weight and intake and output with urine output mostly. 3. Acute kidney injury with chronic kidney disease stage III. Remove Calix catheter continue to watch her urine output. 4. Hypovolemic Hyponatremia. Sodium is much better continue low fluid restriction but was titrated lipid more. 5. Diabetes mellitus type 2, uncontrolled with hyperglycemia. Continue insulin sliding scale and is initiated at 5 mg twice a day 6. Hypertension. Continue amlodipine 10 mg daily, atenolol 100 mg daily, Catapres 0.05 mg twice daily, hydralazine 100 mg twice daily. 7. Hyperlipidemia. Continue Lipitor 20 mg at bedtime 8. History of CVA with right-sided weakness. Continue aspirin 81 mg daily, Lipitor 20 mg at bedtime for secondary prevention 9. History of coronary artery disease. Continue Imdur 30 mg daily. 10. Generalized anxiety disorder. Xanax on hold. Lorazepam 0.5 mg every 8 hours as needed for anxiety 11. GI prophylaxis. Protonix. Discharge planning: Possibly back to [facility] on Sunday or Sunday.
[2020-03-27] MEDS: LEVOFLOXACIN 500 MG TAB PO SCH (13:52)
--- NOTE | 2020-03-27 15:21 | PN ---
PROGRESS NOTE The patient is seen for followup for acute kidney injury. She is currently awake. Denies any significant complaints. Renal function has improved with creatinine down to 1.57 from peak of 1.8 on 03/24/2020. The patient is currently maintained on Lasix drip. Overall she states she is feeling better. Her weight is down significantly from 68.4 to 61.5 kg. I am not sure this is accurate. A 24 hour urine output documented at 1500 mL. PHYSICAL EXAMINATION: On examination today, blood pressure 108/38, heart rate 65 per minute, she is afebrile. Examination of the heart S1, S2. Examination of the lungs, bilateral breath sounds are heard. Abdomen is soft, nontender. Examination of lower extremities shows edema with chronic skin changes. 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 LAB: Show sodium 135, potassium 4.0, chloride 99, BUN 83, creatinine 1.57. ASSESSMENT: 1. Acute kidney injury, mostly cardiorenal syndrome, currently improving. Patient is maintained on Lasix drip which I will continue. 2. Hypervolemic hyponatremia, improving with diuresis. 3. Acute congestive heart failure, acute on top of chronic, mostly diastolic. 4. Severe aortic regurgitation with moderate aortic stenosis and severe mitral valve regurgitation and moderate to severe pulmonary hypertension. 5. Pneumonia, maintained on antibiotics. PLAN: Continue with the Lasix drip for now. Continue with daily weights. The patient is advised regarding salt and fluid restriction. Repeat labs in a.m. MMODL / IJN: [id number] /
[2020-03-27 17:00] LABS: Glucose,Whole Blood 209 mg/dL (75-99)
[2020-03-27 21:15] LABS: Glucose,Whole Blood 270 mg/dL (75-99)
[2020-03-27] MEDS: ATORVASTATIN 20 MG TAB PO SCH (21:21)
[2020-03-28] MEDS: FUROSEMIDE 100 MG in SODIUM CHLORIDE 0.9% 90 ML IV SCH (04:30)
[2020-03-28 06:48] LABS: Glucose,Whole Blood 181 mg/dL (75-99)
[2020-03-28] MEDS: INSULIN DETEMIR (LEVEMIR) 100 UNIT/ML SYR SQ SCH ×2 (06:57→21:31)
[2020-03-28] MEDS: INSULIN ASPART (NovoLOG) 100 UNIT/ML VIAL SQ SCH ×4 (06:57→21:31)
[2020-03-28] MEDS: PANTOPRAZOLE 40 MG TABLET PO SCH (06:57)
[2020-03-28] MEDS: SENNOSIDES-DOCUSATE SODIUM 1 EACH TAB PO SCH ×2 (06:57→21:30)
[2020-03-28] MEDS: MIDODRINE 5 MG TAB PO SCH ×3 (06:57→17:24)
[2020-03-28 07:23] LABS: HCT 33.3 % (34.0-46.0); HGB 11.1 gm/dL (11.4-16.0); MCH 30.7 pg (25.0-35.0); MCHC 33.3 g/dL (31.0-37.0); MCV 91.9 fL (80.0-100.0); Mean Platelet Volume 7.8; Platelet Count 192 k/uL (150-450); RBC 3.62 m/uL (3.80-5.40); RDW 15.6 % (11.5-15.5); WBC 6.4 k/uL (3.8-10.6)
[2020-03-28 07:35] LABS: Albumin 3.3 g/dL (3.5-5.0); Calcium 8.6 mg/dL (8.4-10.2); Potassium 3.8 mmol/L (3.5-5.1); Total Bilirubin 0.6 mg/dL (0.2-1.3); Total Protein 5.4 g/dL (6.3-8.2)
[2020-03-28] MEDS: IPRATROPIUM-ALBUTEROL 3 ML NEB INHALATION SCH ×4 (07:40→19:20)
[2020-03-28] MEDS: BUDESONIDE 0.5 MG/2 ML NEBU INHALATION SCH ×2 (07:40→20:41)
[2020-03-28] MEDS: NYSTATIN 100,000 UNIT/ML SUSP 500,000 UNIT/5 ML CUP PO SCH ×4 (08:29→21:31)
[2020-03-28] MEDS: methylPREDNISolone SOD SUCCI 40 MG/ML 1 ML VIAL IV SCH (08:29)
[2020-03-28] MEDS: HEPARIN SODIUM,PORCINE 5,000 UNIT/ML 1 ML VIAL SQ SCH ×2 (08:29→21:30)
[2020-03-28] MEDS: amLODIPine 5 MG TAB PO SCH (08:30)
[2020-03-28] MEDS: ISOSORBIDE MONONITRATE ER 30 MG TAB.ER.24H PO SCH (08:30)
[2020-03-28] MEDS: ASPIRIN 81 MG PO SCH (08:30)
[2020-03-28] MEDS: hydrALAZINE HCL 50 MG TAB PO SCH ×2 (08:30→21:30)
[2020-03-28] MEDS: CITALOPRAM HYDROBROMIDE 20 MG TAB PO SCH (08:30)
[2020-03-28] MEDS: cloNIDine HCL 0.1 MG TAB PO SCH ×2 (08:30→21:30)
[2020-03-28] MEDS: atenoloL 50 MG TAB PO SCH (08:30)
[2020-03-28] MEDS: CLOTRIMAZOLE/BETAMETH 1-0.05% CREAM 45 GM TUBE TOPICAL SCH ×3 (08:31→21:31)
--- NOTE | 2020-03-28 10:21 | P.PN ---
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 03/28/2020, patient seen eval examined during the rounds labs reviewed medications reviewed, patient remains on 10 L high flow oxygen, remains afebrile, oxygen saturation are 93%, hemodynamic status stable, last chest x-ray performed yesterday reviewed continue to have CHF-like finding along with pulmonary valve is congestion and bilateral pleural effusion with basal atelectasis slowly improving, labs reviewed the ER and creatinine continued to go up to 94 and 1.55 month patient monitor off of antibiotics 03/26/2020, patient seen eval examined during the rounds labs reviewed medications reviewed, respiratory status continued to improve, now down to 10 L high flow oxygen, patient continued to use BiPAP machine at nighttime, BUN/creatinine remains stable 73 and 1.6 03/25/2020, patient seen eval reexamined during the rounds labs reviewed medications reviewed, remains on 15 L high flow oxygen, comfortable oxygen saturation is in low to mid 90s, remains on IV Lasix, creatinine improved to 1.75, vancomycin level is in therapeutic range 15.7, patient did use the BiPAP machine at nighttime for almost 6-7 hours 03/24/2020, patient seen eval reexamined, she has been on BiPAP overnight 01/09 with 80% oxygen switched to high flow oxygen 15 L oxygen saturations 94% she feels better today she is being diuresed renal service has recommended to start Lasix strip, patient remains on the IV antibiotics along with bronchodilator, we'll start some steroids as well This is a 84-year-old female seen evaluated examined overall a poor historian, data mostly obtained from the chart, patient is a resident of the [facility], [facility] on chronic home oxygen also on BiPAP support, there are some issues with activity of BiPAP at [facility], she developed progressive shortness of breath and admitted into the hospital, recently she was hospitalized at [facility] she was found to have severe tricuspid regurgitation status post bilateral pleural effusion and thoracentesis, her baseline problems are significant for chronic systolic heart failure type 2 diabetes mellitus hypertension hypertensive cardiovascular disease dyslipidemia she has a 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, on arrival she was very hypoxic with bilateral infiltrate on the x-ray she was treated with broad-spectrum antibiotics currently on vancomycin and Levaquin also on BiPAP 01/09 is 70% oxygen, currently patient is on the 15 L high flow oxygen awake and alert, denies any chest pain does have ongoing shortness of breath, chest x-ray shows bilateral CHF-like changes along with bilateral pneumonia cannot be excluded with basal atelectasis small pleural effusion Objective - Vital Signs Vital signs: Vital Signs Temp 97.2 F L 03/28/20 08:00 Pulse 74 03/28/20 08:00 Resp 18 03/28/20 08:00 BP 125/48 03/28/20 08:00 Pulse Ox 93 L 03/28/20 08:00 Intake & Output 03/27/20 03/28/20 03/28/20 18:59 06:59 18:59 Intake Total 843.000 220 320 Output Total 725 Balance 843.000 -505 320 Weight 61.5 kg 44.5 kg Intake: IV 80 .9 80 Intake, IV Titration 183.000 100 Amount Furosemide 100 mg In 183.000 100 Sodium Chloride 0.9% 90 ml @ 10 MG/HR 10 mls/hr IV .Q10H [facility] Rx#: [id number] Oral 660 120 240 Output: Urine 725 Other: Voiding Method Toilet Toilet # Voids 2 # Bowel Movements 2 0 - Exam - Constitutional General appearance: average body habitus, cooperative, disheveled, mild distress - EENT Eyes: PERRLA Ears: bilateral: normal - Neck Neck: normal ROM Carotids: bilateral: upstroke normal - Respiratory Respiratory: bilateral: diminished, rales - Cardiovascular Rhythm: regular Heart sounds: normal: S1, S2 - Gastrointestinal General gastrointestinal: normal bowel sounds, soft - Musculoskeletal Musculoskeletal: gait normal, generalized weakness - Labs CBC & Chem 7: 03/28/20 06:48 03/28/20 06:48 Labs: Abnormal Lab Results - Last 24 Hours (Table) 03/27/20 03/27/20 03/27/20 Range/Units 12:10 16:59 21:10 RBC (3.80-5.40) m/uL Hgb (11.4-16.0) gm/dL Hct (34.0-46.0) % RDW (11.5-15.5) % Sodium (137-145) mmol/L BUN (7-17) mg/dL Creatinine (0.52-1.04) mg/dL Glucose (74-99) mg/dL POC Glucose (mg/dL) 217 H 209 H 270 H (75-99) mg/dL Total Protein (6.3-8.2) g/dL Albumin (3.5-5.0) g/dL 03/28/20 03/28/20 03/28/20 Range/Units 06:39 06:48 06:48 RBC 3.62 L (3.80-5.40) m/uL Hgb 11.1 L (11.4-16.0) gm/dL Hct 33.3 L (34.0-46.0) % RDW 15.6 H (11.5-15.5) % Sodium 136 L (137-145) mmol/L BUN 94 H (7-17) mg/dL Creatinine 1.55 H (0.52-1.04) mg/dL Glucose 182 H (74-99) mg/dL POC Glucose (mg/dL) 181 H (75-99) mg/dL Total Protein 5.4 L (6.3-8.2) g/dL Albumin 3.3 L (3.5-5.0) g/dL Assessment and Plan Assessment: Acute on chronic hypoxic respiratory failure Acute exacerbation of acute on chronic systolic heart failure Pulmonary hypertension and severe tricuspid regurgitation Bilateral basal atelectasis pneumonia less likely okay to observe her off of antibiotics COPD with acute exacerbation Acute kidney injury Type 2 diabetes mellitus Dyslipidemia Hypertension hypertensive 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
--- NOTE | 2020-03-28 11:12 | P.PN ---
Subjective Progress Note Date: 03/28/20 Principal diagnosis: Acute and chronic hypoxic respiratory failure, acute on chronic heart failure, acute kidney injury, hyponatremia, type 2 diabetes, chronic kidney disease. This is an 84-year-old female patient of Dr. 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 Patient was recently seen at [facility] which time she was treated for pleural effusions status post bilateral thoracentesis. Patient is known to have severe tricuspid regurgitation. Patient was recently started on methylphenidate 20 mg twice daily. She went to [facility] but had a panic attack and returned here in [facility] within 2 hours. Also [facility] did not have BiPAP which she required. She was stabilized and then discharged back to [facility]. Patient was then doing well until yesterday when she developed increasing shortness of breath. He also had increasing lower extremity edema. Denies having any chest pain. No lightheadedness or dizziness. Patient presented to [facility] emergency center for evaluation. EKG was sinus rhythm without acute ST changes. Chest x-ray showed bilateral infiltrates with component of pulmonary edema. ProBNP 65082. Lactic acid 2.2 with repeat of 1.3. Sodium 127, potassium 5.3, chloride 93, CO2 23, B UN 46 and creatinine 1.54. Blood sugar 292. Phosphorus 7.1, magnesium 2.0. LDH 862. Troponin 0.075. C-reactive protein 44.8. Coronavirus PCR not detected. Patient has been started on IV Lasix 40 mg twice daily, consults requested with pulmonary medicine, cardiology and nephrology. 03/23 patient examined bedside. Continues to be on 15 L of nasal cannula high flow. Chest x-ray repeated today shows mild atelectasis with bilateral infiltrate concerning for pneumonia with pulmonary edema. Cardiology evaluated the patient and recommended echocardiogram currently pending. We'll continue with Lasix 40 mg IV twice a day. Continue antibiotics including vancomycin and levofloxacin. Mycoplasma and Legionella ordered. Chest x-ray shows only small pleural effusion of benefit for thoracentesis at this point. Continue albuterol and Pulmicort. 03/25 patient examined bedside. Is comfortable shortness of breath is improved. Continues to be on 15 L high flow. We will plan to transition down to 10 L and was for hypoxia. Patient continues to be on Lasix drip per nephrology recommendation. Urine output was 1.4 L in the past 24 hours. evaluated suggested sodium 132 BUN 65 creatinine 1.75 glucose 227 continue Solu-Medrol 40 IV every 12 continue insulin sliding scale 03/26 patient continues to be on 10 L oxygen high flow. Continue Lasix drip for next 24 hours per nephrology. Monitor I&O's. Continue Calix catheter for monitoring of urine output. On evaluation today BUN is trending up to 73 creatinine 1.6 hemoglobin pending. Blood sugar this morning to 2 49. We'll hold vancomycin continue levofloxacin. Repeat pro calcitonin. We will add patient on Lantus 5 units twice a day while patient on Solu-Medrol 03/27: Patient is doing much better she still on BiPAP using like less oxygen the high flow from 10 L when down to 5 so far. Blood sugars under control currently. Patient is diuresing very well with current diuretics, her kidney function remained good so far. Patient will titrate PTOT will remove Calix catheter and prepare hopefully for going back to [facility] on Sunday. 03/28: Ptient is doing well she is off BiPAP except through the night, she s own o 5 L of O2 at this point, still on IV Lasix 10 milligram an hour with switch Lasix to 2 IV push 40 mg every 8 hours for now awaiting for discharged to [facility] tomorrow or day after tomorrow if she is doing well with the current management. Objective - Vital Signs Vital signs: Vital Signs Temp 97.2 F L 03/28/20 08:00 Pulse 74 03/28/20 08:00 Resp 18 03/28/20 08:00 BP 125/48 03/28/20 08:00 Pulse Ox 93 L 03/28/20 08:00 Intake & Output 03/27/20 03/28/20 03/28/20 18:59 06:59 18:59 Intake Total 843.000 220 320 Output Total 725 Balance 843.000 -505 320 Weight 61.5 kg 44.5 kg Intake: IV 80 .9 80 Intake, IV Titration 183.000 100 Amount Furosemide 100 mg In 183.000 100 Sodium Chloride 0.9% 90 ml @ 10 MG/HR 10 mls/hr IV .Q10H [facility] Rx#: [id number] Oral 660 120 240 Output: Urine 725 Other: Voiding Method Toilet Toilet # Voids 2 # Bowel Movements 2 0 - Exam REVIEW OF SYSTEMS Constitutional: No fever, no chills, no night sweats. No weight change. Reports weakness, reports fatigue. No daytime sleepiness. EENT: No headache. No blurred vision or double vision, no loss of vision. No loss of Hearing, no ringing in the ears, no dizziness. No nasal drainage or congestion. No epistaxis. No sore throat. Lungs: Reports shortness of breath, cough, no sputum production. No wheezing. Cardiovascular: No chest pain, reports lower extremity edema. No palpitations. No paroxysmal nocturnal dyspnea. No orthopnea. No lightheadedness or dizziness. No syncopal episodes. Abdominal: No abdominal pain. No nausea, vomiting. No diarrhea. No constipation. No bloody or tarry stools reports loss of appetite. Genitourinary: No dysuria, increased frequency, urgency. No urinary retention. Musculoskeletal: No myalgias. No muscle weakness, no gait dysfunction, no frequent falls. No back pain. No neck pain. Integumentary: No wounds, no lesions. No rash or pruritus. No unusual bruising . No change in hair or nails. Neurologic: No aphasia. No facial droop. No change in mentation. No head injury. No headache. No paralysis. No paresthesia. Psychiatric: No depression. No anxiety. No mood swings. Endocrine: No abnormal blood sugars. No weight change. No excessive sweating or thirst. No cold intolerance. PHYSICAL EXAMINATION Gen: This is an 84-year-old female. Appears drowsy HEENT: Head is atraumatic, normocephalic. Pupils equal, round. Sclerae is anicteric. Patient is on BiPAP. NECK: Supple. No JVD. No lymphadenopathy. No thyromegaly. LUNGS: Decreased air entry bilaterally. No wheezes or rhonchi. HEART: Regular rate and rhythm. Systolic murmur. ABDOMEN: Soft. Bowel sounds are present. No masses. No tenderness. EXTREMITIES: 1+ bilateral pedal edema. No calf tenderness. NEUROLOGICAL: Patient is awake, alert and oriented x3. Cranial nerves 2 through 12 are grossly intact - Labs CBC & Chem 7: 03/28/20 06:48 03/28/20 06:48 Labs: Abnormal Lab Results - Last 24 Hours (Table) 03/27/20 03/27/20 03/27/20 Range/Units 12:10 16:59 21:10 RBC (3.80-5.40) m/uL Hgb (11.4-16.0) gm/dL Hct (34.0-46.0) % RDW (11.5-15.5) % Sodium (137-145) mmol/L BUN (7-17) mg/dL Creatinine (0.52-1.04) mg/dL Glucose (74-99) mg/dL POC Glucose (mg/dL) 217 H 209 H 270 H (75-99) mg/dL Total Protein (6.3-8.2) g/dL Albumin (3.5-5.0) g/dL 03/28/20 03/28/20 03/28/20 Range/Units 06:39 06:48 06:48 RBC 3.62 L (3.80-5.40) m/uL Hgb 11.1 L (11.4-16.0) gm/dL Hct 33.3 L (34.0-46.0) % RDW 15.6 H (11.5-15.5) % Sodium 136 L (137-145) mmol/L BUN 94 H (7-17) mg/dL Creatinine 1.55 H (0.52-1.04) mg/dL Glucose 182 H (74-99) mg/dL POC Glucose (mg/dL) 181 H (75-99) mg/dL Total Protein 5.4 L (6.3-8.2) g/dL Albumin 3.3 L (3.5-5.0) g/dL Assessment and Plan Assessment: 1. Acute on chronic hypoxic respiratory failure requiring BiPAP. Consult pulmonary medicine. Continue oxygen therapy with BiPAP. Continue DuoNeb treatments 4 times daily and as needed, Pulmicort 0.5 mg twice daily and repeat chest x-ray suggestive of bibasilar pneumonia and finding of CHF with minimal pleural effusions. Continue Lasix. Pro-calcitonin mildly elevated, sputum culture. Repeat pro-calcitonin. Hold vancomycin continue levofloxacin. Switch patient to IV Lasix 40 mg IV every 8. 2. Acute on chronic heart failure, possible diastolic Echocardiogram ordered. Lasix was switched to IV push was switched to oral Lasix by Sunday continue to monitor daily weight and intake and output with urine output mostly. Lasix IV drip will be switched to IV bolus every 8 hours 3. Acute kidney injury with chronic kidney disease stage III. Remove Calix catheter continue to watch her urine output. 4. Hypovolemic Hyponatremia. Sodium is much better continue low fluid restriction but was titrated lipid more. 5. Diabetes mellitus type 2, uncontrolled with hyperglycemia. Continue insulin sliding scale and is initiated at 5 mg twice a day 6. Hypertension. Continue amlodipine 10 mg daily, atenolol 100 mg daily, Catapres 0.05 mg twice daily, hydralazine 100 mg twice daily. 7. Hyperlipidemia. Continue Lipitor 20 mg at bedtime 8. History of CVA with right-sided weakness. Continue aspirin 81 mg daily, Lipitor 20 mg at bedtime for secondary prevention 9. History of coronary artery disease. Continue Imdur 30 mg daily. 10. Generalized anxiety disorder. Xanax on hold. Lorazepam 0.5 mg every 8 hours as needed for anxiety 11. GI prophylaxis. Protonix. Discharge planning: Possibly back to [facility] on Sunday or Sunday.
--- NOTE | 2020-03-28 11:36 | P.PN ---
Subjective Progress Note Date: 03/28/20 This is a 84-year-old female admitted to the hospital with symptoms of worsening shortness of breath, was diagnosed with acute exacerbation of diastolic congestive heart failure and possibly underlying pneumonia. Continues at this time to be on a Lasix drip at 10 mg per hour. Blood pressure 128/60 with a heart rate in the 60s, 92% on 10 L high flow cannula. Sodium 135, potassium 4.0, BUN 83, creatinine 1.5, magnesium 2.4. No weight documented this morning. 03/19/2020 Patient seen and examined this morning, sitting up in the chair, overall doing significantly better. She states she was up several times to urinate, her edema is almost completely gone. Blood pressure 124/48 heart rate in the 70s 93% on 10 L high flow. White blood cell count 6.4, hemoglobin 11.1, platelet count 192. Sodium 136, potassium 3.8, BUN 94, creatinine 1.5. Blood culture pending. Objective - Vital Signs Vital signs: Vital Signs Temp 97.2 F L 03/28/20 08:00 Pulse 70 03/28/20 11:33 Resp 18 03/28/20 08:00 BP 125/48 03/28/20 08:00 Pulse Ox 93 L 03/28/20 08:00 Intake & Output 03/27/20 03/28/20 03/28/20 18:59 06:59 18:59 Intake Total 843.000 220 320 Output Total 725 Balance 843.000 -505 320 Weight 61.5 kg 44.5 kg Intake: IV 80 .9 80 Intake, IV Titration 183.000 100 Amount Furosemide 100 mg In 183.000 100 Sodium Chloride 0.9% 90 ml @ 10 MG/HR 10 mls/hr IV .Q10H [facility] Rx#: [id number] Oral 660 120 240 Output: Urine 725 Other: Voiding Method Toilet Toilet # Voids 2 # Bowel Movements 2 0 - Exam PHYSICAL EXAMINATION: GENERAL: 84-year-old female in no acute distress at the time of my examination HEENT: Head is atraumatic, normocephalic. Pupils equal, round. Sclera anicteric. Conjunctiva are clear. Mucous membranes of the mouth are moist. Neck is supple. There is no elevated jugular venous pressure. No carotid bruit is heard. HEART EXAMINATION: Heart S1 S2 1 systolic murmur is heard CHEST EXAMINATION: Lungs reveal diminished air entry to the bases bilaterally ABDOMEN: Soft, nontender. Bowel sounds are heard. No organomegaly noted. EXTREMITIES: 2+ peripheral pulses with no evidence of peripheral edema and no calf tenderness noted. NEUROLOGIC patient is awake, alert and oriented 2 . . - Labs CBC & Chem 7: 03/28/20 06:48 03/28/20 06:48 Labs: Abnormal Lab Results - Last 24 Hours (Table) 03/27/20 03/27/20 03/27/20 Range/Units 12:10 16:59 21:10 RBC (3.80-5.40) m/uL Hgb (11.4-16.0) gm/dL Hct (34.0-46.0) % RDW (11.5-15.5) % Sodium (137-145) mmol/L BUN (7-17) mg/dL Creatinine (0.52-1.04) mg/dL Glucose (74-99) mg/dL POC Glucose (mg/dL) 217 H 209 H 270 H (75-99) mg/dL Total Protein (6.3-8.2) g/dL Albumin (3.5-5.0) g/dL 03/28/20 03/28/20 03/28/20 Range/Units 06:39 06:48 06:48 RBC 3.62 L (3.80-5.40) m/uL Hgb 11.1 L (11.4-16.0) gm/dL Hct 33.3 L (34.0-46.0) % RDW 15.6 H (11.5-15.5) % Sodium 136 L (137-145) mmol/L BUN 94 H (7-17) mg/dL Creatinine 1.55 H (0.52-1.04) mg/dL Glucose 182 H (74-99) mg/dL POC Glucose (mg/dL) 181 H (75-99) mg/dL Total Protein 5.4 L (6.3-8.2) g/dL Albumin 3.3 L (3.5-5.0) g/dL Assessment and Plan Plan: Assessment and plan #1 diastolic congestive heart failure acute on chronic #2 possible pneumonia #3 acute on chronic kidney disease #4 hypertension #5 hyperlipidemia #6 history of CVA with right-sided weakness #7 diabetes Plan We will continue current Lasix drip as per nephrology's recommendation. Continue to monitor the patient's intake and output along with daily weights. Patient's echocardiogram with Doppler study revealed an ejection fraction of 55- 60%, severe aortic regurgitation with moderate aortic stenosis noted, severe mitral regurgitation, suggestion of possible vegetation, moderate tricuspid regurg, moderate to severe pulmonary hypertension. We will review the blood culture obtained, if negative, no further evaluation regarding possible vegetation at this time. Further recommendations to follow. DNP note has been reviewed, I agree with a documented findings and plan of care. Patient was seen and examined.
[2020-03-28 11:39] LABS: Glucose,Whole Blood 263 mg/dL (75-99)
[2020-03-28] MEDS: predniSONE 10 MG TAB PO SCH (12:04)
--- NOTE | 2020-03-28 13:24 | PN ---
PROGRESS NOTE The patient is seen for followup for acute kidney injury. The patient is comfortable. She denies any significant complaints. She is maintained on Lasix drip for volume overload. Renal function has been stable with creatinine down to 1.5 mg/dL from peak of 1.8. The patient states her respiratory status has improved. She denies any chest pains or shortness of breath. PHYSICAL EXAMINATION: Blood pressure was 121/46. Heart rate 68 per minute. She is afebrile. Examination of the heart S1, S2. Examination of the lungs, decreased breath sounds at bases. Abdomen is soft, nontender. Examination of lower extremities shows no evidence of edema. 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 LAB: Show sodium 136, potassium 3.8, chloride 101, BUN 94, serum creatinine 1.5 mg/dL. ASSESSMENT: 1. Acute kidney injury mostly cardiorenal currently improved. Agree with discontinuation of Lasix drip and switching to IV push Lasix. 2. Volume overload, currently improved. 3. Congestive heart failure, acute on top of chronic, mostly diastolic. 4. Severe aortic regurgitation with moderate aortic stenosis and severe mitral valve regurg and moderate to severe pulmonary hypertension. 5. Pneumonia, maintained on antibiotics. PLAN: Continue with IV push Lasix, repeat labs in a.m. Monitor electrolytes. MMODL / IJN: [id number] /
[2020-03-28] MEDS: FUROSEMIDE 10 MG/ML 4 ML VIAL IV SCH ×2 (15:15→23:56)
[2020-03-28 17:12] LABS: Glucose,Whole Blood 303 mg/dL (75-99)
[2020-03-28 20:10] LABS: Glucose,Whole Blood 258 mg/dL (75-99)
[2020-03-28] MEDS: ATORVASTATIN 20 MG TAB PO SCH (21:30)
[2020-03-29 06:08] LABS: Glucose,Whole Blood 191 mg/dL (75-99)
[2020-03-29] MEDS: INSULIN ASPART (NovoLOG) 100 UNIT/ML VIAL SQ SCH ×4 (06:39→21:00)
[2020-03-29] MEDS: PANTOPRAZOLE 40 MG TABLET PO SCH (06:39)
[2020-03-29] MEDS: INSULIN DETEMIR (LEVEMIR) 100 UNIT/ML SYR SQ SCH ×2 (06:39→21:00)
[2020-03-29] MEDS: SENNOSIDES-DOCUSATE SODIUM 1 EACH TAB PO SCH ×2 (06:39→21:00)
[2020-03-29] MEDS: MIDODRINE 5 MG TAB PO SCH ×3 (06:40→16:46)
[2020-03-29] MEDS: IPRATROPIUM-ALBUTEROL 3 ML NEB INHALATION SCH ×4 (07:23→20:12)
[2020-03-29] MEDS: BUDESONIDE 0.5 MG/2 ML NEBU INHALATION SCH ×2 (07:23→20:12)
[2020-03-29 07:27] LABS: HCT 33.9 % (34.0-46.0); HGB 11.3 gm/dL (11.4-16.0); MCH 30.7 pg (25.0-35.0); MCHC 33.3 g/dL (31.0-37.0); MCV 92.3 fL (80.0-100.0); Mean Platelet Volume 7.9; Platelet Count 195 k/uL (150-450); RBC 3.67 m/uL (3.80-5.40); RDW 15.5 % (11.5-15.5); WBC 6.7 k/uL (3.8-10.6)
[2020-03-29 07:45] LABS: Albumin 3.2 g/dL (3.5-5.0); Calcium 8.6 mg/dL (8.4-10.2); Potassium 3.8 mmol/L (3.5-5.1); Total Bilirubin 0.7 mg/dL (0.2-1.3); Total Protein 5.2 g/dL (6.3-8.2)
[2020-03-29] MEDS: HEPARIN SODIUM,PORCINE 5,000 UNIT/ML 1 ML VIAL SQ SCH ×2 (08:23→21:00)
[2020-03-29] MEDS: FUROSEMIDE 10 MG/ML 4 ML VIAL IV SCH ×2 (08:24→16:46)
[2020-03-29] MEDS: ASPIRIN 81 MG PO SCH (08:24)
[2020-03-29] MEDS: hydrALAZINE HCL 50 MG TAB PO SCH ×2 (08:24→20:59)
[2020-03-29] MEDS: cloNIDine HCL 0.1 MG TAB PO SCH ×2 (08:24→20:59)
[2020-03-29] MEDS: amLODIPine 5 MG TAB PO SCH ×2 (08:24→12:19)
[2020-03-29] MEDS: CITALOPRAM HYDROBROMIDE 20 MG TAB PO SCH (08:24)
[2020-03-29] MEDS: predniSONE 10 MG TAB PO SCH (08:24)
[2020-03-29] MEDS: atenoloL 50 MG TAB PO SCH (08:25)
[2020-03-29] MEDS: ISOSORBIDE MONONITRATE ER 30 MG TAB.ER.24H PO SCH (08:25)
[2020-03-29] MEDS: NYSTATIN 100,000 UNIT/ML SUSP 500,000 UNIT/5 ML CUP PO SCH ×4 (08:27→21:00)
--- NOTE | 2020-03-29 10:57 | P.PN ---
Subjective Progress Note Date: 03/29/20 Principal diagnosis: Acute on chronic hypoxic respiratory failure Acute exacerbation of acute on chronic systolic heart failure Pulmonary hypertension and severe tricuspid regurgitation Bilateral pneumonia Acute kidney injury Type 2 diabetes mellitus Dyslipidemia Hypertension hypertensive cardiovascular disease CVA prior with right-sided weakness 03/29/2020, patient seen eval examined during the rounds labs reviewed medications reviewed, patient remains afebrile, hemodynamically stable, FiO2 is gradually being tapered down to 6 L sats are 98-99%, BUN/creatinine no s tabilized 95 and 1.47, patient is off of Lasix strip 03/28/2020, patient seen eval examined during the rounds labs reviewed medications reviewed, patient remains on 10 L high flow oxygen, remains afeb rile, oxygen saturation are 93%, hemodynamic status stable, last chest x-ray performed yesterday reviewed continue to have CHF-like finding along with pulmonary valve is congestion and bilateral pleural effusion with basal atelectasis slowly improving, labs reviewed the ER and creatinine continued to go up to 94 and 1.55 month patient monitor off of antibiotics 03/26/2020, patient seen eval examined during the rounds labs reviewed medications reviewed, respiratory status continued to improve, now down to 10 L high flow oxygen, patient continued to use BiPAP machine at nighttime, BUN/creatinine remains stable 73 and 1.6 03/25/2020, patient seen eval reexamined during the rounds labs reviewed medications reviewed, remains on 15 L high flow oxygen, comfortable oxygen saturation is in low to mid 90s, remains on IV Lasix, creatinine improved to 1.75, vancomycin level is in therapeutic range 15.7, patient did use the BiPAP machine at nighttime for almost 6-7 hours 03/24/2020, patient seen eval reexamined, she has been on BiPAP overnight 01/09 with 80% oxygen switched to high flow oxygen 15 L oxygen saturations 94% she feels better today she is being diuresed renal service has recommended to start Lasix strip, patient remains on the IV antibiotics along with bronchodilator, we'll start some steroids as well This is a 84-year-old female seen evaluated examined overall a poor historian, data mostly obtained from the chart, patient is a resident of the [facility] on chronic home oxygen also on BiPAP support, there are some issues with activity of BiPAP at [facility], she developed progressive shortness of breath and admitted into the hospital, recently she was hospitalized at [facility] she was found to have severe tricuspid regurgitation status post bilateral pleural effusion and thoracentesis, her baseline problems are significant for chronic systolic heart failure type 2 diabetes mellitus hypertension hypertensive cardiovascular disease dyslipidemia she has a 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, on arrival she was very hypoxic with bilateral infiltrate on the x-ray she was treated with broad-spectrum antibiotics currently on vancomycin and Levaquin also on BiPAP 01/09 is 70% oxygen, currently patient is on the 15 L high flow oxygen awake and alert, denies any chest pain does have ongoing shortness of breath, chest x-ray shows bilateral CHF-like changes along with bilateral pneumonia cannot be excluded with basal atelectasis small pleural effusion Objective - Vital Signs Vital signs: Vital Signs Temp 97.5 F L 03/29/20 08:00 Pulse 69 03/29/20 08:00 Resp 18 03/29/20 08:00 BP 127/50 03/29/20 08:00 Pulse Ox 99 03/29/20 08:43 Intake & Output 03/28/20 03/29/20 03/29/20 18:59 06:59 18:59 Intake Total 800 40 246 Output Total 400 400 Balance 400 -360 246 Weight 46.2 kg Intake: IV 80 40 10 .9 80 Invasive Line 5 20 10 Invasive Line 6 20 Oral 720 236 Output: Urine 400 400 Other: Voiding Method Toilet # Voids 1 # Bowel Movements 0 1 - Exam - Constitutional General appearance: average body habitus, cooperative, disheveled, mild distress - EENT Eyes: PERRLA Ears: bilateral: normal - Neck Neck: normal ROM Carotids: bilateral: upstroke normal - Respiratory Respiratory: bilateral: diminished, rales - Cardiovascular Rhythm: regular Heart sounds: normal: S1, S2 - Gastrointestinal General gastrointestinal: normal bowel sounds, soft - Musculoskeletal Musculoskeletal: gait normal, generalized weakness - Labs CBC & Chem 7: 03/29/20 06:57 03/29/20 06:57 Labs: Abnormal Lab Results - Last 24 Hours (Table) 03/28/20 03/28/20 03/28/20 Range/Units 11:37 17:04 20:09 RBC (3.80-5.40) m/uL Hgb (11.4-16.0) gm/dL Hct (34.0-46.0) % BUN (7-17) mg/dL Creatinine (0.52-1.04) mg/dL Glucose (74-99) mg/dL POC Glucose (mg/dL) 263 H 303 H 258 H (75-99) mg/dL Total Protein (6.3-8.2) g/dL Albumin (3.5-5.0) g/dL 03/29/20 03/29/20 03/29/20 Range/Units 06:07 06:57 06:57 RBC 3.67 L (3.80-5.40) m/uL Hgb 11.3 L (11.4-16.0) gm/dL Hct 33.9 L (34.0-46.0) % BUN 95 H (7-17) mg/dL Creatinine 1.47 H (0.52-1.04) mg/dL Glucose 165 H (74-99) mg/dL POC Glucose (mg/dL) 191 H (75-99) mg/dL Total Protein 5.2 L (6.3-8.2) g/dL Albumin 3.2 L (3.5-5.0) g/dL Microbiology - Last 24 Hours (Table) 03/27/20 11:31 Blood Culture - Preliminary Blood No Growth after 24 hours Assessment and Plan Assessment: Acute on chronic hypoxic respiratory failure Acute exacerbation of acute on chronic systolic heart failure Pulmonary hypertension and severe tricuspid regurgitation Bilateral basal atelectasis pneumonia less likely okay to observe her off of antibiotics COPD with acute exacerbation Acute kidney injury Type 2 diabetes mellitus Dyslipidemia Hypertension hypertensive 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
--- NOTE | 2020-03-29 11:19 | P.PN ---
Subjective Progress Note Date: 03/29/20 Principal diagnosis: Acute and chronic hypoxic respiratory failure, acute on chronic heart failure, acute kidney injury, hyponatremia, type 2 diabetes, chronic kidney disease. This is an 84-year-old female patient of Dr. 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 Patient was recently seen at [facility] which time she was treated for pleural effusions status post bilateral thoracentesis. Patient is known to have severe tricuspid regurgitation. Patient was recently started on methylphenidate 20 mg twice daily. She went to [facility] but had a panic attack and returned here in Medical Center within [address] [facility] did not have BiPAP which she required. She was stabilized and then discharged back to [facility]. Patient was then doing well until yesterday when she developed increasing shortness of breath. He also had increasing lower extremity edema. Denies having any chest pain. No lightheadedness or dizziness. Patient presented to [facility] emergency center for evaluation. EKG was sinus rhythm without acute ST changes. Chest x-ray showed bilateral infiltrates with component of pulmonary edema. ProBNP 31647. Lactic acid 2.2 with repeat of 1.3. Sodium 127, potassium 5.3, chloride 93, CO2 23, B UN 46 and creatinine 1.54. Blood sugar 292. Phosphorus 7.1, magnesium 2.0. LDH 862. Troponin 0.075. C-reactive protein 44.8. Coronavirus PCR not detected. Patient has been started on IV Lasix 40 mg twice daily, consults requested with pulmonary medicine, cardiology and nephrology. 03/23 patient examined bedside. Continues to be on 15 L of nasal cannula high flow. Chest x-ray repeated today shows mild atelectasis with bilateral infiltrate concerning for pneumonia with pulmonary edema. Cardiology evaluated the patient and recommended echocardiogram currently pending. We'll continue with Lasix 40 mg IV twice a day. Continue antibiotics including vancomycin and levofloxacin. Mycoplasma and Legionella ordered. Chest x-ray shows only small pleural effusion of benefit for thoracentesis at this point. Continue albuterol and Pulmicort. 03/25 patient examined bedside. Is comfortable shortness of breath is improved. Continues to be on 15 L high flow. We will plan to transition down to 10 L and was for hypoxia. Patient continues to be on Lasix drip per nephrology recommendation. Urine output was 1.4 L in the past 24 hours. evaluated suggested sodium 132 BUN 65 creatinine 1.75 glucose 227 continue Solu-Medrol 40 IV every 12 continue insulin sliding scale 03/26 patient continues to be on 10 L oxygen high flow. Continue Lasix drip for next 24 hours per nephrology. Monitor I&O's. Continue Calix catheter for monitoring of urine output. On evaluation today BUN is trending up to 73 creatinine 1.6 hemoglobin pending. Blood sugar this morning to 2 49. We'll hold vancomycin continue levofloxacin. Repeat pro calcitonin. We will add patient on Lantus 5 units twice a day while patient on Solu-Medrol 03/27: Patient is doing much better she still on BiPAP using like less oxygen the high flow from 10 L when down to 5 so far. Blood sugars under control currently. Patient is diuresing very well with current diuretics, her kidney function remained good so far. Patient will titrate PTOT will remove Calix catheter and prepare hopefully for going back to [facility] on Sunday. 03/28: Ptient is doing well she is off BiPAP except through the night, she s own o 5 L of O2 at this point, still on IV Lasix 10 milligram an hour with switch Lasix to 2 IV push 40 mg every 8 hours for now awaiting for discharged to [facility] tomorrow or day after tomorrow if she is doing well with the current management. 03/29: Patient is doing better she is on BiPAP only at night her oxygen was down to 8 L from 10 early and was switched to IV push Lasix 40 mg 3 times a day which seems to do better with it so far, increase mobility, Calix cath is out, continue PTOT and probably plan for discharged to [facility] as early as tomorrow. Objective - Vital Signs Vital signs: Vital Signs Temp 97.5 F L 03/29/20 08:00 Pulse 60 03/29/20 11:12 Resp 18 03/29/20 08:00 BP 127/50 03/29/20 08:00 Pulse Ox 99 02/22/21 08:43 Intake & Output 03/28/20 03/29/20 03/29/20 18:59 06:59 18:59 Intake Total 800 40 246 Output Total 400 400 Balance 400 -360 246 Weight 46.2 kg Intake: IV 80 40 10 .9 80 Invasive Line 5 20 10 Invasive Line 6 20 Oral 720 236 Output: Urine 400 400 Other: Voiding Method Toilet # Voids 1 # Bowel Movements 0 1 - Exam REVIEW OF SYSTEMS Constitutional: No fever, no chills, no night sweats. No weight change. Reports weakness, reports fatigue. No daytime sleepiness. EENT: No headache. No blurred vision or double vision, no loss of vision. No loss of Hearing, no ringing in the ears, no dizziness. No nasal drainage or congestion. No epistaxis. No sore throat. Lungs: Reports shortness of breath, cough, no sputum production. No wheezing. Cardiovascular: No chest pain, reports lower extremity edema. No palpitations. No paroxysmal nocturnal dyspnea. No orthopnea. No lightheadedness or dizziness. No syncopal episodes. Abdominal: No abdominal pain. No nausea, vomiting. No diarrhea. No constipation. No bloody or tarry stools reports loss of appetite. Genitourinary: No dysuria, increased frequency, urgency. No urinary retention. Musculoskeletal: No myalgias. No muscle weakness, no gait dysfunction, no frequent falls. No back pain. No neck pain. Integumentary: No wounds, no lesions. No rash or pruritus. No unusual bruising. No change in hair or nails. Neurologic: No aphasia. No facial droop. No change in mentation. No head injury. No headache. No paralysis. No paresthesia. Psychiatric: No depression. No anxiety. No mood swings. Endocrine: No abnormal blood sugars. No weight change. No excessive sweating or thirst. No cold intolerance. PHYSICAL EXAMINATION Gen: This is an 84-year-old female. Appears drowsy HEENT: Head is atraumatic, normocephalic. Pupils equal, round. Sclerae is anicteric. Patient is on BiPAP. NECK: Supple. No JVD. No lymphadenopathy. No thyromegaly. LUNGS: Decreased air entry bilaterally. No wheezes or rhonchi. HEART: Regular rate and rhythm. Systolic murmur. ABDOMEN: Soft. Bowel sounds are present. No masses. No tenderness. EXTREMITIES: 1+ bilateral pedal edema. No calf tenderness. NEUROLOGICAL: Patient is awake, alert and oriented x3. Cranial nerves 2 through 12 are grossly intact - Labs CBC & Chem 7: 03/29/20 06:57 03/29/20 06:57 Labs: Abnormal Lab Results - Last 24 Hours (Table) 03/28/20 03/28/20 03/28/20 Range/Units 11:37 17:04 20:09 RBC (3.80-5.40) m/uL Hgb (11.4-16.0) gm/dL Hct (34.0-46.0) % BUN (7-17) mg/dL Creatinine (0.52-1.04) mg/dL Glucose (74-99) mg/dL POC Glucose (mg/dL) 263 H 303 H 258 H (75-99) mg/dL Total Protein (6.3-8.2) g/dL Albumin (3.5-5.0) g/dL 03/29/20 03/29/20 03/29/20 Range/Units 06:07 06:57 06:57 RBC 3.67 L (3.80-5.40) m/uL Hgb 11.3 L (11.4-16.0) gm/dL Hct 33.9 L (34.0-46.0) % BUN 95 H (7-17) mg/dL Creatinine 1.47 H (0.52-1.04) mg/dL Glucose 165 H (74-99) mg/dL POC Glucose (mg/dL) 191 H (75-99) mg/dL Total Protein 5.2 L (6.3-8.2) g/dL Albumin 3.2 L (3.5-5.0) g/dL Microbiology - Last 24 Hours (Table) 03/27/20 11:31 Blood Culture - Preliminary Blood No Growth after 24 hours Assessment and Plan Assessment: 1. Acute on chronic hypoxic respiratory failure requiring BiPAP only at nighttime which try to wean her off to stay on O2 only at night, patient is down on O2 26-8 L today if her able to drop with low 5 by tomorrow she should be able to be discharged, in the meanwhile her Lasix was down to 40 mg IV every 8 hours and seems to do better with it as well. Titrate mobility today and prepare for rehab. 2. Acute on chronic heart failure, possible diastolic Echocardiogram ordered. Lasix was down to total of 120 mg IV will last which tomorrow to oral Lasix at 60 mg twice a day if she is doing well with it hour maximum 80 mg twice a day. 3. Acute kidney injury with chronic kidney disease stage III. Remove Calix catheter continue to watch her urine output. 4. Hypovolemic Hyponatremia. Sodium is much better continue low fluid restriction but was titrated lipid more. 5. Diabetes mellitus type 2, uncontrolled with hyperglycemia. Continue insulin sliding scale and is initiated at 5 mg twice a day 6. Hypertension. Continue amlodipine 10 mg daily, atenolol 100 mg daily, Catapres 0.05 mg twice daily, hydralazine 100 mg twice daily. 7. Hyperlipidemia. Continue Lipitor 20 mg at bedtime 8. History of CVA with right-sided weakness. Continue aspirin 81 mg daily, Lipitor 20 mg at bedtime for secondary prevention 9. History of coronary artery disease. Continue Imdur 30 mg daily. 10. Generalized anxiety disorder. Xanax on hold. Lorazepam 0.5 mg every 8 hours as needed for anxiety 11. GI prophylaxis. Protonix. Discharge planning: Possibly back to [facility] on tomorrow.
[2020-03-29 11:47] LABS: Glucose,Whole Blood 239 mg/dL (75-99)
--- NOTE | 2020-03-29 12:11 | P.PN ---
Subjective This is a pleasant 84-year-old female past medical history significant for diabetes mellitus, hypertension, dyslipidemia, chronic kidney disease, CVA, valvular heart disease status post aortic valve replacement. 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 He is seen and examined sitting up in a recliner in no acute distress. Overall she feels as though her symptoms have greatly improved since admission. She is maintained on IV Lasix infusion. 24 hour urine output is 800 mL's. Laboratory data reviewed, WBC 6.7, hemoglobin 11.9, platelets 195, sodium 138, potassium 3.8 and creatinine 1.47. Blood pressure 127/50 heart rate 80 maintaining oxygen saturation on high flow nasal cannula and afebrile. Blood cultures revealing no growth at 24 hours. GENERAL: Well-appearing, well-nourished and in no acute distress. NECK: Supple without JVD or thyromegaly. LUNGS: Breath sounds clear to auscultation bilaterally. Respiration equal and unlabored. No wheezes, rales or rhonchi. Diminished bilaterally. HEART: Regular rate and rhythm with systolic ejection murmur and aortic click, r ubs or gallops. S1 and S2 heard. EXTREMITIES: Normal range of motion, no edema. No clubbing or cyanosis. Peripheral pulses intact. ASSESSMENT Acute on chronic diastolic heart failure Valvular heart disease s/p aortic valve repair. Exact details unavailable Pulmonary hypertension Diabetes mellitus Chronic kidney disease Hypertension PLAN Recommend discontinuation of lasix infusion and transition to oral in preparation for discharge to ECF later today. No plan for PAPITO at this time. Nurse Practitioner note has been reviewed, I agree with a documented findings and plan of care. Patient was seen and examined. Objective - Vital Signs Vital signs: Vital Signs Temp 97.5 F L 03/29/20 08:00 Pulse 60 03/29/20 11:12 Resp 18 03/29/20 08:00 BP 127/50 03/29/20 08:00 Pulse Ox 99 03/29/20 08:43 Intake & Output 03/28/20 03/29/20 03/29/20 18:59 06:59 18:59 Intake Total 800 40 246 Output Total 400 400 Balance 400 -360 246 Weight 46.2 kg Intake: IV 80 40 10 .9 80 Invasive Line 5 20 10 Invasive Line 6 20 Oral 720 236 Output: Urine 400 400 Other: Voiding Method Toilet # Voids 1 # Bowel Movements 0 1 - Labs CBC & Chem 7: 03/29/20 06:57 03/29/20 06:57 Labs: Abnormal Lab Results - Last 24 Hours (Table) 03/28/20 03/28/20 03/29/20 Range/Units 17:04 20:09 06:07 RBC (3.80-5.40) m/uL Hgb (11.4-16.0) gm/dL Hct (34.0-46.0) % BUN (7-17) mg/dL Creatinine (0.52-1.04) mg/dL Glucose (74-99) mg/dL POC Glucose (mg/dL) 303 H 258 H 191 H (75-99) mg/dL Total Protein (6.3-8.2) g/dL Albumin (3.5-5.0) g/dL 03/29/20 03/29/20 Range/Units 06:57 06:57 RBC 3.67 L (3.80-5.40) m/uL Hgb 11.3 L (11.4-16.0) gm/dL Hct 33.9 L (34.0-46.0) % BUN 95 H (7-17) mg/dL Creatinine 1.47 H (0.52-1.04) mg/dL Glucose 165 H (74-99) mg/dL POC Glucose (mg/dL) (75-99) mg/dL Total Protein 5.2 L (6.3-8.2) g/dL Albumin 3.2 L (3.5-5.0) g/dL Microbiology - Last 24 Hours (Table) 03/27/20 11:31 Blood Culture - Preliminary Blood No Growth after 24 hours
[2020-03-29] MEDS: LEVOFLOXACIN 500 MG TAB PO SCH (12:17)
[2020-03-29] MEDS: CLOTRIMAZOLE/BETAMETH 1-0.05% CREAM 45 GM TUBE TOPICAL SCH ×2 (12:18→21:00)
--- NOTE | 2020-03-29 14:45 | PN ---
PROGRESS NOTE Patient is seen for followup for acute kidney injury. Renal function has been improving with creatinine now down to 1.47. Patient was being diuresed for significant volume overload. She was maintained on Lasix drip which is now discontinued and Lasix is currently at 40 mg IV q.8 hours. Urine output is well maintained. A 24 hour urine output not documented accurately. The patient had a Calix catheter which is now discontinued. PHYSICAL EXAMINATION: On examination today, she is comfortable. Blood pressure 135/43, heart rate 63 per minute. She is afebrile. Examination of the heart S1, S2. Examination of lungs decreased breath sounds at bases. Abdomen is soft, nontender. Examination of lower extremities shows no evidence of edema. 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 LAB: Show sodium 138, potassium 3.8, chloride 100, BUN 95, creatinine 1.47, hemoglobin 11.3 g/dL. ASSESSMENT: 1. Acute kidney injury mostly cardiorenal currently improved. 2. Congestive heart failure acute on top of chronic, mostly diastolic. 3. Pneumonia maintained on antibiotics and improving. 4. Volume overload, now improved. 5. Severe aortic regurgitation with moderate aortic stenosis, moderate to severe pulmonary hypertension and severe mitral valve regurg. PLAN: Can switch to p.o. Lasix tomorrow. Continue with the antibiotics. Chest x-ray from 2 days ago showed improving changes of CHF. MMODL / IJN: [id number] /
[2020-03-29 17:03] LABS: Glucose,Whole Blood 203 mg/dL (75-99)
[2020-03-29 20:20] LABS: Glucose,Whole Blood 218 mg/dL (75-99)
[2020-03-29] MEDS: ATORVASTATIN 20 MG TAB PO SCH (20:59)
[2020-03-30] MEDS: FUROSEMIDE 10 MG/ML 4 ML VIAL IV SCH ×3 (00:52→16:36)
[2020-03-30 06:24] LABS: Glucose,Whole Blood 131 mg/dL (75-99)
[2020-03-30] MEDS: INSULIN DETEMIR (LEVEMIR) 100 UNIT/ML SYR SQ SCH (07:12)
[2020-03-30] MEDS: PANTOPRAZOLE 40 MG TABLET PO SCH (07:12)
[2020-03-30] MEDS: INSULIN ASPART (NovoLOG) 100 UNIT/ML VIAL SQ SCH ×3 (07:12→16:36)
[2020-03-30] MEDS: SENNOSIDES-DOCUSATE SODIUM 1 EACH TAB PO SCH (07:12)
[2020-03-30] MEDS: MIDODRINE 5 MG TAB PO SCH ×3 (07:12→16:36)
[2020-03-30] MEDS: BUDESONIDE 0.5 MG/2 ML NEBU INHALATION SCH (08:23)
[2020-03-30] MEDS: IPRATROPIUM-ALBUTEROL 3 ML NEB INHALATION SCH ×3 (08:23→16:05)
[2020-03-30 09:03] VITALS: TEMP 98
[2020-03-30] MEDS: ASPIRIN 81 MG PO SCH (09:03)
[2020-03-30] MEDS: CITALOPRAM HYDROBROMIDE 20 MG TAB PO SCH (09:04)
[2020-03-30] MEDS: atenoloL 50 MG TAB PO SCH (09:04)
[2020-03-30] MEDS: cloNIDine HCL 0.1 MG TAB PO SCH (09:04)
[2020-03-30] MEDS: predniSONE 10 MG TAB PO SCH (09:04)
[2020-03-30] MEDS: amLODIPine 5 MG TAB PO SCH (09:04)
[2020-03-30] MEDS: hydrALAZINE HCL 50 MG TAB PO SCH (09:05)
[2020-03-30] MEDS: NYSTATIN 100,000 UNIT/ML SUSP 500,000 UNIT/5 ML CUP PO SCH ×2 (09:05→12:44)
[2020-03-30] MEDS: ISOSORBIDE MONONITRATE ER 30 MG TAB.ER.24H PO SCH (09:05)
[2020-03-30] MEDS: HEPARIN SODIUM,PORCINE 5,000 UNIT/ML 1 ML VIAL SQ SCH (09:05)
[2020-03-30] MEDS: CLOTRIMAZOLE/BETAMETH 1-0.05% CREAM 45 GM TUBE TOPICAL SCH (09:05)
--- NOTE | 2020-03-30 09:23 | P.DS ---
Providers Date of admission: 03/22/20 05:30 Attending physician: Kaz Roper Consults: 03/22/20 05:31 Consult Physician Routine Consulting Provider: Misael Avery Consult Reason/Comments: chf Do you want consulting provider notified?: Yes 03/22/20 12:01 Consult Physician Routine Consulting Provider: Gagandeep Parikh Consult Reason/Comments: ANDRES, hyponatremia, acute CHF Do you want consulting provider notified?: Yes 03/22/20 18:03 Consult Physician Routine Consulting Provider: Noe Mon Consult Reason/Comments: hypoxia, [facility] patient Do you want consulting provider notified?: Yes Primary care physician: [facility] Course: Primary diagnosis: Acute and chronic hypoxic respiratory failure, acute on chronic heart failure, acute kidney injury, hyponatremia, type 2 diabetes, chronic kidney disease. This is an 84-year-old female patient of Dr. Valente with past medical history of coronary artery disease, aortic valve stenosis status post r eplacement, chronic systolic heart failure, diabetes mellitus type 2, hypertension, hyperlipidemia, CVA with dysarthria and right-sided weakness, chronic hypoxic respiratory failure on home O2, chronic kidney disease stage III, generalized anxiety disorder. Patient was recently seen at [facility] which time she was treated for pleural effusions status post bilateral thoracentesis. Patient is known to have severe tricuspid regurgitation. Patient was recently started on methylphenidate 20 mg twice daily. She went to [facility] but had a panic attack and returned here in Medical Center within 2 hours. Also [facility] did not have BiPAP which she required. She was stabilized and then discharged back to [facility]. Patient was then doing well until yesterday when she developed increasing shortness of breath. He also had increasing lower extremity edema. Denies having any chest pain. No lightheadedness or dizziness. Patient presented to [facility] emergency center for evaluation. EKG was sinus rhythm without acute ST changes. Chest x-ray showed bilateral infiltrates with component of pulmonary edema. ProBNP 01760. Lactic acid 2.2 with repeat of 1.3. Sodium 127, potassium 5.3, chloride 93, CO2 23, BUN 46 and creatinine 1.54. Blood sugar 292. Phosphorus 7.1, magnesium 2.0. LDH 862. Troponin 0.075. C-reactive protein 44.8. Coronavirus PCR not detected. Patient has been started on IV Lasix 40 mg twice daily, consults requested with pulmonary medicine, cardiology and nephrology. 03/23 patient examined bedside. Continues to be on 15 L of nasal cannula high flow. Chest x-ray repeated today shows mild atelectasis with bilateral infiltrate concerning for pneumonia with pulmonary edema. Cardiology evaluated the patient and recommended echocardiogram currently pending. We'll continue with Lasix 40 mg IV twice a day. Continue antibiotics including vancomycin and levofloxacin. Mycoplasma and Legionella ordered. Chest x-ray shows only small pleural effusion of benefit for thoracentesis at this point. Continue albuterol and Pulmicort. 03/25 patient examined bedside. Is comfortable shortness of breath is improved. Continues to be on 15 L high flow. We will plan to transition down to 10 L and was for hypoxia. Patient continues to be on Lasix drip per nephrology recommendation. Urine output was 1.4 L in the past 24 hours. evaluated suggested sodium 132 BUN 65 creatinine 1.75 glucose 227 continue Solu-Medrol 40 IV every 12 continue insulin sliding scale 03/26 patient continues to be on 10 L oxygen high flow. Continue Lasix drip for next 24 hours per nephrology. Monitor I&O's. Continue Calix catheter for monitoring of urine output. On evaluation today BUN is trending up to 73 creatinine 1.6 hemoglobin pending. Blood sugar this morning to 2 49. We'll hold vancomycin continue levofloxacin. Repeat pro calcitonin. We will add patient on Lantus 5 units twice a day while patient on Solu-Medrol 03/27: Patient is doing much better she still on BiPAP using like less oxygen the high flow from 10 L when down to 5 so far. Blood sugars under control currently. Patient is diuresing very well with current diuretics, her kidney function remained good so far. Patient will titrate PTOT will remove Calix catheter and prepare hopefully for going back to [facility] on Sunday. 03/28: Ptient is doing well she is off BiPAP except through the night, she s own o 5 L of O2 at this point, still on IV Lasix 10 milligram an hour with switch Lasix to 2 IV push 40 mg every 8 hours for now awaiting for discharged to [facility] tomorrow or day after tomorrow if she is doing well with the current management. 03/29: Patient is doing better she is on BiPAP only at night her oxygen was down to 8 L from 10 early and was switched to IV push Lasix 40 mg 3 times a day which seems to do better with it so far, increase mobility, Calix cath is out, continue PTOT and probably plan for discharged to [facility] as early as tomorrow. Objective - Vital Signs Vital signs: Vital Signs Temp 97.5 F L 03/29/20 08:00 Pulse 60 03/29/20 11:12 Resp 18 03/29/20 08:00 BP 127/50 03/29/20 08:00 Pulse Ox 99 03/29/20 08:43 Intake & Output 03/28/20 03/29/20 03/29/20 18:59 06:59 18:59 Intake Total 800 40 246 Output Total 400 400 Balance 400 -360 246 Weight 46.2 kg Intake: IV 80 40 10 .9 80 Invasive Line 5 20 10 Invasive Line 6 20 Oral 720 236 Output: Urine 400 400 Other: Voiding Method Toilet # Voids 1 # Bowel Movements 0 1 - Exam REVIEW OF SYSTEMS Constitutional: No fever, no chills, no night sweats. No weight change. Reports weakness, reports fatigue. No daytime sleepiness. EENT: No headache. No blurred vision or double vision, no loss of vision. No loss of Hearing, no ringing in the ears, no dizziness. No nasal drainage or congestion. No epistaxis. No sore throat. Lungs: Reports shortness of breath, cough, no sputum production. No wheezing. Cardiovascular: No chest pain, reports lower extremity edema. No palpitations. No paroxysmal nocturnal dyspnea. No orthopnea. No lightheadedness or dizziness. No syncopal episodes. Abdominal: No abdominal pain. No nausea, vomiting. No diarrhea. No constipation. No bloody or tarry stools reports loss of appetite. Genitourinary: No dysuria, increased frequency, urgency. No urinary retention. Musculoskeletal: No myalgias. No muscle weakness, no gait dysfunction, no frequent falls. No back pain. No neck pain. Integumentary: No wounds, no lesions. No rash or pruritus. No unusual br uising. No change in hair or nails. Neurologic: No aphasia. No facial droop. No change in mentation. No head injury. No headache. No paralysis. No paresthesia. Psychiatric: No depression. No anxiety. No mood swings. Endocrine: No abnormal blood sugars. No weight change. No excessive sweating or thirst. No cold intolerance. PHYSICAL EXAMINATION Gen: This is an 84-year-old female. Appears drowsy HEENT: Head is atraumatic, normocephalic. Pupils equal, round. Sclerae is anicteric. Patient is on BiPAP. NECK: Supple. No JVD. No lymphadenopathy. No thyromegaly. LUNGS: Decreased air entry bilaterally. No wheezes or rhonchi. HEART: Regular rate and rhythm. Systolic murmur. ABDOMEN: Soft. Bowel sounds are present. No masses. No tenderness. EXTREMITIES: 1+ bilateral pedal edema. No calf tenderness. NEUROLOGICAL: Patient is awake, alert and oriented x3. Cranial nerves 2 through 12 are grossly intact - Labs CBC & Chem 7: 03/29/20 06:57 03/29/20 06:57 Labs: Abnormal Lab Results - Last 24 Hours (Table) 03/28/20 03/28/20 03/28/20 Range/Units 11:37 17:04 20:09 RBC (3.80-5.40) m/uL Hgb (11.4-16.0) gm/dL Hct (34.0-46.0) % BUN (7-17) mg/dL Creatinine (0.52-1.04) mg/dL Glucose (74-99) mg/dL POC Glucose (mg/dL) 263 H 303 H 258 H (75-99) mg/dL Total Protein (6.3-8.2) g/dL Albumin (3.5-5.0) g/dL 03/29/20 03/29/20 03/29/20 Range/Units 06:07 06:57 06:57 RBC 3.67 L (3.80-5.40) m/uL Hgb 11.3 L (11.4-16.0) gm/dL Hct 33.9 L (34.0-46.0) % BUN 95 H (7-17) mg/dL Creatinine 1.47 H (0.52-1.04) mg/dL Glucose 165 H (74-99) mg/dL POC Glucose (mg/dL) 191 H (75-99) mg/dL Total Protein 5.2 L (6.3-8.2) g/dL Albumin 3.2 L (3.5-5.0) g/dL Microbiology - Last 24 Hours (Table) 03/27/20 11:31 Blood Culture - Preliminary Blood No Growth after 24 hours Assessment and Plan Assessment: 1. Acute on chronic hypoxic respiratory failure requiring BiPAP only at nighttime which try to wean her off to stay on O2 only at night, patient is down on O2 26-8 L today if her able to drop with low 5 by tomorrow she should be able to be discharged, in the meanwhile her Lasix was down to 40 mg IV every 8 hours and seems to do better with it as well. Titrate mobility today and prepare for rehab. 2. Acute on chronic heart failure, possible diastolic Echocardiogram ordered. Lasix was down to total of 120 mg IV will last which tomorrow to oral Lasix at 60 mg twice a day if she is doing well with it hour maximum 80 mg twice a day. 3. Acute kidney injury with chronic kidney disease stage III. Remove Calix catheter continue to watch her urine output. 4. Hypovolemic Hyponatremia. Sodium is much better continue low fluid restriction but was titrated lipid more. 5. Diabetes mellitus type 2, uncontrolled with hyperglycemia. Continue insulin sliding scale and is initiated at 5 mg twice a day 6. Hypertension. Continue amlodipine 10 mg daily, atenolol 100 mg daily, Catapres 0.05 mg twice daily, hydralazine 100 mg twice daily. 7. Hyperlipidemia. Continue Lipitor 20 mg at bedtime 8. History of CVA with right-sided weakness. Continue aspirin 81 mg daily, Lipitor 20 mg at bedtime for secondary prevention 9. History of coronary artery disease. Continue Imdur 30 mg daily. 10. Generalized anxiety disorder. Xanax on hold. Lorazepam 0.5 mg every 8 hours as needed for anxiety Into 2020: Patient is feeling much better furosemide IV was switched to oral 80 mg twice a day, patient is down on steroid to 30 mg orally daily, still on 6 more days of oral Levaquin to complete her course for the bilateral pneumonia. Her oxygen level is much better on 5 L of O2 she is around 93-95 percentile. Discharge planning been done and patient will be able to go back to [facility] today for PTOT she is very stable medically. Patient Condition at Discharge: Critical Plan - Discharge Summary Discharge Rx Participant: No New Discharge Prescriptions: New Levofloxacin [Levaquin] 500 mg PO Q48H #3 tab predniSONE 30 mg PO DAILY tab Midodrine [ProAmatine] 5 mg PO AC-TID tab Pantoprazole [Protonix] 40 mg PO AC-BRKFST tablet. Albuterol Nebulized [Ventolin Nebulized] 2.5 mg INHALATION RT-Q4H PRN ml PRN Reason: Shortness Of Breath Or Wheezing Continue Acetaminophen Tab [Tylenol] 650 mg PO Q6H PRN PRN Reason: Pain amLODIPine [Norvasc] 10 mg PO DAILY Aspirin 81 mg PO DAILY Atenolol [Tenormin] 100 mg PO DAILY Atorvastatin [Lipitor] 20 mg PO HS Budesonide [Pulmicort] 0.5 mg INHALATION RT-BID@0600,2100 Citalopram Hydrobromide [CeleXA] 20 mg PO DAILY cloNIDine HCL [Catapres] 0.05 mg PO BID Clotrimazole/Betamethasone Dip [Lotrisone Cream] 1 applic TOPICAL BID diphenhydrAMINE & Zinc Cream [Benadryl Cream] 1 applic TOPICAL TID PRN PRN Reason: Itching hydrALAZINE HCL [Apresoline] 100 mg PO BID INSULIN LISPRO (humaLOG) [humaLOG] 2 units SQ ACHS Ipratropium-Albuterol Nebulize [Duoneb 0.5 mg-3 mg/3 ml Soln] 3 ml INHALATION RT-Q6H PRN PRN Reason: Shortness Of Breath Isosorbide Mononitrate ER [Imdur] 30 mg PO DAILY Linagliptin [Tradjenta] 5 mg PO DAILY Melatonin 3 mg PO HS Montelukast Sodium [Singulair] 10 mg PO HS Nystatin 100,000 Unit/ml Susp [Mycostatin Oral Susp] 500,000 units PO QID Pantoprazole Sodium [Protonix] 40 mg PO DAILY@0600 Sennosides/Docusate Sodium [Senna Plus 8.6-50 mg Tablet] 1 tab PO BID@0600,2100 Spironolactone [Aldactone] 25 mg PO DAILY Methylphenidate HCl [Ritalin] 20 mg PO BID@0600,1200 #6 tab ALPRAZolam [Xanax] 0.25 mg PO TID PRN #12 tab PRN Reason: Anxiety Changed Furosemide [Lasix] 80 mg PO BID@0600,1200 #0 Discharge Medication List Acetaminophen Tab [Tylenol] 650 mg PO Q6H PRN 03/22/20 [History] Aspirin 81 mg PO DAILY 03/22/20 [History] Atenolol [Tenormin] 100 mg PO DAILY 03/22/20 [History] Atorvastatin [Lipitor] 20 mg PO HS 03/22/20 [History] Budesonide [Pulmicort] 0.5 mg INHALATION RT-BID@0600,209903/22/20 [History] Citalopram Hydrobromide [CeleXA] 20 mg PO DAILY 03/22/20 [History] Clotrimazole/Betamethasone Dip [Lotrisone Cream] 1 applic TOPICAL BID 03/22/20 [History] INSULIN LISPRO (humaLOG) [humaLOG] 2 units SQ ACHS 03/22/20 [History] Ipratropium-Albuterol Nebulize [Duoneb 0.5 mg-3 mg/3 ml Soln] 3 ml INHALATION RT-Q6H PRN 03/22/20 [History] Isosorbide Mononitrate ER [Imdur] 30 mg PO DAILY 03/22/20 [History] Linagliptin [Tradjenta] 5 mg PO DAILY 03/22/20 [History] Melatonin 3 mg PO HS 03/22/20 [History] Montelukast Sodium [Singulair] 10 mg PO HS 03/22/20 [History] Nystatin 100,000 Unit/ml Susp [Mycostatin Oral Susp] 500,000 units PO QID 03/22/20 [History] Pantoprazole Sodium [Protonix] 40 mg PO DAILY@0600 03/22/20 [History] Sennosides/Docusate Sodium [Senna Plus 8.6-50 mg Tablet] 1 tab PO BID@0600,2100 03/22/20 [History] Spironolactone [Aldactone] 25 mg PO DAILY 03/22/20 [History] amLODIPine [Norvasc] 10 mg PO DAILY 03/22/20 [History] cloNIDine HCL [Catapres] 0.05 mg PO BID 03/22/20 [History] diphenhydrAMINE & Zinc Cream [Benadryl Cream] 1 applic TOPICAL TID PRN 03/22/20 [History] hydrALAZINE HCL [Apresoline] 100 mg PO BID 03/22/20 [History] ALPRAZolam [Xanax] 0.25 mg PO TID PRN #12 tab 03/30/20 [Rx] Albuterol Nebulized [Ventolin Nebulized] 2.5 mg INHALATION RT-Q4H PRN ml 03/30/20 [Rx] Furosemide [Lasix] 80 mg PO BID@0600,1200 #0 03/30/20 [Rx] Levofloxacin [Levaquin] 500 mg PO Q48H #3 tab 03/30/20 [Rx] Methylphenidate HCl [Ritalin] 20 mg PO BID@0600,1200 #6 tab 03/30/20 [Rx] Midodrine [ProAmatine] 5 mg PO AC-TID tab 03/30/20 [Rx] Pantoprazole [Protonix] 40 mg PO AC-BRKFST tablet. 03/30/20 [Rx] predniSONE 30 mg PO DAILY tab 03/30/20 [Rx] Follow up Appointment(s)/Referral(s): Tha Garcia MD [STAFF PHYSICIAN] - 2 Weeks Kaz Roper MD [Primary Care Provider] - 1-2 days Noe Mon MD [STAFF PHYSICIAN] - 1 Week Ambulatory/Diagnostic Orders: Complete Blood Count w/diff [LAB.AMB] Location: None Selected Discharge Disposition: TRANSFER TO SNF/ECF
[2020-03-30 11:44] LABS: Glucose,Whole Blood 171 mg/dL (75-99)
--- NOTE | 2020-03-30 14:21 | P.PN ---
Subjective This is a pleasant 84-year-old female past medical history significant for diabetes mellitus, hypertension, dyslipidemia, chronic kidney disease, CVA, valvular heart disease status post aortic valve replacement. She does not follow in the office with a peoplesoft developer, she states it has been over 10 years. He is seen and examined sitting up in a recliner in no acute distress. Overall she feels as though her symptoms have greatly improved since admission. She is maintained on IV Lasix infusion. 24 hour urine output is 800 mL's. Laboratory data reviewed, WBC 6.7, hemoglobin 11.9, platelets 195, sodium 138, potassium 3.8 and creatinine 1.47. Blood pressure 127/50 heart rate 80 maintaining oxygen saturation on high flow nasal cannula and afebrile. Blood cultures revealing no growth at 24 hours. 03/30/20 Patient seen and examined sitting up in the recliner in no acute distress. She has no symptoms of chest pain, shortness of breath, dizziness or palpitations. She states she was up frequently through the night using the restroom. Otherwise is feeling well. Blood pressure 143/53 heart rate 64 afebrile maintaining oxygen saturation on nasal cannula. GENERAL: Well-appearing, well-nourished and in no acute distress. NECK: Supple without JVD or thyromegaly. LUNGS: Breath sounds clear to auscultation bilaterally. Respiration equal and unlabored. No wheezes, rales or rhonchi. Diminished bilaterally. HEART: Regular rate and rhythm with systolic ejection murmur and aortic click, rubs or gallops. S1 and S2 heard. EXTREMITIES: Normal range of motion, no edema. No clubbing or cyanosis. Peripheral pulses intact. ASSESSMENT Acute on chronic diastolic heart failure Valvular heart disease s/p aortic valve repair. Exact details unavailable Pulmonary hypertension Diabetes mellitus Chronic kidney disease Hypertension PLAN Clinically stable from a cardiac perspective. Continue current medical regimen. Nurse Practitioner note has been reviewed, I agree with a documented findings and plan of care. Patient was seen and examined. Objective - Vital Signs Vital signs: Vital Signs Temp 98.0 F 03/30/20 08:00 Pulse 64 03/30/20 12:00 Resp 16 03/30/20 12:00 BP 143/53 03/30/20 12:00 Pulse Ox 95 03/30/20 12:00 Intake & Output 03/29/20 03/30/20 03/30/20 18:59 06:59 18:59 Intake Total 482 280 240 Output Total 800 1320 700 Balance -758 -4459 -460 Weight 46.1 kg Intake: IV 10 40 Invasive Line 5 10 20 Invasive Line 6 20 Oral 472 240 240 Output: Urine 800 1200 700 Stool 120 Other: Voiding Method Toilet # Voids 2 3 2 # Bowel Movements 3 - Labs CBC & Chem 7: 03/29/20 06:57 03/29/20 06:57 Labs: Abnormal Lab Results - Last 24 Hours (Table) 03/29/20 03/29/20 03/30/20 Range/Units 16:58 20:18 06:22 POC Glucose (mg/dL) 203 H 218 H 131 H (75-99) mg/dL 03/30/20 Range/Units 11:42 POC Glucose (mg/dL) 171 H (75-99) mg/dL Microbiology - Last 24 Hours (Table) 03/27/20 11:31 Blood Culture - Preliminary Blood No Growth after 72 hours
--- NOTE | 2020-03-30 14:25 | PN ---
PROGRESS NOTE The patient is seen for followup for acute kidney injury and volume overload. The patient was maintained on Lasix drip, which is now discontinued. Her serum creatinine was 1.4 yesterday down from 1.8 at peak. Her volume status has improved. She denies any chest pains or shortness of breath. PHYSICAL EXAMINATION: On examination today, blood pressure was 134/85, heart rate 67 per minute. Patient is afebrile. EXAMINATION OF THE HEART: S1, S2. EXAMINATION OF THE LUNGS: Decreased breath sounds at bases. Abdomen is soft, nontender. Examination of lower extremities shows trace edema bilaterally. TRAIN SYSTEM OPERATOR exam grossly intact. LABS: Labs show sodium 138, potassium 3.8, BUN 95, creatinine 1.47, these are from 03/29/2020. ASSESSMENT: 1. Acute kidney injury cardiorenal, currently improved. 2. Congestive heart failure exacerbation, mostly diastolic, acute on top of chronic, now improved. 3. Pneumonia, status post antibiotics. 4. Valvular heart disease with severe pulmonary hypertension. PLAN: Okay for discharge. Followup as outpatient regarding volume status and possible underlying CKD. MMODL / IJN: [id number] /
[2020-03-30 14:37] VITALS: BMI 18.6
[2020-03-30 16:36] VITALS: BP 115/48; PULSE 60; RESP 18
[2020-03-30 17:17] LABS: Glucose,Whole Blood 229 mg/dL (75-99)
--- NOTE | 2020-03-31 09:59 | CDI ---
Documentation Clarification Form Date: 03/31/2020 09:57:00 AM From: Linn Hanson CCS Phone: If you have a question about this query, please contact Leena Hendrix Public Address Announcer at [phone] between 8am and 5pm. Admit Date: 03/22/2020 05:30:00 AM Patient Name: Marie Cota Visit Number: [id number] Discharge Date: 03/30/2020 06:13:00 PM ATTENTION: The Clinical Documentation Specialists (CDI) and [facility] Coding Staff appreciate your assistance in clarifying documentation. Please respond to the clarification below the line at the bottom and electronically sign. The CDI & [facility] Coding staff will review the response and follow-up if needed. Please note: Queries are made part of the Legal Health Record. If you have any questions, please contact the author of this message via ITS. Dr. Kaz Roper Altered Mental Status was documented in the ED, Consults. ED documents: General Exam : Limitations: altered mental status Medical Decision Making : Patient be admitted for further evaluation management of severe hypoxia and monitoring of mental status Consult 03/23 documents: ROS unobtainable: due to mental status History/Risk Factors: CHF, ANDRES, PNA, COPD, DM, CKD Clinical Indicators: Obtunded, Altered mental status Labs: WBC 17.4, Lactic Acid 2.2, Sodium 127 Treatment: Monitor Mental Status- Bipap, High Flow Oxygen, Laxix IV, Roecphin IV, Levaquin IV In your professional opinion, please clarify the etiology of the Altered Mental Status, if known. xx Metabolic Encephalopathy Toxic Encephalopathy Delirium (specify cause): Other condition (please specify) Unable to determine MTDD
--- NOTE | 2020-03-31 10:07 | CDI ---
Documentation Clarification Form Date: 03/31/2020 10:05:00 AM From: Linn Hanson CCS Phone: If you have a question about this query, please contact Lenea Hendrix Online Journalist at [phone] between 8am and 5pm. Admit Date: 03/22/2020 05:30:00 AM Patient Name: Marie Cota Visit Number: [id number] Discharge Date: 03/30/2020 06:13:00 PM ATTENTION: The Clinical Documentation Specialists (CDI) and [facility] Coding Staff appreciate your assistance in clarifying documentation. Please respond to the clarification below the line at the bottom and electronically sign. The CDI & [facility] Coding staff will review the response and follow-up if needed. Please note: Queries are made part of the Legal Health Record. If you have any questions, please contact the author of this message via ITS. Dr. Kaz Roper Patient has been described as underweight, poor appetite, BMI 18.6. History/Risk Factors: CHF, HTN, CKD, DM, COPD, ANDRES Clinical Indicators: Underweight, Poor appetite Patients weight is: 46.1 kg Patients height is: 5 ft 2 in Calculated BMI is: 18.6 Labs: Albumin 3.8, 3.3. 3.2- Total Protein 6.2, 5.4, 5.2 Treatments: Glucerna TID, Consistent Carb Dietary Consult: 03/22, 03/25, 03/30 In order to capture the severity of condition associated with patient BMI of , a clinical diagnosis needs to be documented by the physician. Please clarify: Cachexia Underweight Malnutrition _xx Mild _Moderate _Severe Other Unable to determine MTDD
== END 2020-03-30 18:13 | DRG 291 ==
LOC: EC 03:42 → SUPCPDRO 03:42 → 3SCARD 05:30
PROVIDERS: ADMIT Internal Medicine Geriatric Medicine; ATTEND Internal Medicine Geriatric Medicine
PROC: 5A0955A Assistance with Respiratory Ventilation, Greater than 96 Consecutive Hours, High Flow/Velocity Cannula (ICD-10-PCS; principal; 2020-03-22)
PROC: 5A09457 Assistance with Respiratory Ventilation, 24-96 Consecutive Hours, Continuous Positive Airway Pressure (ICD-10-PCS; 2020-03-22)
PROC: 05HD33Z Insertion of Infusion Device into Right Cephalic Vein, Percutaneous Approach (ICD-10-PCS; 2020-03-25)
DX: I13.0 Hypertensive heart and chronic kidney disease with heart failure and stage 1 through stage 4 chronic kidney disease, or unspecified chronic kidney disease (principal); J96.21 Acute and chronic respiratory failure with hypoxia; J18.9 Pneumonia, unspecified organism; I50.33 Acute on chronic diastolic (congestive) heart failure; G93.41 Metabolic encephalopathy; E44.1 Mild protein-calorie malnutrition; N17.9 Acute kidney failure, unspecified; J44.0 Chronic obstructive pulmonary disease with (acute) lower respiratory infection; J44.1 Chronic obstructive pulmonary disease with (acute) exacerbation; I69.351 Hemiplegia and hemiparesis following cerebral infarction affecting right dominant side; E87.1 Hypo-osmolality and hyponatremia; Z68.1 Body mass index [BMI] 19.9 or less, adult; I27.22 Pulmonary hypertension due to left heart disease; E86.1 Hypovolemia; E11.22 Type 2 diabetes mellitus with diabetic chronic kidney disease; Z95.2 Presence of prosthetic heart valve; Z99.81 Dependence on supplemental oxygen; N18.30 Chronic kidney disease, stage 3 unspecified; E11.65 Type 2 diabetes mellitus with hyperglycemia; Z79.4 Long term (current) use of insulin; Z66 Do not resuscitate; Z20.822 Contact with and (suspected) exposure to COVID-19; E78.5 Hyperlipidemia, unspecified; F41.1 Generalized anxiety disorder; I25.10 Atherosclerotic heart disease of native coronary artery without angina pectoris; F41.0 Panic disorder [episodic paroxysmal anxiety]; K21.9 Gastro-esophageal reflux disease without esophagitis; M15.9 Polyosteoarthritis, unspecified; I08.3 Combined rheumatic disorders of mitral, aortic and tricuspid valves; I69.322 Dysarthria following cerebral infarction; Z71.3 Dietary counseling and surveillance; Z79.82 Long term (current) use of aspirin; Z79.51 Long term (current) use of inhaled steroids; Z79.899 Other long term (current) drug therapy; Z88.5 Allergy status to narcotic agent; Z88.0 Allergy status to penicillin; Z82.49 Family history of ischemic heart disease and other diseases of the circulatory system
CPT/HCPCS: 36410; 36415; 71045; 76770; 76937; 78580; 80048; 80053; 80202; 81001; 82550; 83605; 83615; 83735; 83880; 84100; 84145; 84484; 85025; 85027; 85379; 86140; 87040; 87070; 87205; 87635; 93005; 93306; 94640; 94660; 94760; 96365; 96375; 99291